=== PATIENT | male | born 1965 | race Caucasian/White ===

== ENCOUNTER → 2019-09-24 | Outpatient (CLI) | payer BC ==
--- NOTE | 2019-09-24 13:40 | EST ---
EXERCISE STRESS DATE OF SERVICE: 09/24/2019 AGE: 54 SEX: Male HT: 69" WT: 173 pounds PROTOCOL: Tejinder STAGE: III DURATION OF EXERCISE: 7 minutes 19 seconds HEART RATE REST: 70 BLOOD PRESSURE REST: 153/102 MAXIMUM HEART RATE ACHIEVED: 148 MAXIMUM BLOOD PRESSURE: 225/81 85% MPHR: 139 100% MPHR: 164 METS: 8.7 INDICATIONS: Physical CLINICAL INFORMATION: Baseline EKG revealed normal sinus rhythm without significant ST-T changes. Patient walked for 7 minutes 19 seconds achieved a maximal heart rate of 148 beats per minute developed fatigue and shortness of breath but did not have angina or arrhythmia. Peak blood pressure was 225/81. Patient had hypertensive response to exercise. No anginal symptoms. No EKG changes. No arrhythmia. This is a negative stress test with somewhat limited exercise capacity. There is no evidence to suggest ischemia on this stress test. MMODL / IJN: [id number] /
== END | disposition home or self-care (01) ==
LOC: RADNMMAIN 08:26
PROVIDERS: ATTEND Nurse Practitioner Family
DX: R94.31 Abnormal electrocardiogram [ECG] [EKG] (principal)
CPT/HCPCS: 93017

== ENCOUNTER 2022-02-15 12:38 | Day surgery (SDC) | payer BC ==
[2022-02-08 10:17] VITALS: BMI 23.2
[~2022-02-15 12:38] MED LIST: ALBUTEROL NEB (CONC) 2.5 MG/0.5 ML INHALATION ONE; LACTATED RINGERS 1,000 ML IV SCH; LIDOCAINE 2% (PF) 20 MG/ML 5 ML VIAL INHALATION ONE; LIDOCAINE VISCOUS 300 MG/15 ML CUP MUCOUS MEM ONE; SODIUM CHLORIDE 0.9% 1,000 ML IV SCH; fentaNYL (PF) 50 MCG/ML 2 ML AMP IV PRN
[2022-02-15 13:13] VITALS: RESP 16
[2022-02-15] MEDS ORDERED: LIDOCAINE 2% INJ 20 MG/ML (2 ML VIAL) ONE (14:45)
[2022-02-15] MEDS ORDERED: fentaNYL (PF) 50 MCG/ML 2 ML AMP ONE (14:45)
[2022-02-15] MEDS ORDERED: SUCCINYLCHOLINE CHLORIDE 100 MG/5 ML SYR IV ONE (14:45)
[2022-02-15] MEDS ORDERED: PROPOFOL 10 MG/ML 20 ML VIAL IV ONE (14:45)
[2022-02-15] MEDS ORDERED: MIDAZOLAM 2 MG/2 ML VIAL ONE (14:45)
[2022-02-15] MEDS ORDERED: ROCURONIUM 10 MG/ML (5 ML VIAL) IV ONE (14:45)
--- NOTE | 2022-02-15 15:23 | P.PCN ---
Date of Procedure: 02/15/22 Preoperative Diagnosis: Right lung mass Postoperative Diagnosis: Mass, endobronchial, causing complete obstruction of the bronchus intermedius Procedure(s) Performed: Flexible bronchoscopy Endobronchial biopsies of a mass in the bronchus intermedius Endobronchial brushings of the mass and the bronchus intermedius BAL of the mass in the bronchus intermedius. Anesthesia: GETA Surgeon: Jayde Huynh Estimated Blood Loss (ml): 20 Pathology: other Condition: stable Disposition: same day Operative Findings: The patient had a preoperative computed tomography scan of the chest using the Veran protocol. The CAT scan images were reviewed. The right lung opacity was identified it was mapped appropriately. The CAT scan images are uploaded into a USB and then into the [employer] tower. After obtaining the consent the patient was taken to the OR suite he was in tubated and put on mechanical ventilation by anesthesia then the scope was advanced to the ET tube until the Trachea was seen and it was normal and then the irais appears normal then the scope advanced to the left main and ANNEMARIE LB1- LB3 were seen and no endobronchial lesions were seen then the scope advanced to the lingula and the LB4 and LB5 were seen and no endobronchial lesions were seen the scope retracted and advanced to the left lower lobes LB6 to LB12 were seen one by one and no endobronchial lesions, then the scope was retracted back to the irais and advanced to the Right main and RUL RB1 and RB2 and RB3 were seen one by one and no endobronchial lesions were seen the scope. The posterior segment of the right upper lobe bronchus was slightly narrowed. Nevertheless, there was no endobronchial tumor. The proximal bronchus intermedius was within normal limits. However, in the mid bronchus intermedius, there was a large endobronchial tumor causing complete obstruction of the airway. The right middle lobe bronchus and the right lower lobe bronchus was not visualized as the mass was completely obstructing the airway. At that point, no navigation guidance was used. Under direct visualization, endobronchial biopsies of the mass and the bronchus intermedius was done. Following that, endobronchial brushings and bronchoalveolar lavage of the mass was done. Bleeding was e ncountered post biopsy. This was controlled by applying icewater saline into the airway and causing adequate hemostasis. At the completion of the procedure, there was no more bleeding. The bronchoscope was removed. The patient is to be extubated and transferred to recovery by BUSINESS CONTINUITY PLANNING DIRECTOR.
[2022-02-15 15:40] VITALS: TEMP 98.1
[2022-02-15 16:32] VITALS: BP 117/73; PULSE 104
--- NOTE | 2022-02-15 18:25 | CT ---
EXAMINATION TYPE: CT Chest wo con Veran Protocol DATE OF EXAM: 02/15/2022 COMPARISON: CT dated 02/01/2022 HISTORY: pre-op bronch CT DLP: 655 mGycm Automated exposure control for dose reduction was used. TECHNIQUE: Multiple CT scan of the chest without IV contrast administration as per VERAN protocol. FINDINGS: Again noted is the large mass extending from the inferior aspect of the right hilum down to the middl e and right lower lobes measuring 6.8 x 10.1 cm. The lesion circumferentially surrounds the right upp er lobe bronchus and completely obstructing the bronchus intermedius. Tiny micronodules are seen in the right lower lobe, possibly metastatic. Paraseptal emphysema seen in the upper lobes with multiple air bulla. Linear atelectasis in the left lower lobe. Fibrotic changes seen in the left lung apex. Patent trachea and left main bronchus. No pleural or pericardial effusion. No gross organomegaly. The pulmonary trunk measures 2.9 cm. Minim al arterial atherosclerotic calcifications. Subcarinal lymph node measuring 10 mm. Suspected right hi lar lymph nodes, suboptimally assessed by this CT scan. No other pathologically enlarged mediastinal or left hilar lymph nodes. No axillary lymphadenopathy. Previous cholecystectomy. Bilateral renal cysts, without gross suspicious feature. No gross aggressiv e bone lesion. IMPRESSION: Suspicious right lung mass as described above, for correlation with PET scan results and tissue diagn osis.
[2022-02-15 23:12] LABS: Appearance,BF Bloody
== END 2022-02-15 16:49 | disposition home or self-care (01) ==
LOC: ORWHC2ENDO 12:38
PROVIDERS: ATTEND Internal Medicine Critical Care Medicine
DX: C34.11 Malignant neoplasm of upper lobe, right bronchus or lung (principal); R04.2 Hemoptysis; I10 Essential (primary) hypertension; J44.9 Chronic obstructive pulmonary disease, unspecified; Z86.16 Personal history of COVID-19; Z83.3 Family history of diabetes mellitus; Z87.891 Personal history of nicotine dependence; Z90.49 Acquired absence of other specified parts of digestive tract; Z98.890 Other specified postprocedural states; Z79.02 Long term (current) use of antithrombotics/antiplatelets; Z79.899 Other long term (current) drug therapy
CPT/HCPCS: 87798 ×3; 87496; 87498; 87529; 88305; 89050; 87252; 87502; 87634; 87070; 87205; 87116; 87102; 87206; 71250; 31625; 31623; 31624; J2250; J3010; J0330; J2704; J2001; 88104; 88108

== ENCOUNTER → 2022-02-24 | Outpatient (CLI) | payer BC ==
--- NOTE | 2022-02-27 06:55 | PE ---
EXAMINATION TYPE: PET CT fusion skull to thigh DATE OF EXAM: 02/24/2022 COMPARISON: Most recent CTA chest February 01, 2022 HISTORY: Newly diagnosed lung cancer on bronchoscopy February 15, 2022 TECHNIQUE: Following the intravenous administration of 13.9 mCi of F-18 FDG, whole body images are p erformed from the skull base to the midthigh. Images are reviewed on the computer in the coronal, ax ial, and sagittal planes. Reconstructed rotating images are created on independent workstation and r eviewed on the computer. A localization and attenuation correction CT is performed in conjunction w ith the PET scan. Blood glucose level equals 98. SCAN: Initial Scan FINDINGS: SKULL BASE AND NECK: No areas of abnormal hypermetabolic uptake. CHEST, MEDIASTINUM, AND HILAR REGION: Background mild to moderate underlying emphysematous change gre atest in the upper lungs is redemonstrated. Persistent lobulated anterior right mid to lower lung mas s or neoplasm measuring approximately 9.0 x 6.4 cm axial image 106 with some peripheral atelectatic c hange and small adjacent fluid, max SUV is 19.56 on axial image 108. Suspicious 1.1 by 1.1 cm slightly hypermetabolic subcarinal lymph node axial image 95, max SUV is 2.8 1. Slight hypermetabolic focus posterior to the ascending aorta without CT correlate. Max SUV is 3.63 . ABDOMEN AND PELVIS: Near 1.0 cm hypermetabolic focus in the deep liver fusion image 114, max SUV is [address] correlate. Normal excretion. No adrenal masses. No additional areas of abnormal hypermetabolic uptake. OSSEOUS STRUCTURES: No areas of abnormal hypermetabolic uptake. OTHER CT: Elevated right hemidiaphragm with right-sided volume loss. Cholecystectomy clips are present. There are several thin-walled cysts scattered throughout both kidn eys. Retroaortic left renal vein which is normal variant is incidentally noted. Normal-appearing appe ndix. Some diverticula in the slightly redundant sigmoid colon. Enlarged prostate consistent with BPH . IMPRESSION: Large right lung mass or neoplasm. Suspect subcarinal adenopathy though nonspecific. Poss ible additional developing mediastinal adenopathy. See above. Possible nonspecific near 1.0 cm liver lesion on PET without CT correlate. Consider liver protocol contrast enhanced CT or MRI to further ev aluate.
== END | disposition home or self-care (01) ==
LOC: RADXRMAIN 10:14
PROVIDERS: ATTEND Internal Medicine Hematology & Oncology
DX: C34.11 Malignant neoplasm of upper lobe, right bronchus or lung (principal)
CPT/HCPCS: 78815; A9552

== ENCOUNTER 2022-04-09 15:57 | Inpatient (IN) | payer BC ==
[2022-04-09] MEDS ORDERED: ONDANSETRON 4 MG/2 ML VIAL IVP STA (16:11)
[2022-04-09] MEDS ORDERED: SODIUM CHLORIDE 0.9% 1,000 ML IV STA ×4 (16:11→19:49)
--- NOTE | 2022-04-09 16:30 | XR ---
EXAMINATION TYPE: XR chest 2V DATE OF EXAM: 04/09/2022 COMPARISON: 02/09/2021 HISTORY: Short of breath TECHNIQUE: FINDINGS: There is blunting right costophrenic angle. There is consolidation right lower lobe and 50% opacification right hemithorax. Left lung is clear. Heart size is normal. No heart failure. IMPRESSION: Right-sided pulmonary consolidation and pleural fluid which is mostly new compared to the old exam. No obvious heart failure.
[2022-04-09 16:36] LABS: HCT 34.1 % (39.0-53.0); HGB 10.5 gm/dL (13.0-17.5); MCH 26.4 pg (25.0-35.0); MCHC 30.9 g/dL (31.0-37.0); MCV 85.5 fL (80.0-100.0); Mean Platelet Volume 7.6; Platelet Count 228 k/uL (150-450); RBC 3.99 m/uL (4.30-5.90); RDW 15.2 % (11.5-15.5)
[2022-04-09 16:47] LABS: Albumin 2.4 g/dL (3.5-5.0); Calcium 7.1 mg/dL (8.4-10.2); Total Bilirubin 3.8 mg/dL (0.2-1.3); Total Protein 5.2 g/dL (6.3-8.2)
[2022-04-09 16:59] LABS: WBC 0.1 k/uL (3.8-10.6)
[2022-04-09] MEDS ORDERED: VANCOMYCIN IV PER PHARMACY 1 EACH MISC MISCELLANE PRN (16:59)
[2022-04-09] MEDS ORDERED: SODIUM CHLORIDE 0.9% 500 ML 500 ML IV STA (17:01)
[2022-04-09] MEDS ORDERED: CEFEPIME 2 GM in SODIUM CHLORIDE 0.9% 100 ML IVPB STA (17:04)
[2022-04-09 17:05] LABS: INR 1.4 (<1.2); Partial Thromboplastin Time 21.9 sec (22.0-30.0); Prothrombin Time 14.7 sec (9.0-12.0)
[2022-04-09] MEDS ORDERED: VANCOMYCIN 1,250 MG in SODIUM CHLORIDE 0.9% 250 ML IVPB STA (17:05)
[2022-04-09] MEDS ORDERED: NALOXONE 0.4 MG/ML 1 ML VIAL IV PRN (17:43)
[2022-04-09] MEDS ORDERED: MORPHINE SULFATE 4 MG/ML SYRINGE IV PRN (17:43)
[2022-04-09] MEDS ORDERED: ONDANSETRON 4 MG/2 ML VIAL IVP PRN (17:43)
--- NOTE | 2022-04-09 17:49 | ED ---
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 Patient's complaint of right lung pain, shortness of breath in addition to a productive cough of a greenish, brown sputum for a few days. Patient is also complaining of nausea, nonbilious nonbloody emesis, nonbloody diarrhea that has been occurring since his last chemo treatment 2-3 days ago. Presents over concern for dehydration as well as evaluation for his lung pain. Does not have a port. Denies fevers. Denies sick contacts. Denies urinary complaints. Denies headaches or blurry vision. Denies weakness or n umbness. No other acute complaints at this time. Presents for further evaluation. Denies any other chest pain. - Related Data Home Medications Medication Instructions Recorded Confirmed Benzonatate [Tessalon Perles] 100 mg PO TID PRN 04/09/22 04/09/22 ondansetron HCL [Zofran] 8 mg PO Q8HR PRN 04/09/22 04/09/22 Allergies Allergy/AdvReac Type Severity Reaction Status Date / Time No Known Allergies Allergy Verified 04/09/22 17:56 Review of Systems ROS Statement: Those systems with pertinent positive or pertinent negative responses have been documented in the HPI. Review of Systems: CONST: Denies fever EYES: Denies blurry vision ENT: Denies nasal congestion C/V: Denies Chest pain RESP: Endorses Shortness of breath GI: Denies abdominal pain : Denies dysuria SKIN: Denies rash. MSK: Denies joint pain. NEURO: Endorses fatigue ROS Other: All systems not noted in ROS Statement are negative. Past Medical History Past Medical History: Cancer, Hypertension Additional Past Medical History / Comment(s): Hx Covid 11/2020. Some emphysema. Cancer to lungs and mets to brain. History of Any Multi-Drug Resistant Organisms: None Reported Past Surgical History: Cholecystectomy Additional Past Surgical History / Comment(s): DENTAL IMPLANTS WITH ANESTHESIA,. Radiation and chemo Past Anesthesia/Blood Transfusion Reactions: No Reported Reaction Past Psychological History: No Psychological Hx Reported Smoking Status: Former smoker Past Alcohol Use History: Occasional Past Drug Use History: None Reported - Past Family History Father Family Medical History: Cancer Additional Family Medical History / Comment(s): pancreatic cancer General Exam - General Exam Comments Initial Comments: General: Appears cachectic. Appears dry. Afebrile HEAD: Normal with no signs of head trauma. EYES: PERRLA, EOMI, conjunctiva normal, no discharge. ENT: Hearing grossly intact, normal oropharynx. Dry mucous membranes. RESPIRATORY: Reduced lung sounds over the right lower lung field. Otherwise clear breath sounds the right upper lung field and left flank. No obvious rhonchi or wheezing. No respiratory distress. Saturating 96% on room air. C/V: Tachycardic with a Regular rhythm. S1 and S2 auscultated, no edema, peripheral pulses 2+ and intact throughout ABD: Abd is soft, nontender, nondistended EXT: Normal range of motion, no obvious deformity SKIN: No rashes or lesions observed on exposed skin. NEURO: Alert and oriented 4. No focal deficits. Limitations: no limitations Course Vital Signs 04/09/22 04/09/22 04/09/22 16:00 16:51 17:26 Temperature 98.6 F Pulse Rate 138 H 137 H 128 H Respiratory 18 18 18 Rate Blood Pressure 107/53 86/57 108/56 O2 Sat by Pulse 96 95 99 Oximetry 04/09/22 18:33 Temperature Pulse Rate 122 H Respiratory 18 Rate Blood Pressure 90/51 O2 Sat by Pulse 98 Oximetry Procedures - Sepsis Sepsis Focused Exam #1 Time Sepsis Criteria Met: 17:00 Sepsis Focused Exam Date: 04/09/22 Sepsis Focused Exam Time: 18:00 Sepsis Focused Exam Complete: Yes Vital Signs & RN Notes Reviewed: Yes Capillary Refill: > 2 Seconds: Fingers, Toes Peripheral Pulses: Normal: Radial (R), Radial (L) Skin Color: Normal for Patient Respiratory Exam: decreased breath sounds Cardiovascular Exam: tachycardia Medical Decision Making - Medical Decision Making Based on the patient's presentation and physical exam, I'm concerned for dehydration from the profuse diarrhea and emesis. Cannot rule out pulmonary etiology at this time with his history of cancer due to the reduced breath sounds as well as shortness of breath. We'll obtain cardiopulmonary workup as well as infectious workup. Patient was in agreement this plan. Patient has sinus tachycardia but otherwise vital signs are within normal limits. EKG shows sinus tachycardia. Laboratory studies showed a leukopenia of 0.1. Mild hyponatremia of 131. Patient is a slightly elevated bilirubin of 3.8. Calcium also slightly decreased. Covid and flu negative. Troponin is negative. Urinalysis pending at this time. Chest x-ray shows findings concerning for a right-sided pulmonary consolidation/pneumonia as well as pleural effusion both of which are new. Patient does have a history of right lung cancer which does make interpretation difficult, however with his symptoms there is concern for possible pneumonia. Patient is also leukopenia. I discussed the findings with the patient. Due to his tachycardia, leukopenia, as well as concern for pneumonia, patient also had a slight episode of hypotension with systolics in the 80s, patient did meet sepsis criteria at 1700. Patient started on empiric antibiotics of vancomycin and cefepime. Patient was given 2 L fluid boluses, and started on a normal maintenance drip. Blood pressures did improve. Lactic acid was within normal limits. Blood cultures were already sent. Patient did respond to therapy, as his heart rate was improving with fluid therapy. Blood pressure did improve following fluids as well with systolics in the 100s. Patient is resting comfortably at this time. I discussed the case with oncology isolation washer, Dr. Richardson was in agreement with this plan. Consult was placed the patient's oncologist Dr. Dent. Consult was also placed to pulmonology for the pleural effusion, lung cancer, and concern for pneumonia. I spoke with the admitting physician, Dr. Dubon who was in ag reement with this plan. Patient was admitted in serious condition to telemetry bed. - Lab Data Result diagrams: 04/09/22 16:21 04/09/22 16:21 Lab Results 04/09/22 04/09/22 04/09/22 Range/Units 16:21 16:21 16:21 WBC 0.1 L* (3.8-10.6) k/uL RBC 3.99 L (4.30-5.90) m/uL Hgb 10.5 L (13.0-17.5) gm/dL Hct 34.1 L (39.0-53.0) % MCV 85.5 (80.0-100.0) fL MCH 26.4 (25.0-35.0) pg MCHC 30.9 L (31.0-37.0) g/dL RDW 15.2 (11.5-15.5) % Plt Count 228 (150-450) k/uL MPV 7.6 Differential Comment PT 14.7 H (9.0-12.0) sec INR 1.4 H (<1.2) APTT 21.9 L (22.0-30.0) sec Sodium 131 L (137-145) mmol/L Potassium 4.0 (3.5-5.1) mmol/L Chloride 97 L (98-107) mmol/L Carbon Dioxide 24 (22-30) mmol/L Anion Gap 10 mmol/L BUN 28 H (9-20) mg/dL Creatinine 1.06 (0.66-1.25) mg/dL Est GFR (CKD-EPI)AfAm 89 (>60 ml/min/1.73 sqM) Est GFR (CKD-EPI)NonAf 77 (>60 ml/min/1.73 sqM) Glucose 97 (74-99) mg/dL Plasma Lactic Acid Adams (0.7-2.0) mmol/L Calcium 7.1 L (8.4-10.2) mg/dL Total Bilirubin 3.8 H (0.2-1.3) mg/dL AST 15 L (17-59) U/L ALT 17 (4-49) U/L Alkaline Phosphatase 179 H (38-126) U/L Troponin I (0.000-0.034) ng/mL Total Protein 5.2 L (6.3-8.2) g/dL Albumin 2.4 L (3.5-5.0) g/dL Amylase 33 (30-110) U/L Lipase 20 L (23-300) U/L Influenza Type A (PCR) (Not Detectd) Influenza Type B (PCR) (Not Detectd) RSV (PCR) (Not Detectd) SARS-CoV-2 (PCR) (Not Detectd) 04/09/22 04/09/22 04/09/22 Range/Units 16:21 16:21 16:27 WBC (3.8-10.6) k/uL RBC (4.30-5.90) m/uL Hgb (13.0-17.5) gm/dL Hct (39.0-53.0) % MCV (80.0-100.0) fL MCH (25.0-35.0) pg MCHC (31.0-37.0) g/dL RDW (11.5-15.5) % Plt Count (150-450) k/uL MPV Differential Comment PT (9.0-12.0) sec INR (<1.2) APTT (22.0-30.0) sec Sodium (137-145) mmol/L Potassium (3.5-5.1) mmol/L Chloride (98-107) mmol/L Carbon Dioxide (22-30) mmol/L Anion Gap mmol/L BUN (9-20) mg/dL Creatinine (0.66-1.25) mg/dL Est GFR (CKD-EPI)AfAm (>60 ml/min/1.73 sqM) Est GFR (CKD-EPI)NonAf (>60 ml/min/1.73 sqM) Glucose (74-99) mg/dL Plasma Lactic Acid Adams 1.3 (0.7-2.0) mmol/L Calcium (8.4-10.2) mg/dL Total Bilirubin (0.2-1.3) mg/dL AST (17-59) U/L ALT (4-49) U/L Alkaline Phosphatase (38-126) U/L Troponin I <0.012 (0.000-0.034) ng/mL Total Protein (6.3-8.2) g/dL Albumin (3.5-5.0) g/dL Amylase (30-110) U/L Lipase (23-300) U/L Influenza Type A (PCR) Not Detected (Not Detectd) Influenza Type B (PCR) Not Detected (Not Detectd) RSV (PCR) Not Detected (Not Detectd) SARS-CoV-2 (PCR) Not Detected (Not Detectd) - EKG Data -: EKG Interpreted by Me Critical Care Time Critical Care Time: Yes Total Critical Care Time: 35 Critical Care Time: Upon my evaluation, this patient had a high probability of imminent or life- threatening deterioration due to sepsis, metastatic cancer, dehydration, tachycardia which required my direct attention, intervention, and personal management. I have personally provided 35 minutes of critical care time exclusive of time spent on separately billable procedures. Time includes review of laboratory data, radiology results, discussion with consultants, and monitoring for potential decompensation. Interventions were performed as documented in my note. Disposition Clinical Impression: Pneumonia, Sepsis, Metastatic lung cancer (metastasis from lung to other site), Dehydration, Diarrhea, Nausea and vomiting, Sinus tachycardia, Post chemo evaluation, Leukopenia, Pleural effusion Disposition: ADMITTED IP TO THIS HOSP Condition: Serious Time of Disposition: 17:30
[2022-04-09] MEDS ORDERED: ONDANSETRON 4 MG TAB PO PRN (20:45)
[2022-04-09] MEDS ORDERED: BENZONATATE 100 MG CAP PO PRN (20:45)
[2022-04-09] MEDS: HEPARIN SODIUM,PORCINE/PF 5,000 UNIT/0.5 ML SYRINGE SQ SCH (23:25)
[2022-04-09] MEDS: CEFEPIME 2 GM in SODIUM CHLORIDE 0.9% 100 ML IVPB SCH (23:26)
[2022-04-10] MEDS: VANCOMYCIN 1,250 MG in SODIUM CHLORIDE 0.9% 250 ML IVPB SCH ×2 (06:26→18:47)
--- NOTE | 2022-04-10 07:23 | HP ---
HISTORY AND PHYSICAL CHIEF COMPLAINTS: Weakness and hypotension. HISTORY OF PRESENT ILLNESS: This 57-year-old gentleman with a past medical history of hypertension, COPD, also had CA lung with mets to the brain. The patient is on chemotherapy. The patient was progressively becoming weak this week and found the patient was significantly weak and hypotensive. The patient was taken to [facility]. The patient has significant neutropenia. The patient is given broad-spectrum IV antibiotics for neutropenic sepsis and possible pneumonia. The patient admitted for further evaluation and treatment. There is no history of any fever, rigors, or chills at this time. The chest x-ray which was reviewed personally by me showed evidence of possible right-sided pneumonia and effusion also. The patient also has some diarrhea. PAST MEDICAL HISTORY: History of lung cancer, hypertension, chemotherapy. HOME MEDICATIONS: Reviewed include Zofran, doses and the rest of the medications are ALLERGIES: None. FAMILY HISTORY: History of a pancreatic cancer in family. SOCIAL HISTORY: History of smoking. REVIEW OF SYSTEMS: Fourteen-point review is negative except as mentioned earlier. PHYSICAL EXAMINATION: VITAL SIGNS: Pulse is 122, blood pressure 90/51, and respirations 18. HEENT: Conjunctivae normal. Oral mucosa dry. NECK: No JVD. CARDIOVASCULAR: S1, S2. RESPIRATION: Breath sounds diminished at the bases, few scattered rhonchi and crackles on right side. ABDOMEN: Soft, nontender, no masses palpable. EXTREMITIES: No edema, no swelling. NERVOUS SYSTEM: As mentioned earlier, moves all limbs, mild diffuse weakness. SKIN: No rashes. JOINTS: No active deforming LABS: Reviewed include WBC 0.9, other labs are noted. ASSESSMENT: 1. Severe neutropenic sepsis. 2. Carcinoma lung, on chemotherapy. 3. Possible pneumonia. 4. Diarrhea, rule out C difficile colitis. 5. Hypertension. 6. Multiple medical issues. RECOMMENDATIONS: This 57-year-old gentleman presented with severe sepsis as well as hypotension. We will initiate broad-spectrum IV antibiotics, obtain the cultures. Infectious Disease and Hematology/ Oncology evaluation. Repeat labs. The patient has severe neutropenia also. Will repeat the labs and also recommend pulmonary consultation as well. Dr. Huynh has seen the patient previously. PROGNOSIS: Extremely guarded because of multiple complex medical conditions. MMODL / IJN: [id number] / [facility]
[2022-04-10 08:13] LABS: HCT 27.8 % (39.0-53.0); Hypochromasia Slight; MCH 26.8 pg (25.0-35.0); MCHC 30.8 g/dL (31.0-37.0); Platelet Count 168 k/uL (150-450); RDW 15.3 % (11.5-15.5)
[2022-04-10 08:34] LABS: African American GFR (CKD) >90 (>60 ml/min/1.73 sqM); Anion Gap 12 mmol/L; Blood Urea Nitrogen 19 mg/dL (9-20); Calcium 6.7 mg/dL (8.4-10.2); Carbon Dioxide 20 mmol/L (22-30); Chloride 103 mmol/L (98-107); Glucose 66 mg/dL (74-99); Non-African American GFR(CKD) >90 (>60 ml/min/1.73 sqM); Potassium 3.3 mmol/L (3.5-5.1); Sodium 135 mmol/L (137-145); WBC 0.1 k/uL (3.8-10.6)
[2022-04-10 08:35] LABS: HGB 8.6 gm/dL (13.0-17.5)
[2022-04-10 09:38] LABS: Rouleaux Present
[2022-04-10] MEDS: CEFEPIME 2 GM in SODIUM CHLORIDE 0.9% 100 ML IVPB SCH ×3 (10:22→23:25)
[2022-04-10] MEDS: HEPARIN SODIUM,PORCINE/PF 5,000 UNIT/0.5 ML SYRINGE SQ SCH ×3 (10:25→23:25)
--- NOTE | 2022-04-10 12:35 | P.CNPUL ---
History of Present Illness Consult date: 04/10/22 Requesting physician: Massimo Dubon Reason for consult: dyspnea, cough, COPD, hypoxemia, pleural effusion, lung mass, abnormal CXR/CT Chief complaint: Shortness of breath, abnormal chest x-ray, lung cancer. History of present illness: Pulmonary consult dated 04/10/2022. 57-year-old male with a recent diagnosis of squamous cell lung, with metastasis. The patient underwent bronchoscopy by one of my partners, in January. It showed complete obstruction of the bronchus intermedius, and he was found to have metastasis to the brain, and has had radiation to the lung and brain, and chemotherapy. The patient came in with a number of complaints including cough, shortness of breath, right-sided chest discomfort, nausea, vomiting, diarrhea, and constipation. We were consulted primarily because of the abnormal chest x- ray, showing consolidation and mass in the right lung, with a right-sided pl eural effusion. Previous notes, x-rays, CAT scans, procedure notes, were all reviewed. He is currently on 2 L nasal cannula, and saline at 20 mL an hour. In addition, he is on cefepime and vancomycin. His last chemotherapy was last Sunday. White count is 0.1, hemoglobin 8.6, hematocrit 27.8, and platelet count 260,000. PT is 14.7 with an INR 1. sodium 135, potassium 3.3, chlorides 103, CO2 20, anion gap 12, BUN 19, creatinine 0.79. Cortisol level is 40. Chest x-ray shows consolidation and infiltrate in the right lower lobe, with pleural effusion, which may be loculated. Review of Systems REVIEW OF SYSTEMS: CONSTITUTIONAL: Weakness NEUROLOGIC: [ Negative.] HEENT: [ Negative.] CARDIAC: [Negative.] PULMONARY: Shortness of breath, cough. GI: Nausea, vomiting, diarrhea, constipation. : [Negative.] RHEUMATOLOGIC: [ Negative.] IMMUNOLOGIC: [ Negative.] ENDOCRINE: [Negative. ] DERMATOLOGIC: [Negative.] Past Medical History Past Medical History: Cancer, Hypertension Additional Past Medical History / Comment(s): Hx Covid 11/2020. Some emphysema. Cancer to lungs and mets to brain. History of Any Multi-Drug Resistant Organisms: None Reported Past Surgical History: Cholecystectomy Additional Past Surgical History / Comment(s): DENTAL IMPLANTS WITH ANESTHESIA,. Radiation and chemo Past Anesthesia/Blood Transfusion Reactions: No Reported Reaction Past Psychological History: No Psychological Hx Reported Smoking Status: Former smoker Past Alcohol Use History: Occasional Past Drug Use History: None Reported - Past Family History Father Family Medical History: Cancer Additional Family Medical History / Comment(s): pancreatic cancer Medications and Allergies Home Medications Medication Instructions Recorded Confirmed Type Benzonatate [Tessalon Perles] 100 mg PO TID PRN 04/09/22 04/09/22 History ondansetron HCL [Zofran] 8 mg PO Q8HR PRN 04/09/22 04/09/22 History Allergies Allergy/AdvReac Type Severity Reaction Status Date / Time No Known Allergies Allergy Verified 04/09/22 17:56 Physical Exam Osteopathic Statement: *. No significant issues noted on an osteopathic structural exam other than those noted in the History and Physical/Consult. Vitals: Vital Signs Temp Pulse Pulse Pulse Resp BP BP 04/10/22 04:00 98.9 F 116 H 16 111/67 04/10/22 02:00 120 H 04/10/22 00:00 98.6 F 120 H 16 99/55 04/09/22 20:30 98.3 F 117 H 117 H 16 94/55 04/09/22 18:33 122 H 18 90/51 04/09/22 17:26 128 H 18 108/56 04/09/22 16:51 137 H 18 86/57 04/09/22 16:00 98.6 F 138 H 18 107/53 Pulse Ox 04/10/22 04:00 99 04/10/22 02:00 04/10/22 00:00 90 L 04/09/22 20:30 99 04/09/22 18:33 98 04/09/22 17:26 99 04/09/22 16:51 95 04/09/22 16:00 96 Intake and Output 04/09/22 04/10/22 04/10/22 22:59 06:59 14:59 Intake Total 1455 118 Output Total 450 Balance 1005 118 Intake: Intake, IV Titration 1130 Amount Cefepime 2 gm In Sodium 100 Chloride 0.9% 100 ml @ 200 mls/hr IVPB ONCE [facility] Rx#:[id number] Sodium Chloride 0.9% 1, 780 000 ml @ 130 mls/hr IV . Q7H42M [facility] Rx#:[id number] Vancomycin 1,250 mg In 250 Sodium Chloride 0.9% 250 ml @ 125 mls/hr IVPB Q[facility]H [facility] Rx#:[id number] Oral 325 118 Output: Urine 450 Other: # Voids 1 1 # Bowel Movements 1 1 Weight 65.771 kg No acute distress, oriented 3. No respiratory distress. Currently on 2 L of oxygen. HEENT examination is grossly unremarkable. Neck supple. Full range of motion. No adenopathy thyromegaly or neck vein distention. Cardiovascular examination reveals regular rhythm rate. S1-S2 normal. No S3 or S4. No discernible murmur noted. Heart rate 116 bpm. Lungs reveal clear breath sounds on the left. Severely diminished breath sounds on the right. No adventitious lung sounds. 2 L saturation is 99%. Abdomen soft bowel sounds are heard. No masses or tenderness. Extremities are intact. No cyanosis clubbing or edema. Skin is without rash or lesion. Neurologic examination is brief but nonfocal. Results - Laboratory Findings CBC and BMP: 04/10/22 07:02 04/10/22 07:02 PT/INR, D-dimer PT 14.7 sec (9.0-12.0) H 04/09/22 16:21 INR 1.4 (<1.2) H 04/09/22 16:21 Abnormal lab findings: Abnormal Labs 04/09/22 04/09/22 04/09/22 16:21 16:21 16:21 WBC 0.1 L* RBC 3.99 L Hgb 10.5 L Hct 34.1 L MCHC 30.9 L PT 14.7 H INR 1.4 H APTT 21.9 L Sodium 131 L Potassium Chloride 97 L Carbon Dioxide BUN 28 H Glucose Calcium 7.1 L Total Bilirubin 3.8 H AST 15 L Alkaline Phosphatase 179 H Total Protein 5.2 L Albumin 2.4 L Lipase 20 L 04/10/22 04/10/22 07:02 07:02 WBC 0.1 L* RBC 3.20 L Hgb 8.6 L D Hct 27.8 L MCHC 30.8 L PT INR APTT Sodium 135 L Potassium 3.3 L Chloride Carbon Dioxide 20 L BUN Glucose 66 L Calcium 6.7 L Total Bilirubin AST Alkaline Phosphatase Total Protein Albumin Lipase - Diagnostic Findings Chest x-ray: image reviewed Assessment and Plan Assessment: Severe neutropenia, secondary to recent chemotherapy. Metastatic squamous cell carcinoma of the lung, with brain metastasis, status post cranial radiation, and radiation to the lung, and recent initiation of chemotherapy. Consolidation and pleural effusion, right lung. History of coronavirus infection, November 2020. History of COPD. History of hypertension. Previous history of tobacco use. Plan: Plan dated 04/10/2022. Currently, the patient's on vancomycin and cefepime. The patient is also getting Zarxio, because of severe leukopenia/neutropenia. We will order an ultrasound of the right chest. If there is free-flowing fluid, we may recommend thoracentesis. Overall prognosis remains guarded. The patient recently was given chemotherapy, last Sunday. Many of his complaints related to the chemotherapy, including his GI issues, and his blood counts. Follow. Prognosis is guarded. No additional recommendations are made. Time with Patient: Greater than 30
[2022-04-10] MEDS ORDERED: IPRATROPIUM-ALBUTEROL 3 ML NEB INHALATION PRN (12:55)
--- NOTE | 2022-04-10 13:22 | US ---
EXAMINATION TYPE: US chest DATE OF EXAM: 04/10/2022 COMPARISON: NONE CLINICAL HISTORY: right pleural effusion. Lung CA pleural effusion. TECHNIQUE: Targeted ultrasound of the posterior lower right hemithorax EXAM MEASUREMENTS: Right Pleural Effusion pocket size: 1.8 cm Right skin surface to fluid distance: 1.9 cm Right side NOT marked for possible thoracentesis outside the dept. Pulmonologists are able to review the images in the patient?s EMR. IMPRESSIONS: Very small right-sided pleural effusion.
[2022-04-10 13:23] VITALS: BMI 20.7
--- NOTE | 2022-04-10 15:59 | P.CONS ---
History of Present Illness - Reason for Consult Consult date: 04/10/22 Metastatic Sq cell lung carcinoma Requesting physician: Kam Cotton - Chief Complaint N,V,D - History of Present Illness Mister Prasad is a very pleasant 57-year-old man with only comorbidity being hypertension 2 presented with progressive cough and dyspnea 2 months. Chest x- ray suspicious for right upper lobe lesion. CT chest 02/01/22 revealed large right hilar mass invading the wall of the distal right main pulmonary artery, 10.1 cm, involving right upper lobe, right middle lobe and extending to anterior right lower lobe, there was a 1.1 cm subcarinal lymph node. 02/15/22, bronchoscopy with transbronchial biopsy positive for invasive squamous cell carcinoma. Staging PET 02/24/22 suspicious uptake 9 x 6.4 cm right lung mass, 1.1 cm subcarinal lymph node, 1 cm hypermetabolic focus deep in the liver with no definite CT correlate. He also reported intermittent hemoptysis, 15 pound weight loss in the last 6 months. MRI of the brain and liver were completed. MRI of the liver did not show any definitive metastatic disease. Unfortunately, the MRI of the brain did show 2 metastatic lesions in the left cerebral hemisphere a 6 mm marrow focus was noted in the posterior right cerebellar hemisphere. He completed radiation to the brain. He also had radiation to the lung with the intent to possibly open up that airway. He has had 2 cycles of carboplatin and etoposide, cemiplimab (PD-1, PD-L1 inhibitor) added cycle 2. He did require G-CSF for 2 days after cycle 1 for low WBC. Patient has a 70 year pack history of smoking quitting 12 years ago. Since treatment last week, patient had progressive complaints of constipation, this was treated ultimately, leading to diarrhea. Patient was also having pain with his cough so, he refused cough. He began experiencing nausea and vomiting. He was no longer to tolerate oral intake. He became weaker. He had a fever and looked terrible, was recommended that he come to the hospital for evaluation. On admission he was noted to be febrile, increased heart rate, hypotensive. WBC 0.1, hemoglobin 8.6, platelets 168,000. X-ray showing some right lower lobe consolidation as well as pleural effusion. He is currently on cefepime and vancomycin. Pulmonary is been consulted. He feels better today, the family reports he looks better today. He is still having diarrhea. Review of Systems 10 point review of systems is negative except as stated in HPI Past Medical History Past Medical History: Cancer, Hypertension Additional Past Medical History / Comment(s): Hx Covid 11/2020. Some emphysema. Cancer to lungs and mets to brain. History of Any Multi-Drug Resistant Organisms: None Reported Past Surgical History: Cholecystectomy Additional Past Surgical History / Comment(s): DENTAL IMPLANTS WITH ANESTHESIA,. Radiation and chemo Past Anesthesia/Blood Transfusion Reactions: No Reported Reaction Past Psychological History: No Psychological Hx Reported Smoking Status: Former smoker Past Alcohol Use History: Occasional Past Drug Use History: None Reported - Past Family History Father Family Medical History: Cancer Additional Family Medical History / Comment(s): pancreatic cancer Medications and Allergies Home Medications Medication Instructions Recorded Confirmed Type Benzonatate [Tessalon Perles] 100 mg PO TID PRN 04/09/22 04/09/22 History ondansetron HCL [Zofran] 8 mg PO Q8HR PRN 04/09/22 04/09/22 History Allergies Allergy/AdvReac Type Severity Reaction Status Date / Time No Known Allergies Allergy Verified 04/09/22 17:56 Physical Exam Vitals: Vital Signs Temp Pulse Pulse Pulse Resp BP BP 04/10/22 04:00 98.9 F 116 H 16 111/67 04/10/22 02:00 120 H 04/10/22 00:00 98.6 F 120 H 16 99/55 04/09/22 20:30 98.3 F 117 H 117 H 16 94/55 04/09/22 18:33 122 H 18 90/51 04/09/22 17:26 128 H 18 108/56 04/09/22 16:51 137 H 18 86/57 04/09/22 16:00 98.6 F 138 H 18 107/53 Pulse Ox 04/10/22 04:00 99 04/10/22 02:00 04/10/22 00:00 90 L 04/09/22 20:30 99 04/09/22 18:33 98 04/09/22 17:26 99 04/09/22 16:51 95 04/09/22 16:00 96 Intake and Output 04/09/22 04/10/22 04/10/22 22:59 06:59 14:59 Intake Total 1455 Output Total 450 Balance 1005 Intake: Intake, IV Titration 1130 Amount Cefepime 2 gm In Sodium 100 Chloride 0.9% 100 ml @ 200 mls/hr IVPB ONCE [facility] Rx#:[id number] Sodium Chloride 0.9% 1, 780 000 ml @ 130 mls/hr IV . Q7H42M [facility] Rx#:[id number] Vancomycin 1,250 mg In 250 Sodium Chloride 0.9% 250 ml @ 125 mls/hr IVPB Q12H [facility] Rx#:[id number] Oral 325 Output: Urine 450 Other: # Voids 1 # Bowel Movements 1 Weight 65.771 kg - Constitutional General appearance: average body habitus, cooperative, no acute distress - EENT coated tongue Eyes: anicteric sclerae, EOMI ENT: hearing grossly normal - Neck Neck: no lymphadenopathy - Respiratory Respiratory: right: other (absent), left: CTA - Cardiovascular tachycardia Heart sounds: normal: S1, S2 Abnormal Heart Sounds: no systolic murmur, no diastolic murmur, no rub, no S3 Gallop, no S4 Gallop, no click, no other leg Peripheral Edema: bilateral: None - Gastrointestinal no rebound General gastrointestinal: no absent bowel sounds, no decreased bowel sounds, no distended, no hepatomegaly, no hyperactive bowel sounds, normal bowel sounds, no organomegaly, no rigid, no scaphoid, soft, no splenomegaly, no tenderness, no umbilical hernia, no ventral hernia - Neurologic Neurologic: CNII-XII intact (grossly) - Musculoskeletal Musculoskeletal: generalized weakness, strength equal bilaterally - Psychiatric Psychiatric: A&O x's 3, appropriate affect, intact judgment & insight Results CBC & Chem 7: 04/10/22 07:02 04/10/22 07:02 Labs: Abnormal Lab Results - Last 24 Hours (Table) 04/09/22 04/09/22 04/09/22 Range/Units 16:21 16:21 16:21 WBC 0.1 L* (3.8-10.6) k/uL RBC 3.99 L (4.30-5.90) m/uL Hgb 10.5 L (13.0-17.5) gm/dL Hct 34.1 L (39.0-53.0) % MCHC 30.9 L (31.0-37.0) g/dL PT 14.7 H (9.0-12.0) sec INR 1.4 H (<1.2) APTT 21.9 L (22.0-30.0) sec Sodium 131 L (137-145) mmol/L Potassium (3.5-5.1) mmol/L Chloride 97 L (98-107) mmol/L Carbon Dioxide (22-30) mmol/L BUN 28 H (9-20) mg/dL Glucose (74-99) mg/dL Calcium 7.1 L (8.4-10.2) mg/dL Total Bilirubin 3.8 H (0.2-1.3) mg/dL AST 15 L (17-59) U/L Alkaline Phosphatase 179 H (38-126) U/L Total Protein 5.2 L (6.3-8.2) g/dL Albumin 2.4 L (3.5-5.0) g/dL Lipase 20 L (23-300) U/L 04/10/22 04/10/22 Range/Units 07:02 07:02 WBC 0.1 L* (3.8-10.6) k/uL RBC 3.20 L (4.30-5.90) m/uL Hgb 8.6 L D (13.0-17.5) gm/dL Hct 27.8 L (39.0-53.0) % MCHC 30.8 L (31.0-37.0) g/dL PT (9.0-12.0) sec INR (<1.2) APTT (22.0-30.0) sec Sodium 135 L (137-145) mmol/L Potassium 3.3 L (3.5-5.1) mmol/L Chloride (98-107) mmol/L Carbon Dioxide 20 L (22-30) mmol/L BUN (9-20) mg/dL Glucose 66 L (74-99) mg/dL Calcium 6.7 L (8.4-10.2) mg/dL Total Bilirubin (0.2-1.3) mg/dL AST (17-59) U/L Alkaline Phosphatase (38-126) U/L Total Protein (6.3-8.2) g/dL Albumin (3.5-5.0) g/dL Lipase (23-300) U/L Chest x-ray: report reviewed, image reviewed Assessment and Plan (1) Nausea and vomiting Current Visit: Yes Status: Acute Priority: High Code(s): R11.2 - NAUSEA WITH VOMITING, UNSPECIFIED SNOMED Code(s): 11309575 (2) Dehydration Current Visit: Yes Status: Acute Priority: High Code(s): E86.0 - DEHYDRATION SNOMED Code(s): 58559951 (3) Diarrhea Current Visit: Yes Status: Acute Priority: High Code(s): R19.7 - DIARRHEA, UNSPECIFIED SNOMED Code(s): 87030005 (4) Leukopenia Current Visit: Yes Status: Acute Priority: High Code(s): D72.819 - DECREASED WHITE BLOOD CELL COUNT, UNSPECIFIED SNOMED Code(s): 28302695 (5) Metastatic lung cancer (metastasis from lung to other site) Current Visit: Yes Status: Acute Priority: High Code(s): C34.90 - MALIGNANT NEOPLASM OF UNSP PART OF UNSP BRONCHUS OR LUNG SNOMED Code(s): 35511097 Plan: Patient is receiving IV fluids for dehydration, 2/2 chemo SE. Creatinine improved today. Patient is on cefepime and vancomycin for febrile neutropenia. Pancultures have been ordered. Stool culture requested. Questran can be initiated. If stool studies are negative and diarrhea persists despite Questran administration, may have to consider immunotherapy-induced colitis. Physical exam though, at this time, was benign. Supportive medications for patient's symptoms. Pending Pulmonary assessment and recommendations. Mouth care for coated tongue G-CSF ordered for WBC of 0.1. Platelets are still normal. Patient will need DVT prophylaxis. Hemoglobin 8.6, no need for transfusion at this time. attests: I have performed H&P, seen and examined patient, developed impression and plan of care. Discussed with dictator. Agree with dictation, documented as a scribe
[2022-04-10] MEDS ORDERED: ONDANSETRON 4 MG/2 ML VIAL IVP PRN (16:01)
[2022-04-10] MEDS: IPRATROPIUM-ALBUTEROL 3 ML NEB INHALATION SCH ×2 (16:28→20:32)
[2022-04-10] MEDS: CHOLESTYRAMINE (WITH SUGAR) 4 GM PACKET PO SCH (17:14)
[2022-04-10] MEDS ORDERED: Potassium Replacement Protocol 1 EACH MISC MISCELLANE PRN (17:49)
[2022-04-10] MEDS: FILGRASTIM-SNDZ 480 MCG/0.8 ML SYRINGE SQ SCH (18:47)
[2022-04-10] MEDS: SALT AND SODA MOUTHWASH 1,000 ML PO SCH ×3 (18:47→23:25)
[2022-04-10] MEDS: POTASSIUM CHLORIDE ER 20 MEQ TAB.ER PO SCH (18:47)
--- NOTE | 2022-04-10 22:26 | P.CONS ---
History of Present Illness - Reason for Consult Consult date: 04/10/22 sepsis Requesting physician: Antwan Lara - Chief Complaint cough/shortness of breath x few days - History of Present Illness History of Present Illness : Patient is a 57-year male with a past medical history significant for hypertension and recent diagnosis of metastatic squamous cell carcinoma of the lung with mets to the brain currently on chemotherapy with last chemo about a week ago patient presenting to the hospital for right-sided chest pain shortness of breath and a cough that has been productive of some greenish-brown sputum symptom has been going on for few days before presentation to the hospital patient describing the pain to the chest more of a sharp 5-6 of 10 and radiation patient also complaining of nausea and did have some vomiting also complaining of constipation with no bowel movement for few days with the symptom the patient was evaluated by the ER physician on arrival to the ER patient was afebrile and no fever have subsequent recorded patient was tachycardic patient did have a white count of 0.1 creatinine has been normal liver exam symptoms mildly elevated influenza and mchugh PCR was negative patient did have a chest x-ray right-sided pulmonary consolidation and pleural fluid mostly new compared to old exam patient was started on cefepime and vancomycin infectious disease was consulted for further management of antibiotic therapy concerning for possible nosocomial pneumonia patient did have a CT of the chest completed this afternoon with a small right effusion Review of system: CONSTITUTIONAL: Positive for weakness low-grade fever. EYES: No complaint. ENT: No complaint. RESPIRATORY: As per history of present illness CARDIOVASCULAR: No complaint. GENITOURINARY: No complaint. GASTROINTESTINAL: As per history of present illness MUSCULOSKELETAL: No complaint. INTEGUMENTARY : No complaint. PSYCHOLOGIC: No complaint. ENDOCRINE: No complaint. NEUROLOGIC: No complaint. Past medical history : Reviewed, documented below Past surgical history : Reviewed, documented below Social history: Reviewed, documented below Medications: Reviewed, as documented below EXAMINATION: Vital sigans= Reviewed and documented below GENERAL DESCRIPTION: Middle-aged male lying in bed, no distress. No tachypnea or accessory muscle of respiration use. HEENT: Shows Pallor , no scleral icterus. Oral mucous membrane is dry. NECK: Trachea central, no thyromegaly. LUNGS: Unlabored breathing. Decrease intensity of breath sounds HEART: S1, S2, regular rate and rhythm. ABDOMEN: Soft, no tenderness , guarding or rigidity EXTREMITIES: No edema feet SKIN: No rash, no masses palpable. NEUROLOGICAL: The patient is awake, alert, oriented x3, mood and affect normal. LABS AND RADIOLOGY: Reviewed results see below Assessment : Patient presented to hospital with right-sided chest pain increasing shortness of breath cough with some ivory sputum production with evidence of right-sided consolidation on his chest x-ray concerning for pneumonia in this patient with metastatic lung cancer on chemotherapy and very low white count according to cover for resistant gram-positive as well as gram- negative pathogen Plan: 1-blood and sputum culture has been obtained and those will be followed 2-patient to continue the vancomycin and cefepime while watching his kidney function closely We will follow on clinical condition and cultures to further adjust medication if needed Thank you for this consultation we will follow the patient along with you Past Medical History Past Medical History: Cancer, Hypertension Additional Past Medical History / Comment(s): Hx Covid 11/2020. Some emphysema. Cancer to lungs and mets to brain. History of Any Multi-Drug Resistant Organisms: None Reported Past Surgical History: Cholecystectomy Additional Past Surgical History / Comment(s): DENTAL IMPLANTS WITH ANESTHESIA,. Radiation and chemo Past Anesthesia/Blood Transfusion Reactions: No Reported Reaction Past Psychological History: No Psychological Hx Reported Smoking Status: Former smoker Past Alcohol Use History: Occasional Past Drug Use History: None Reported - Past Family History Father Family Medical History: Cancer Additional Family Medical History / Comment(s): pancreatic cancer Medications and Allergies Home Medications Medication Instructions Recorded Confirmed Type Benzonatate [Tessalon Perles] 100 mg PO TID PRN 04/09/22 04/09/22 History ondansetron HCL [Zofran] 8 mg PO Q8HR PRN 04/09/22 04/09/22 History Allergies Allergy/AdvReac Type Severity Reaction Status Date / Time No Known Allergies Allergy Verified 04/09/22 17:56 Physical Exam Vitals: Vital Signs Temp Pulse Pulse Pulse Resp BP BP 04/10/22 04:00 98.9 F 116 H 16 111/67 04/10/22 02:00 120 H 04/10/22 00:00 98.6 F 120 H 16 99/55 04/09/22 20:30 98.3 F 117 H 117 H 16 94/55 04/09/22 18:33 122 H 18 90/51 04/09/22 17:26 128 H 18 108/56 04/09/22 16:51 137 H 18 86/57 04/09/22 16:00 98.6 F 138 H 18 107/53 Pulse Ox 04/10/22 04:00 99 04/10/22 02:00 04/10/22 00:00 90 L 04/09/22 20:30 99 04/09/22 18:33 98 04/09/22 17:26 99 04/09/22 16:51 95 04/09/22 16:00 96 Intake and Output 04/09/22 04/10/22 04/10/22 22:59 06:59 14:59 Intake Total 1455 Output Total 450 Balance 1005 Intake: Intake, IV Titration 1130 Amount Cefepime 2 gm In Sodium 100 Chloride 0.9% 100 ml @ 200 mls/hr IVPB ONCE [facility] Rx#:[id number] Sodium Chloride 0.9% 1, 780 000 ml @ 130 mls/hr IV . Q7H42M [facility] Rx#:[id number] Vancomycin 1,250 mg In 250 Sodium Chloride 0.9% 250 ml @ 125 mls/hr IVPB Q12H [facility] Rx#:[id number] Oral 325 Output: Urine 450 Other: # Voids 1 # Bowel Movements 1 Weight 65.771 kg Results CBC & Chem 7: 04/10/22 07:02 04/10/22 07:02 Labs: Abnormal Lab Results - Last 24 Hours (Table) 04/09/22 04/09/22 04/09/22 Range/Units 16:21 16:21 16:21 WBC 0.1 L* (3.8-10.6) k/uL RBC 3.99 L (4.30-5.90) m/uL Hgb 10.5 L (13.0-17.5) gm/dL Hct 34.1 L (39.0-53.0) % MCHC 30.9 L (31.0-37.0) g/dL PT 14.7 H (9.0-12.0) sec INR 1.4 H (<1.2) APTT 21.9 L (22.0-30.0) sec Sodium 131 L (137-145) mmol/L Potassium (3.5-5.1) mmol/L Chloride 97 L (98-107) mmol/L Carbon Dioxide (22-30) mmol/L BUN 28 H (9-20) mg/dL Glucose (74-99) mg/dL Calcium 7.1 L (8.4-10.2) mg/dL Total Bilirubin 3.8 H (0.2-1.3) mg/dL AST 15 L (17-59) U/L Alkaline Phosphatase 179 H (38-126) U/L Total Protein 5.2 L (6.3-8.2) g/dL Albumin 2.4 L (3.5-5.0) g/dL Lipase 20 L (23-300) U/L 04/10/22 04/10/22 Range/Units 07:02 07:02 WBC 0.1 L* (3.8-10.6) k/uL RBC 3.20 L (4.30-5.90) m/uL Hgb 8.6 L D (13.0-17.5) gm/dL Hct 27.8 L (39.0-53.0) % MCHC 30.8 L (31.0-37.0) g/dL PT (9.0-12.0) sec INR (<1.2) APTT (22.0-30.0) sec Sodium 135 L (137-145) mmol/L Potassium 3.3 L (3.5-5.1) mmol/L Chloride (98-107) mmol/L Carbon Dioxide 20 L (22-30) mmol/L BUN (9-20) mg/dL Glucose 66 L (74-99) mg/dL Calcium 6.7 L (8.4-10.2) mg/dL Total Bilirubin (0.2-1.3) mg/dL AST (17-59) U/L Alkaline Phosphatase (38-126) U/L Total Protein (6.3-8.2) g/dL Albumin (3.5-5.0) g/dL Lipase (23-300) U/L
[2022-04-10] MEDS: ACETAMINOPHEN TAB 325 MG TAB PO PRN (23:24)
[2022-04-11] MEDS ORDERED: VANCOMYCIN TROUGH DUE 1 EACH MISC MISCELLANE ONE (05:00)
[2022-04-11] MEDS: VANCOMYCIN 1,250 MG in SODIUM CHLORIDE 0.9% 250 ML IVPB SCH ×3 (05:44→22:16)
[2022-04-11] MEDS: SALT AND SODA MOUTHWASH 1,000 ML PO SCH ×5 (05:45→23:19)
[2022-04-11 05:47] LABS: HCT 25.1 % (39.0-53.0); Hypochromasia Slight; MCH 27.7 pg (25.0-35.0); MCHC 31.8 g/dL (31.0-37.0); MCV 87.2 fL (80.0-100.0); Mean Platelet Volume 7.9; Platelet Count 120 k/uL (150-450); RBC 2.87 m/uL (4.30-5.90); RDW 15.5 % (11.5-15.5)
[2022-04-11 05:54] LABS: African American GFR (CKD) >90 (>60 ml/min/1.73 sqM); Non-African American GFR(CKD) >90 (>60 ml/min/1.73 sqM)
[2022-04-11 06:01] LABS: WBC 0.1 k/uL (3.8-10.6)
[2022-04-11] MEDS: IPRATROPIUM-ALBUTEROL 3 ML NEB INHALATION SCH ×3 (08:36→20:24)
[2022-04-11] MEDS: HEPARIN SODIUM,PORCINE/PF 5,000 UNIT/0.5 ML SYRINGE SQ SCH ×3 (09:34→23:19)
[2022-04-11] MEDS: CHOLESTYRAMINE (WITH SUGAR) 4 GM PACKET PO SCH (09:34)
[2022-04-11] MEDS: CEFEPIME 2 GM in SODIUM CHLORIDE 0.9% 100 ML IVPB SCH ×2 (09:34→18:08)
--- NOTE | 2022-04-11 09:38 | P.PN ---
Subjective Progress Note Date: 04/11/22 Principal diagnosis: Lung cancer. Pulmonary consult dated 04/10/2022. 57-year-old male with a recent diagnosis of squamous cell lung, with metastasis. The patient underwent bronchoscopy by one of my partners, in January. It showed complete obstruction of the bronchus intermedius, and he was found to have metastasis to the brain, and has had radiation to the lung and brain, and chemotherapy. The patient came in with a number of complaints including cough, shortness of breath, right-sided chest discomfort, nausea, vomiting, diarrhea, and constipation. We were consulted primarily because of the abnormal chest x- ray, showing consolidation and mass in the right lung, with a right-sided pleural effusion. Previous notes, x-rays, CAT scans, procedure notes, were all reviewed. He is currently on 2 L nasal cannula, and saline at 20 mL an hour. In addition, he is on cefepime and vancomycin. His last chemotherapy was last Sunday. White count is 0.1, hemoglobin 8.6, hematocrit 27.8, and platelet count 260,000. PT is 14.7 with an INR 1. sodium 135, potassium 3.3, chlorides 103, CO2 20, anion gap 12, BUN 19, creatinine 0.79. Cortisol level is 40. Chest x-ray shows consolidation and infiltrate in the right lower lobe, with pleural effusion, which may be loculated. Progress note dated 04/11/2022. 57-year-old male seen in consultation yesterday. He has a history of metastatic squamous cell lung cancer. The patient had a right-sided pleural effusion. Ultrasound showed a very tiny right-sided effusion, not worked doing a thoracentesis on. The patient had recent chemotherapy, and it developed severe leukopenia/neutropenia. He is currently on vancomycin and cefepime. He is on 2 L of oxygen. He is getting saline at 20 mL an hour. He is stable from the pulmonary standpoint. Labs today include a white count of 0.1, hemoglobin 8, hematocrit 25.1, and a platelet count of 220,000. In essence, he has pancytopenia. Creatinine is 0.68. Objective - Vital Signs Vital signs: Vital Signs Temp 97.9 F 04/11/22 04:00 Pulse 121 H 04/11/22 08:46 Resp 16 04/11/22 08:46 BP 95/60 04/11/22 04:00 Pulse Ox 95 04/11/22 08:36 FiO2 Intake & Output 04/10/22 04/11/22 04/11/22 18:59 06:59 18:59 Intake Total 1008 Balance 1008 Weight 65.771 kg Intake: Intake, IV Titration 350 Amount Cefepime 2 gm In Sodium 100 Chloride 0.9% 100 ml @ 25 mls/hr IVPB Q8HR EZ Rx# :[id number] Vancomycin 1,250 mg In 250 Sodium Chloride 0.9% 250 ml @ 125 mls/hr IVPB Q12H EZ Rx#:[id number] Oral 658 Other: # Voids 2 2 # Bowel Movements 1 - Exam No acute distress, oriented 3. No respiratory distress. Currently on 2 L of oxygen. HEENT examination is grossly unremarkable. Neck supple. Full range of motion. No adenopathy thyromegaly or neck vein distention. Cardiovascular examination reveals regular rhythm rate. S1-S2 normal. No S3 or S4. No discernible murmur noted. Heart rate 114 bpm. Lungs reveal clear breath sounds on the left. Severely diminished breath sounds on the right. No adventitious lung sounds. 2 L saturation is 97 %. Abdomen soft bowel sounds are heard. No masses or tenderness. Extremities are intact. No cyanosis clubbing or edema. Skin is without rash or lesion. Neurologic examination is brief but nonfocal. - Labs CBC & Chem 7: 04/11/22 05:11 04/11/22 05:11 Labs: Abnormal Lab Results - Last 24 Hours (Table) 04/11/22 Range/Units 05:11 WBC 0.1 L* (3.8-10.6) k/uL RBC 2.87 L (4.30-5.90) m/uL Hgb 8.0 L (13.0-17.5) gm/dL Hct 25.1 L (39.0-53.0) % Plt Count 120 L (150-450) k/uL Microbiology - Last 24 Hours (Table) 04/10/22 09:48 Gram Stain - Preliminary Sputum Sputum Culture - Preliminary 04/09/22 17:30 Blood Culture - Preliminary Blood No Growth after 24 hours 04/09/22 17:15 Blood Culture - Preliminary Blood No Growth after 24 hours Assessment and Plan Assessment: Severe neutropenia, secondary to recent chemotherapy. Chemotherapy-induced pancytopenia. Metastatic squamous cell carcinoma of the lung, with brain metastasis, status post cranial radiation, and radiation to the lung, and recent initiation of chemotherapy. Consolidation and pleural effusion, right lung. History of coronavirus infection, November 2020. History of COPD. History of hypertension. Previous history of tobacco use. Plan: Plan dated 04/10/2022. Currently, the patient's on vancomycin and cefepime. The patient is also getting Zarxio, because of severe leukopenia/neutropenia. We will order an ultrasound of the right chest. If there is free-flowing fluid, we may recommend thoracentesis. Overall prognosis remains guarded. The patient recently was given chemotherapy, last Sunday. Many of his complaints related to the chemotherapy, including his GI issues, and his blood counts. Follow. Prognosis is guarded. No additional recommendations are made. Plan dated 04/11/2022. The results of the ultrasound which shared with the patient. He is not a candidate for thoracentesis. The patient's currently on 2 L of oxygen. His wh ite count was only 0.1. He is on vancomycin and cefepime for profound neutropenia/leukopenia. No additional recommendations are made at this time. We will continue to follow make recommendations along the way. Labs, x-rays, and medications are all reviewed. Time with Patient: Less than 30
[2022-04-11 10:00] LABS: Bilirubin, Delta 0.8 mg/dL (0.0-0.2); Bilirubin,Unconjugated 0.2 mg/dL (0.0-1.1)
[2022-04-11 12:57] LABS: Anion Gap 7 mmol/L; Blood Urea Nitrogen 17 mg/dL (9-20); Carbon Dioxide 23 mmol/L (22-30); Chloride 103 mmol/L (98-107); Glucose 88 mg/dL (74-99); Potassium 3.4 mmol/L (3.5-5.1); Sodium 133 mmol/L (137-145)
[2022-04-11] MEDS: POTASSIUM CHLORIDE ER 20 MEQ TAB.ER PO SCH (15:42)
[2022-04-11] MEDS ORDERED: LOPERAMIDE 2 MG CAP PO PRN (16:22)
--- NOTE | 2022-04-11 16:30 | P.PN ---
Subjective Progress Note Date: 04/11/22 Principal diagnosis: N, V, D. Metastatic squamous cell cancer In follow-up today patient looks better, he reports feeling better. He is having similar consistency stools (he is calling them "loose") but fewer episodes. He is denying any significant shortness of breath. He states that he has been out of bed and walking the hallways with his daughter. Objective - Vital Signs Vital signs: Vital Signs Temp 97.9 F 04/11/22 04:00 Pulse 130 H 04/11/22 12:05 Resp 16 04/11/22 08:46 BP 95/60 04/11/22 04:00 Pulse Ox 95 04/11/22 08:36 FiO2 Intake & Output 04/10/22 04/11/22 04/11/22 18:59 06:59 18:59 Intake Total 1008 720 Balance 1008 720 Weight 65.771 kg Intake: Intake, IV Titration 350 Amount Cefepime 2 gm In Sodium 100 Chloride 0.9% 100 ml @ 25 mls/hr IVPB Q8HR EZ Rx# :[id number] Vancomycin 1,250 mg In 250 Sodium Chloride 0.9% 250 ml @ 125 mls/hr IVPB Q12H EZ Rx#:[id number] Oral 658 720 Other: # Voids 2 2 # Bowel Movements 1 - Constitutional General appearance: Present: cooperative, no acute distress, thin - EENT Eyes: Present: EOMI ENT: Present: hearing grossly normal, normal oropharynx - Respiratory Respiratory: right: rales, left: CTA - Cardiovascular Details: tachy Heart sounds: normal: S1, S2 Abnormal Heart Sounds: Absent: systolic murmur, diastolic murmur, rub, S3 Gallop, S4 Gallop, click, other - Peripheral edema leg Peripheral Edema: bilateral: None - Gastrointestinal General gastrointestinal: Present: normal bowel sounds, soft - Neurologic Neurologic: Present: CNII-XII intact (grossly) - Musculoskeletal Musculoskeletal: Present: generalized weakness, strength equal bilaterally - Psychiatric Psychiatric: Present: A&O x's 3, appropriate affect, intact judgment & insight - Labs CBC & Chem 7: 04/11/22 05:11 04/11/22 05:11 Labs: Abnormal Lab Results - Last 24 Hours (Table) 04/11/22 04/11/22 Range/Units 05:11 05:11 WBC 0.1 L* (3.8-10.6) k/uL RBC 2.87 L (4.30-5.90) m/uL Hgb 8.0 L (13.0-17.5) gm/dL Hct 25.1 L (39.0-53.0) % Plt Count 120 L (150-450) k/uL Delta Bilirubin 0.8 H (0.0-0.2) mg/dL Microbiology - Last 24 Hours (Table) 04/10/22 09:48 Gram Stain - Preliminary Sputum Sputum Culture - Preliminary Presumptive Staph aureus 04/09/22 17:30 Blood Culture - Preliminary Blood No Growth after 24 hours 04/09/22 17:15 Blood Culture - Preliminary Blood No Growth after 24 hours - Imaging and Cardiology Chest ultrasound report reviewed. Pulmonary consult report reviewed Assessment and Plan (1) Nausea and vomiting Current Visit: Yes Status: Acute Priority: High Code(s): R11.2 - NAUSEA WITH VOMITING, UNSPECIFIED SNOMED Code(s): 09791976 (2) Dehydration Current Visit: Yes Status: Acute Priority: High Code(s): E86.0 - DEHYDRATION SNOMED Code(s): 81887279 (3) Diarrhea Current Visit: Yes Status: Acute Priority: High Code(s): R19.7 - DIARRHEA, UNSPECIFIED SNOMED Code(s): 97985202 (4) Leukopenia Current Visit: Yes Status: Acute Priority: High Code(s): D72.819 - DECREASED WHITE BLOOD CELL COUNT, UNSPECIFIED SNOMED Code(s): 39945232 (5) Metastatic lung cancer (metastasis from lung to other site) Current Visit: Yes Status: Acute Priority: High Code(s): C34.90 - MALIGNANT NEOPLASM OF UNSP PART OF UNSP BRONCHUS OR LUNG SNOMED Code(s): 33205493 Plan: Patient cont on IV fluids for dehydration, 2/2 chemo SE. Pt looks better. All labs look better. Patient is on cefepime and vancomycin for febrile neutropenia. Pancultures pending, so far neg. Fever pattern is improved. Stool culture neg for c-diff. Pt does not like Questran, this has been stopped and imodium ordered. Number of diarrhea episodes has decreased. Less suspicious for IO induced colitis as symptoms are resolving. Supportive medications for patient's symptoms. Pulmonary assessment and recommendations reviewed. Mouth care for coated tongue G-CSF ordered for WBC of 0.1, cont today. Platelets down to 120K today. Cont DVT prophylaxis. Hemoglobin 8, no need for transfusion at this time. RN reporting low BP. Orthostatic BP is pt has c/o dizziness. Cont fluids. attests: I have performed H&P, seen and examined patient, developed impression and plan of care. Discussed with dictator. Agree with dictation, documented as a scribe
[2022-04-11] MEDS: FILGRASTIM-SNDZ 480 MCG/0.8 ML SYRINGE SQ SCH (18:08)
[2022-04-12] MEDS: CEFEPIME 2 GM in SODIUM CHLORIDE 0.9% 100 ML IVPB SCH ×3 (00:31→17:38)
[2022-04-12] MEDS: VANCOMYCIN 1,250 MG in SODIUM CHLORIDE 0.9% 250 ML IVPB SCH ×3 (05:51→22:00)
[2022-04-12] MEDS: SALT AND SODA MOUTHWASH 1,000 ML PO SCH ×5 (05:52→23:34)
--- NOTE | 2022-04-12 07:47 | PN ---
PROGRESS NOTE SUBJECTIVE: This 57-year-old gentleman who was admitted with neutropenic sepsis and severe lung is being closely monitored. No chest pain. No palpitations. No fever. PHYSICAL EXAMINATION: VITAL SIGNS: Pulse is 124, blood pressure 100/53, respirations 18. HEENT: Conjunctivae normal. NECK: No JVD. CARDIOVASCULAR: S1, S2. RESPIRATION: Breath sounds diminished at the bases, a few scattered rhonchi. ABDOMEN: Soft. NERVOUS SYSTEM: No focal deficit. LABORATORY DATA: WBC 0.1. ASSESSMENT: 1. Severe neutropenic sepsis. 2. Carcinoma lung, on chemotherapy. 3. Possible pneumonia. 4. Diarrhea, Clostridium difficile unlikely. 5. Hypertension. 6. Multiple medical issues. RECOMMENDATIONS: I recommend to continue current medication management and continue with broad-spectrum IV antibiotics. Repeat labs. Guarded prognosis. Further recommendations to follow. Lactic acid was normal. MMODL / IJN: [id number] /
[2022-04-12] MEDS: HEPARIN SODIUM,PORCINE/PF 5,000 UNIT/0.5 ML SYRINGE SQ SCH ×3 (07:54→23:34)
[2022-04-12] MEDS: IPRATROPIUM-ALBUTEROL 3 ML NEB INHALATION SCH ×3 (08:20→21:06)
[2022-04-12 09:15] LABS: HCT 26.6 % (39.0-53.0); HGB 8.6 gm/dL (13.0-17.5); Hypochromasia Slight; MCH 27.7 pg (25.0-35.0); MCHC 32.1 g/dL (31.0-37.0); MCV 86.4 fL (80.0-100.0); Mean Platelet Volume 8.1; Platelet Count 119 k/uL (150-450); RBC 3.08 m/uL (4.30-5.90); RDW 15.7 % (11.5-15.5)
[2022-04-12 09:27] LABS: WBC 0.2 k/uL (3.8-10.6)
[2022-04-12 09:40] LABS: ALT 16 U/L (4-49); AST 12 U/L (17-59); African American GFR (CKD) >90 (>60 ml/min/1.73 sqM); Albumin 1.9 g/dL (3.5-5.0); Alkaline Phosphatase 111 U/L (38-126); Anion Gap 10 mmol/L; Blood Urea Nitrogen 11 mg/dL (9-20); Calcium 7.1 mg/dL (8.4-10.2); Carbon Dioxide 25 mmol/L (22-30); Chloride 101 mmol/L (98-107); Glucose 102 mg/dL (74-99); Non-African American GFR(CKD) >90 (>60 ml/min/1.73 sqM); Sodium 136 mmol/L (137-145); Total Bilirubin 0.9 mg/dL (0.2-1.3); Total Protein 4.3 g/dL (6.3-8.2)
[2022-04-12 09:42] LABS: Potassium 2.4 mmol/L (3.5-5.1)
[2022-04-12] MEDS ORDERED: Potassium Replacement Protocol 1 EACH MISC MISCELLANE PRN ×2 (09:42→18:03)
[2022-04-12] MEDS: POTASSIUM CHLORIDE ER 20 MEQ TAB.ER PO SCH ×6 (10:27→21:12)
--- NOTE | 2022-04-12 10:27 | CDI ---
Documentation Clarification Form Date: 04/12/2022 10:13:07 AM From: Susu Patel CCS, CCDS Admit Date: 04/09/2022 05:46:00 PM Patient Name: Taz Thomas Visit Number: [id number] Discharge Date: ATTENTION: The Clinical Documentation Specialists (CDI) and [facility] Coding Staff appreciate your assistance in clarifying documentation. Please respond to the clarification below the line at the bottom and electronically sign. The CDI & [facility] Coding staff will review the response and follow-up if needed. Please note: Queries are made part of the Legal Health Record. If you have any questions, please contact the author of this message via ITS. Dr. Antwan Lara: Pneumonia and possible Right Sided Pneumonia and Effusion is documented in the 04/09 History & Physical. Per the 04/09 ED Note, the patient presented with Nausea, Vomiting and Diarrhea. Additional clarification regarding the type of pneumonia is requested. History/Risk Factors per the 04/09 H/P: Hypertension, COPD, Cancer of the right lung with mets to the brain in chemotherapy. Former smoker. Clinical Indicators: Presented to the ED on 04/09 via EMS with Nausea, Vomiting, Diarrhea and Weakness, SOB, productive cough with greenish, brown sputum. Admit with Pneumonia, Sepsis, Metastatic Lung Cancer w/mets to the Brain, Dehydration, Diarrhea, Nausea & Vomiting, Sinus Tachycardia, Leukopenia and Pleural Effusion. 04/09 VS: T 98.6, P 138, R 18, BP 107/53, PO 96 RA, BMI 20.8 04/09 LAB: WBC 0.1, RBC 3.99, Hgb 10.5, Hct 34.1; PT 14.7, INR 1.4, APTT 21.9; Na 131, Chl 97, BUN 28, Calcium 7.1, Total Bilirubin 3.8, AST 15, Alk Phos 179, Total Protein 5.2, Albumin 2.4, Lipase 20. Influenza A/B, RSV and COVID: negative. 04/09 Blood cultures x2 (Preliminary): No growth @ 48 hrs. 04/10 Sputum culture: (Preliminary): Presumptive Staph aureus. 04/09 CXR: Right sided pulmonary consolidation and pleural fluid mostly new. Treatment 04/09: Telemetry, Oncology, Pulmonary & Infectious Disease Consults; Blood cultures, (04/10: Sputum culture), O2 2Lnc, IV Na Chl 1,000 mls @ 999 mls/hr q1H x2, IV Na Chl 1,000 mls @ 130 mls/hr q7H, IV Cefepime 100 mls @ 200 mls/hr x1, IV Vancomycin 250 ls @ 125 mls/hr x1. Please clarify the type of pneumonia, if known: [ ] Aspiration Pneumonia, Due to food or vomitus [ ] Bacterial Pneumonia, specify causal organism (if known) [ ] Viral Pneumonia, specify casual organism (if known): [ ] Other, please specify: [ ] Unable to determine Bacterial Pneumonia, organism (unknown (Template Last Revised: October 2020) MTDD
--- NOTE | 2022-04-12 10:31 | P.PN ---
Subjective Progress Note Date: 04/11/22 Principal diagnosis: Pneumonia Patient is a 57-year old male with a past medical history significant for hypertension metastatic squamous cell carcinoma, presented to hospital with right-sided chest pain did have a productive cough has been diagnosed with a pneumonia. On today's evaluation that is 04/11/2022, the patient did have a low-grade fever 100.2 around midnight and no fever since then, the patient is feeling slightly better the patient right-sided chest pain has decreased intensity still have a cough and bringing up some sputum denies any abdominal pain and no diarrhea Objective - Vital Signs Vital signs: Vital Signs Temp 97.9 F 04/11/22 04:00 Pulse 121 H 04/11/22 08:46 Resp 16 04/11/22 08:46 BP 95/60 04/11/22 04:00 Pulse Ox 95 04/11/22 08:36 FiO2 Intake & Output 04/10/22 04/11/22 04/11/22 18:59 06:59 18:59 Intake Total 1008 720 Balance 1008 720 Weight 65.771 kg Intake: Intake, IV Titration 350 Amount Cefepime 2 gm In Sodium 100 Chloride 0.9% 100 ml @ 25 mls/hr IVPB Q8HR EZ Rx# :[id number] Vancomycin 1,250 mg In 250 Sodium Chloride 0.9% 250 ml @ 125 mls/hr IVPB Q12H EZ Rx#:[id number] Oral 658 720 Other: # Voids 2 2 # Bowel Movements 1 - Exam GENERAL DESCRIPTION: Middle-age male lying in bed in no distress LUNGS: Unlabored breathing. Decreased breath sound at the base HEART: S1, S2, regular rate and rhythm. No loud murmur ABDOMEN: Soft, no tenderness , guarding or rigidity, no organomegaly EXTREMITIES: No edema of feet. - Labs CBC & Chem 7: 04/12/22 08:55 04/12/22 08:55 Labs: Abnormal Lab Results - Last 24 Hours (Table) 04/11/22 04/11/22 Range/Units 05:11 05:11 WBC 0.1 L* (3.8-10.6) k/uL RBC 2.87 L (4.30-5.90) m/uL Hgb 8.0 L (13.0-17.5) gm/dL Hct 25.1 L (39.0-53.0) % Plt Count 120 L (150-450) k/uL Delta Bilirubin 0.8 H (0.0-0.2) mg/dL Microbiology - Last 24 Hours (Table) 04/10/22 09:48 Gram Stain - Preliminary Sputum Sputum Culture - Preliminary 04/09/22 17:30 Blood Culture - Preliminary Blood No Growth after 24 hours 04/09/22 17:15 Blood Culture - Preliminary Blood No Growth after 24 hours Assessment and Plan (1) Pneumonia Current Visit: Yes Status: Acute Code(s): J18.9 - PNEUMONIA, UNSPECIFIED ORGANISM SNOMED Code(s): 750017698 Plan: 1patient presented to hospital with fever right-sided chest pain cough with evidence of pneumonia in this patient with underlying metastatic lung cancer on chemotherapy. 2blood culture has been negative sputum cultures currently pending. 3patient to continue with the cefepime and vancomycin while waiting for the culture to finalize Time with Patient: Less than 30
--- NOTE | 2022-04-12 10:33 | P.PN ---
Subjective Progress Note Date: 04/12/22 Principal diagnosis: Pneumonia Patient is a 57-year old male with a past medical history significant for hypertension metastatic squamous cell carcinoma, presented to hospital with right-sided chest pain did have a productive cough has been diagnosed with a pneumonia. On today's evaluation that is 04/12/2022, the patient is afebrile today, the patient breathing comfortably on room air, the patient right-sided chest pain has improved cough is decreasing intensity less productive output denies any nausea vomiting abdominal pain or diarrhea Objective - Vital Signs Vital signs: Vital Signs Temp 98.1 F 04/12/22 07:53 Pulse 124 H 04/12/22 08:34 Resp 16 04/12/22 07:53 BP 114/64 04/12/22 07:53 Pulse Ox 99 04/12/22 08:23 FiO2 Intake & Output 04/11/22 04/12/22 04/12/22 18:59 06:59 18:59 Intake Total 1560 240 118 Balance 1560 240 118 Intake: Oral 1560 240 118 Other: Voiding Method Toilet # Voids 1 - Exam GENERAL DESCRIPTION: Middle-age male lying in bed in no distress LUNGS: Unlabored breathing. Decreased breath sound at the base HEART: S1, S2, regular rate and rhythm. No loud murmur ABDOMEN: Soft, no tenderness , guarding or rigidity, no organomegaly EXTREMITIES: No edema of feet. - Labs CBC & Chem 7: 04/12/22 08:55 04/12/22 08:55 Labs: Abnormal Lab Results - Last 24 Hours (Table) 04/11/22 04/12/22 04/12/22 Range/Units 05:11 08:55 08:55 RBC 3.08 L (4.30-5.90) m/uL Hgb 8.6 L (13.0-17.5) gm/dL Hct 26.6 L (39.0-53.0) % RDW 15.7 H (11.5-15.5) % Plt Count 119 L (150-450) k/uL Sodium 133 L 136 L (137-145) mmol/L Potassium 3.4 L 2.4 L* (3.5-5.1) mmol/L Creatinine 0.62 L (0.66-1.25) mg/dL Glucose 102 H (74-99) mg/dL Calcium 7.0 L 7.1 L (8.4-10.2) mg/dL AST 12 L (17-59) U/L Total Protein 4.3 L (6.3-8.2) g/dL Albumin 1.9 L (3.5-5.0) g/dL Microbiology - Last 24 Hours (Table) 04/09/22 17:30 Blood Culture - Preliminary Blood No Growth after 48 hours 04/09/22 17:15 Blood Culture - Preliminary Blood No Growth after 48 hours 04/10/22 09:48 Gram Stain - Preliminary Sputum Sputum Culture - Preliminary Presumptive Staph aureus Assessment and Plan (1) Pneumonia Current Visit: Yes Status: Acute Code(s): J18.9 - PNEUMONIA, UNSPECIFIED ORGANISM SNOMED Code(s): 734613162 Plan: 1patient presented to hospital with fever right-sided chest pain cough with evidence of pneumonia in this patient with underlying metastatic lung cancer on chemotherapy. 2blood culture has been negative sputum cultures currently growing Staphylococcus with sensitivities pending 3patient to continue with the cefepime and vancomycin while waiting for the culture to finalize, adjusting antibiotic further on the basis of culture report Time with Patient: Less than 30
--- NOTE | 2022-04-12 11:36 | P.PN ---
Subjective Progress Note Date: 04/12/22 Principal diagnosis: Lung cancer. Pulmonary consult dated 04/10/2022. 57-year-old male with a recent diagnosis of squamous cell lung, with metastasis. The patient underwent bronchoscopy by one of my partners, in January. It showed complete obstruction of the bronchus intermedius, and he was found to have metastasis to the brain, and has had radiation to the lung and brain, and chemotherapy. The patient came in with a number of complaints including cough, shortness of breath, right-sided chest discomfort, nausea, vomiting, diarrhea, and constipation. We were consulted primarily because of the abnormal chest x- ray, showing consolidation and mass in the right lung, with a right-sided pleural effusion. Previous notes, x-rays, CAT scans, procedure notes, were all reviewed. He is currently on 2 L nasal cannula, and saline at 20 mL an hour. In addition, he is on cefepime and vancomycin. His last chemotherapy was last Sunday. White count is 0.1, hemoglobin 8.6, hematocrit 27.8, and platelet count 260,000. PT is 14.7 with an INR 1. sodium 135, potassium 3.3, chlorides 103, CO2 20, anion gap 12, BUN 19, creatinine 0.79. Cortisol level is 40. Chest x-ray shows consolidation and infiltrate in the right lower lobe, with pleural effusion, which may be loculated. Progress note dated 04/11/2022. 57-year-old male seen in consultation yesterday. He has a history of metastatic squamous cell lung cancer. The patient had a right-sided pleural effusion. Ultrasound showed a very tiny right-sided effusion, not worked doing a thoracentesis on. The patient had recent chemotherapy, and it developed severe leukopenia/neutropenia. He is currently on vancomycin and cefepime. He is on 2 L of oxygen. He is getting saline at 20 mL an hour. He is stable from the pulmonary standpoint. Labs today include a white count of 0.1, hemoglobin 8, hematocrit 25.1, and a platelet count of 220,000. In essence, he has pancytopenia. Creatinine is 0.68. Progress note dated 04/12/2022. 57-year-old male seen in consultation 2 days ago. The patient was admitted with a diagnosis of metastatic squamous cell lung cancer, and chemotherapy-induced pancytopenia. He had a small right-sided pleural effusion, which is not worth doing a thoracentesis on. Currently on vancomycin and cefepime. His sputum was positive for Staphylococcus aureus. He's currently on 1 L of nasal oxygen, with saturations of 99%. The patient is also getting IV fluids at [facility]. White count is 0.1, hemoglobin 8.6, hematocrit 26.6, and platelet count 219,000. Sodium 136, potassium 2.4, chlorides 101, CO2 25, anion gap 10, BUN 11, creatinine 0.62. Cortisol level was 31. The Staphylococcus in the sputum, is oxacillin sensitive, and antibiotics could likely be de-escalated. Objective - Vital Signs Vital signs: Vital Signs Temp 98.1 F 04/12/22 07:53 Pulse 124 H 04/12/22 08:34 Resp 16 04/12/22 07:53 BP 114/64 04/12/22 07:53 Pulse Ox 99 04/12/22 08:23 FiO2 Intake & Output 04/11/22 04/12/22 04/12/22 18:59 06:59 18:59 Intake Total 1560 240 118 Balance 1560 240 118 Intake: Oral 1560 240 118 Other: Voiding Method Toilet # Voids 1 - Exam No acute distress, oriented 3. No respiratory distress. Currently on 1 L of oxygen. HEENT examination is grossly unremarkable. Neck supple. Full range of motion. No adenopathy thyromegaly or neck vein distention. Cardiovascular examination reveals regular rhythm rate. S1-S2 normal. No S3 or S4. No discernible murmur noted. Heart rate 117 bpm. Lungs reveal clear breath sounds on the left. Severely diminished breath sounds on the right. No adventitious lung sounds. 1 L saturation is 99 %. Abdomen soft bowel sounds are heard. No masses or tenderness. Extremities are intact. No cyanosis clubbing or edema. Skin is without rash or lesion. Neurologic examination is brief but nonfocal. - Labs CBC & Chem 7: 04/12/22 08:55 04/12/22 08:55 Labs: Abnormal Lab Results - Last 24 Hours (Table) 04/11/22 04/12/22 04/12/22 Range/Units 05:11 08:55 08:55 RBC 3.08 L (4.30-5.90) m/uL Hgb 8.6 L (13.0-17.5) gm/dL Hct 26.6 L (39.0-53.0) % RDW 15.7 H (11.5-15.5) % Plt Count 119 L (150-450) k/uL Sodium 133 L 136 L (137-145) mmol/L Potassium 3.4 L 2.4 L* (3.5-5.1) mmol/L Creatinine 0.62 L (0.66-1.25) mg/dL Glucose 102 H (74-99) mg/dL Calcium 7.0 L 7.1 L (8.4-10.2) mg/dL AST 12 L (17-59) U/L Total Protein 4.3 L (6.3-8.2) g/dL Albumin 1.9 L (3.5-5.0) g/dL Microbiology - Last 24 Hours (Table) 04/10/22 09:48 Gram Stain - Final Sputum Sputum Culture - Final Staphylococcus aureus 04/09/22 17:30 Blood Culture - Preliminary Blood No Growth after 48 hours 04/09/22 17:15 Blood Culture - Preliminary Blood No Growth after 48 hours Assessment and Plan Assessment: Severe neutropenia, secondary to recent chemotherapy. Neutropenic sepsis, with evidence of oxacillin sensitive Staphylococcus aureus, in his sputum. Chemotherapy-induced pancytopenia. Metastatic squamous cell carcinoma of the lung, with brain metastasis, status post cranial radiation, and radiation to the lung, and recent initiation of chemotherapy. Consolidation and small pleural effusion, right lung. History of coronavirus infection, November 2020. History of COPD. History of hypertension. Previous history of tobacco use. Plan: Plan dated 04/10/2022. Currently, the patient's on vancomycin and cefepime. The patient is also getting Zarxio, because of severe leukopenia/neutropenia. We will order an ultrasound of the right chest. If there is free-flowing fluid, we may recommend thoracentesis. Overall prognosis remains guarded. The patient recently was given chemotherapy, last Sunday. Many of his complaints related to the chemotherapy, including his GI issues, and his blood counts. Follow. Prognosis is guarded. No additional recommendations are made. Plan dated 04/11/2022. The results of the ultrasound which shared with the patient. He is not a candidate for thoracentesis. The patient's currently on 2 L of oxygen. His white count was only 0.1. He is on vancomycin and cefepime for profound neutropenia/leukopenia. No additional recommendations are made at this time. We will continue to follow make recommendations along the way. Labs, x-rays, and medications are all reviewed. Plan dated 04/12/2022. The patient is doing a bit better today. The patient's sputum was positive for oxacillin sensitive Staphylococcus aureus. Antibiotics can be altered by infectious diseases. Clinically, the patient appears to be stable both from the respiratory standpoint, and hemodynamically. Labs, x-rays, and medications are reviewed. He remains on vancomycin and cefepime for the time being. We will continue to follow and make recommendations along the way. Prognosis is guarded. Time with Patient: Less than 30
[2022-04-12] MEDS: LOPERAMIDE 2 MG CAP PO SCH ×4 (11:41→22:00)
[2022-04-12] MEDS ORDERED: VANCOMYCIN TROUGH DUE 1 EACH MISC MISCELLANE ONE (13:00)
--- NOTE | 2022-04-12 13:41 | P.PN ---
Subjective Progress Note Date: 04/12/22 Principal diagnosis: N, V, D. Metastatic squamous cell cancer In follow-up today patient reports feeling better, more energy. Persistent diarrhea, he has not asked for the antidiarrheal meds. No other c/o. Objective - Vital Signs Vital signs: Vital Signs Temp 98.1 F 04/12/22 07:53 Pulse 120 H 04/12/22 12:08 Resp 16 04/12/22 11:44 BP 98/60 04/12/22 11:44 Pulse Ox 99 04/12/22 11:44 FiO2 Intake & Output 04/11/22 04/12/22 04/12/22 18:59 06:59 18:59 Intake Total 1560 240 118 Balance 1560 240 118 Intake: Oral 1560 240 118 Other: Voiding Method Toilet # Voids 1 3 - Constitutional General appearance: Present: average body habitus, cooperative, no acute distress - EENT Eyes: Present: anicteric sclerae, EOMI ENT: Present: hearing grossly normal - Respiratory Respiratory: right: diminished (rt lung base improved aeration), left: CTA - Cardiovascular Rhythm: regular Heart sounds: normal: S1, S2 Abnormal Heart Sounds: Absent: systolic murmur, diastolic murmur, rub, S3 Gallop, S4 Gallop, click, other - Peripheral edema leg Peripheral Edema: bilateral: None - Gastrointestinal General gastrointestinal: Present: normal bowel sounds, soft. Absent: absent bowel sounds, decreased bowel sounds, distended, hepatomegaly, hyperactive bowel sounds, organomegaly, rigid, scaphoid, splenomegaly, tenderness, umbilical hernia, ventral hernia - Integumentary Integumentary: Present: jaundiced - Neurologic Neurologic: Present: CNII-XII intact (grossly) - Musculoskeletal Musculoskeletal: Present: generalized weakness, strength equal bilaterally - Psychiatric Psychiatric: Present: A&O x's 3, appropriate affect, intact judgment & insight - Labs CBC & Chem 7: 04/12/22 08:55 04/12/22 08:55 Labs: Abnormal Lab Results - Last 24 Hours (Table) 04/12/22 04/12/22 Range/Units 08:55 08:55 RBC 3.08 L (4.30-5.90) m/uL Hgb 8.6 L (13.0-17.5) gm/dL Hct 26.6 L (39.0-53.0) % RDW 15.7 H (11.5-15.5) % Plt Count 119 L (150-450) k/uL Sodium 136 L (137-145) mmol/L Potassium 2.4 L* (3.5-5.1) mmol/L Creatinine 0.62 L (0.66-1.25) mg/dL Glucose 102 H (74-99) mg/dL Calcium 7.1 L (8.4-10.2) mg/dL AST 12 L (17-59) U/L Total Protein 4.3 L (6.3-8.2) g/dL Albumin 1.9 L (3.5-5.0) g/dL Microbiology - Last 24 Hours (Table) 04/10/22 09:48 Gram Stain - Final Sputum Sputum Culture - Final Staphylococcus aureus 04/09/22 17:30 Blood Culture - Preliminary Blood No Growth after 48 hours 04/09/22 17:15 Blood Culture - Preliminary Blood No Growth after 48 hours Assessment and Plan (1) Nausea and vomiting Current Visit: Yes Status: Acute Priority: High Code(s): R11.2 - NAUSEA WITH VOMITING, UNSPECIFIED SNOMED Code(s): 07093855 (2) Dehydration Current Visit: Yes Status: Acute Priority: High Code(s): E86.0 - DEHYDRATION SNOMED Code(s): 14121664 (3) Diarrhea Current Visit: Yes Status: Acute Priority: High Code(s): R19.7 - DIARRHEA, UNSPECIFIED SNOMED Code(s): 50984991 (4) Leukopenia Current Visit: Yes Status: Acute Priority: High Code(s): D72.819 - DECREASED WHITE BLOOD CELL COUNT, UNSPECIFIED SNOMED Code(s): 91846265 (5) Metastatic lung cancer (metastasis from lung to other site) Current Visit: Yes Status: Acute Priority: High Code(s): C34.90 - MALIGNANT NEOPLASM OF UNSP PART OF UNSP BRONCHUS OR LUNG SNOMED Code(s): 34304942 Plan: Patient cont on IV fluids for dehydration, 2/2 chemo SE. Cont slow improvement. Patient is on cefepime and vancomycin for febrile neutropenia. Sputum + staph au. Fever pattern is improved. Stool culture neg for c-diff. Pt forgetting to ask for PRN imodium, changed order to sched. Supportive medications for patient's symptoms. No further N, V Pulmonary assessment and recommendations reviewed. Mouth care G-CSF ordered for WBC of 0.1. Still Pending a WBC/ANC count 04/12 at 1340. Platelets stable at 119K today. Cont DVT prophylaxis. Hemoglobin up to 8.6, no need for transfusion at this time. ADRIEN still noted to be running low, but stable. Cont fluids. attests: I have performed H&P, seen and examined patient, developed impression and plan of care. Discussed with dictator. Agree with dictation, documented as a scribe
[2022-04-12] MEDS: FILGRASTIM-SNDZ 480 MCG/0.8 ML SYRINGE SQ SCH (18:48)
--- NOTE | 2022-04-12 18:53 | CA ---
Transthoracic Echo Report Name: Taz Thomas Age: 57 Gender: M : 1965 Exam Date: 04/12/2022 11:26 Exam Location: [facility] Ht (in): 70 Wt (lb): 145 Ordering Physician: Antwan Lara MD Attending/Referring Phys: Educational Technology Coordinator Katharina Kitchen RDCS Procedure CPT: Indications: tachycardia Cardiac Hx: Technical Quality: Fair Contrast 1: Total Dose (mL): Contrast 2: Total Dose (mL): MEASUREMENTS (Male / Female) Normal Values 2D ECHO LV Diastolic Diameter PLAX 4.4 cm 4.2 - 5.9 / 3.9 - 5.3 cm LV Systolic Diameter PLAX 2.8 cm IVS Diastolic Thickness 0.9 cm 0.6 - 1.0 / 0.6 - 0.9 cm LVPW Diastolic Thickness 1.1 cm 0.6 - 1.0 / 0.6 - 0.9 cm LV Relative Wall Thickness 0.5 RV Internal Dim ED PLAX 2.7 cm LA Volume 30.4 cm??? 18 - 58 / 22 - 52 cm??? M-MODE Aortic Root Diameter MM 3.0 cm LA Systolic Diameter MM 3.2 cm LA Ao Ratio MM 1.1 AV Cusp Separation MM 1.8 cm DOPPLER AV Peak Velocity 164.9 cm/s AV Peak Gradient 10.9 mmHg LVOT Peak Velocity 137.9 cm/s LVOT Peak Gradient 7.6 mmHg MV Area PHT 5.8 cm??? Mitral E Point Velocity 91.2 cm/s Mitral A Point Velocity 113.0 cm/s Mitral E to A Ratio 0.8 MV Deceleration Time 131.1 ms TR Peak Velocity 272.5 cm/s TR Peak Gradient 29.7 mmHg Right Ventricular Systolic Press 34.7 mmHg FINDINGS Left Ventricle Normal Left ventricular size, wall thickness, systolic function with no obvious regional wall motion abnormalities. Normal Left ventricular diastolic filling pattern. Left ventricular ejection fraction is estimated at 55-60 %. Right Ventricle Normal right ventricular size and function. Right Atrium Normal right atrial size. Left Atrium Normal left atrial size. No evidence for an atrial septal defect. Mitral Valve Structurally normal mitral valve. No mitral stenosis, regurgitation or prolapse. Aortic Valve No aortic valve stenosis or regurgitation.trileaflet aortic valve. Tricuspid Valve Mild tricuspid regurgitation.structurally normal tricuspid valve. Pulmonic Valve Structurally normal pulmonic valve. Pericardium No pericardial effusion. Aorta Normal size aortic root and proximal ascending aorta. CONCLUSIONS 1. Normal left ventricle size and systolic function 2. Mild mitral and tricuspid regurgitation 3. No pericardial effusion Previewed by: Dr. Ronna Luis MD (Electronically Signed) Final Date: 12 April 2022 18:52
[2022-04-13] MEDS: CEFEPIME 2 GM in SODIUM CHLORIDE 0.9% 100 ML IVPB SCH ×2 (01:21→08:26)
--- NOTE | 2022-04-13 04:58 | PN ---
PROGRESS NOTE SUBJECTIVE: This is a 57-year-old gentleman admitted with neutropenic sepsis and pneumonia is being closely monitored. No chest pain. No palpitations. The patient is on chemotherapy. PHYSICAL EXAMINATION: VITAL SIGNS: Pulse is 126, blood pressure 98/50, respirations 16. HEENT: Conjunctivae normal. NECK: No JVD. CARDIOVASCULAR: S1, S2. RESPIRATION: Breath sounds diminished at the bases, a few scattered rhonchi. ABDOMEN: Soft. NERVOUS SYSTEM: No focal deficit. LABS: Potassium 2.4. ASSESSMENT: 1. Severe neutropenic sepsis. 2. Carcinoma lung, on chemotherapy. 3. Pneumonia. 4. Diarrhea. Clostridium difficile unlikely. 5. Hypertension. 6. Multiple medical issues. RECOMMENDATIONS: I recommend to continue current medications. Continue with broad-spectrum IV antibiotics. Otherwise, replace potassium. See orders for details. Continue with IV antibiotics. Follow closely with multiple consultants. Prognosis guarded. Further recommendations to follow. MMODL / IJN: [id number] /
[2022-04-13] MEDS: SALT AND SODA MOUTHWASH 1,000 ML PO SCH ×5 (05:46→23:38)
[2022-04-13] MEDS: VANCOMYCIN 1,250 MG in SODIUM CHLORIDE 0.9% 250 ML IVPB SCH (06:33)
[2022-04-13 08:16] LABS: HCT 26.8 % (39.0-53.0); HGB 8.5 gm/dL (13.0-17.5); Hypochromasia Slight; MCH 27.3 pg (25.0-35.0); MCHC 31.6 g/dL (31.0-37.0); MCV 86.3 fL (80.0-100.0); Mean Platelet Volume 8.6; Platelet Count 133 k/uL (150-450); RBC 3.11 m/uL (4.30-5.90); RDW 15.5 % (11.5-15.5)
[2022-04-13 08:23] LABS: WBC 0.3 k/uL (3.8-10.6)
[2022-04-13] MEDS: LOPERAMIDE 2 MG CAP PO SCH ×2 (08:25→21:00)
[2022-04-13] MEDS: HEPARIN SODIUM,PORCINE/PF 5,000 UNIT/0.5 ML SYRINGE SQ SCH ×3 (08:25→23:38)
[2022-04-13 08:29] LABS: African American GFR (CKD) >90 (>60 ml/min/1.73 sqM); Anion Gap 8 mmol/L; Blood Urea Nitrogen 8 mg/dL (9-20); Carbon Dioxide 25 mmol/L (22-30); Chloride 103 mmol/L (98-107); Glucose 103 mg/dL (74-99); Non-African American GFR(CKD) >90 (>60 ml/min/1.73 sqM); Sodium 136 mmol/L (137-145)
[2022-04-13 08:37] LABS: Potassium 2.5 mmol/L (3.5-5.1)
[2022-04-13] MEDS ORDERED: Potassium Replacement Protocol 1 EACH MISC MISCELLANE PRN ×2 (08:38→13:17)
[2022-04-13] MEDS ORDERED: POTASSIUM CHLORIDE ER 20 MEQ TAB.ER PO STA ×2 (08:40→15:13)
[2022-04-13] MEDS: POTASSIUM CHLORIDE ER 20 MEQ TAB.ER PO SCH ×3 (08:43→09:41)
[2022-04-13] MEDS: IPRATROPIUM-ALBUTEROL 3 ML NEB INHALATION SCH ×3 (08:52→21:26)
--- NOTE | 2022-04-13 12:30 | P.PN ---
Subjective Progress Note Date: 04/13/22 Principal diagnosis: N, V, D. Metastatic squamous cell cancer In follow-up today patient reports that he cont to improve. He had 2 stools since yesterday, stool is less watery. Less SOB, he is ambulating. No other c/o. Objective - Vital Signs Vital signs: Vital Signs Temp 98.7 F 04/13/22 08:21 Pulse 128 H 04/13/22 12:05 Resp 18 04/13/22 12:00 BP 106/66 04/13/22 12:00 Pulse Ox 98 04/13/22 12:00 FiO2 Intake & Output 04/12/22 04/13/22 04/13/22 18:59 06:59 18:59 Intake Total 598 490 210 Balance 598 490 210 Intake: IV 10 10 Invasive Line 1 10 10 Oral 598 480 200 Other: Voiding Method Toilet # Voids 3 2 - Constitutional General appearance: Present: cooperative, no acute distress, thin - EENT Eyes: Present: anicteric sclerae, EOMI ENT: Present: hearing grossly normal - Respiratory Respiratory: bilateral: rales (bases) - Cardiovascular Heart sounds: normal: S1, S2 Abnormal Heart Sounds: Absent: systolic murmur, diastolic murmur, rub, S3 Gallop, S4 Gallop, click, other - Peripheral edema leg Peripheral Edema: bilateral: None - Integumentary Integumentary: Present: normal - Neurologic Neurologic: Present: CNII-XII intact - Musculoskeletal Musculoskeletal: Present: generalized weakness, strength equal bilaterally - Psychiatric Psychiatric: Present: A&O x's 3, appropriate affect, intact judgment & insight - Labs CBC & Chem 7: 04/13/22 08:01 04/13/22 08:01 Labs: Abnormal Lab Results - Last 24 Hours (Table) 04/12/22 04/12/22 04/13/22 Range/Units 08:55 16:31 08:01 WBC 0.2 L* 0.3 L* (3.8-10.6) k/uL RBC 3.11 L (4.30-5.90) m/uL Hgb 8.5 L (13.0-17.5) gm/dL Hct 26.8 L (39.0-53.0) % Plt Count 133 L (150-450) k/uL Sodium (137-145) mmol/L Potassium 2.6 L* (3.5-5.1) mmol/L BUN (9-20) mg/dL Creatinine (0.66-1.25) mg/dL Glucose (74-99) mg/dL Calcium (8.4-10.2) mg/dL 04/13/22 Range/Units 08:01 WBC (3.8-10.6) k/uL RBC (4.30-5.90) m/uL Hgb (13.0-17.5) gm/dL Hct (39.0-53.0) % Plt Count (150-450) k/uL Sodium 136 L (137-145) mmol/L Potassium 2.5 L* (3.5-5.1) mmol/L BUN 8 L (9-20) mg/dL Creatinine 0.58 L (0.66-1.25) mg/dL Glucose 103 H (74-99) mg/dL Calcium 7.0 L (8.4-10.2) mg/dL Microbiology - Last 24 Hours (Table) 04/09/22 17:15 Blood Culture - Preliminary Blood No Growth after 72 hours 04/09/22 17:30 Blood Culture - Preliminary Blood No Growth after 72 hours 04/10/22 09:48 Gram Stain - Final Sputum Sputum Culture - Final Staphylococcus aureus Assessment and Plan (1) Nausea and vomiting Current Visit: Yes Status: Acute Priority: High Code(s): R11.2 - NAUSEA WITH VOMITING, UNSPECIFIED SNOMED Code(s): 79770623 (2) Dehydration Current Visit: Yes Status: Acute Priority: High Code(s): E86.0 - DEHYDRATION SNOMED Code(s): 91800283 (3) Diarrhea Current Visit: Yes Status: Acute Priority: High Code(s): R19.7 - DIARRHEA, UNSPECIFIED SNOMED Code(s): 65118390 (4) Leukopenia Current Visit: Yes Status: Acute Priority: High Code(s): D72.819 - DECREASED WHITE BLOOD CELL COUNT, UNSPECIFIED SNOMED Code(s): 03302211 (5) Metastatic lung cancer (metastasis from lung to other site) Current Visit: Yes Status: Acute Priority: High Code(s): C34.90 - MALIGNANT NEOPLASM OF UNSP PART OF UNSP BRONCHUS OR LUNG SNOMED Code(s): 67770662 Plan: Patient cont on IV fluids for dehydration, 2/2 chemo SE. He is needing K+ after diarrhea. On K+ replacement protocol. Cont improvement. Patient is on cefepime and vancomycin for febrile neutropenia. Sputum + staph au. Fever pattern is improved. Stool culture neg for c-diff. Sched imodium, decrease to BID and PRN. Supportive medications for patient's symptoms. No further N, V Mouth care cont, oral cavity looks good G-CSF ordered, WBC 0.3 today, cont. Platelets stable at 133K today. Cont DVT prophylaxis. Hemoglobin stable 8.5, no need for transfusion at this time. BP improved. Pt had ECHO for sustained tachycardia, no abnormalities noted. attests: I have performed H&P, seen and examined patient, developed impression and plan of care. Discussed with dictator. Agree with dictation, documented as a scribe
[2022-04-13] MEDS ORDERED: LOPERAMIDE 2 MG CAP PO PRN (12:31)
--- NOTE | 2022-04-13 12:38 | P.PN ---
Subjective Progress Note Date: 04/13/22 Principal diagnosis: Lung cancer. Pulmonary consult dated 04/10/2022. 57-year-old male with a recent diagnosis of squamous cell lung, with metastasis. The patient underwent bronchoscopy by one of my partners, in January. It showed complete obstruction of the bronchus intermedius, and he was found to have metastasis to the brain, and has had radiation to the lung and brain, and chemotherapy. The patient came in with a number of complaints including cough, shortness of breath, right-sided chest discomfort, nausea, vomiting, diarrhea, and constipation. We were consulted primarily because of the abnormal chest x- ray, showing consolidation and mass in the right lung, with a right-sided pleural effusion. Previous notes, x-rays, CAT scans, procedure notes, were all reviewed. He is currently on 2 L nasal cannula, and saline at 20 mL an hour. In addition, he is on cefepime and vancomycin. His last chemotherapy was last Sunday. White count is 0.1, hemoglobin 8.6, hematocrit 27.8, and platelet count 260,000. PT is 14.7 with an INR 1. sodium 135, potassium 3.3, chlorides 103, CO2 20, anion gap 12, BUN 19, creatinine 0.79. Cortisol level is 40. Chest x-ray shows consolidation and infiltrate in the right lower lobe, with pleural effusion, which may be loculated. Progress note dated 04/11/2022. 57-year-old male seen in consultation yesterday. He has a history of metastatic squamous cell lung cancer. The patient had a right-sided pleural effusion. Ultrasound showed a very tiny right-sided effusion, not worked doing a thoracentesis on. The patient had recent chemotherapy, and it developed severe leukopenia/neutropenia. He is currently on vancomycin and cefepime. He is on 2 L of oxygen. He is getting saline at 20 mL an hour. He is stable from the pulmonary standpoint. Labs today include a white count of 0.1, hemoglobin 8, hematocrit 25.1, and a platelet count of 220,000. In essence, he has pancytopenia. Creatinine is 0.68. Progress note dated 04/12/2022. 57-year-old male seen in consultation 2 days ago. The patient was admitted with a diagnosis of metastatic squamous cell lung cancer, and chemotherapy-induced pancytopenia. He had a small right-sided pleural effusion, which is not worth doing a thoracentesis on. Currently on vancomycin and cefepime. His sputum was positive for Staphylococcus aureus. He's currently on 1 L of nasal oxygen, with saturations of 99%. The patient is also getting IV fluids at [facility]. White count is 0.1, hemoglobin 8.6, hematocrit 26.6, and platelet count 219,000. Sodium 136, potassium 2.4, chlorides 101, CO2 25, anion gap 10, BUN 11, creatinine 0.62. Cortisol level was 31. The Staphylococcus in the sputum, is oxacillin sensitive, and antibiotics could likely be de-escalated. Progress note dated 04/13/2022. 57-year-old male seen again in room 359. The patient's feeling much better. H e's currently on room air. He is getting saline at 20 mL an hour. The patient's white blood count is up 0.3 from 0.1. Hemoglobin 8.5, hematocrit 26.8, and platelet count 233,000. Sodium 136, potassium 2.5, chlorides 103, CO2 25, BUN 8, and creatinine 0.58. Sputum from April 10 shows oxacillin sensitive staph aureus. The patient remains on cefepime and vancomycin. He appears much more stable clinically today. Objective - Vital Signs Vital signs: Vital Signs Temp 98.7 F 04/13/22 08:21 Pulse 128 H 04/13/22 12:17 Resp 18 04/13/22 12:00 BP 106/66 04/13/22 12:00 Pulse Ox 98 04/13/22 12:00 FiO2 Intake & Output 04/12/22 04/13/22 04/13/22 18:59 06:59 18:59 Intake Total 598 490 210 Balance 598 490 210 Intake: IV 10 10 Invasive Line 1 10 10 Oral 598 480 200 Other: Voiding Method Toilet # Voids 3 2 - Exam No acute distress, oriented 3. No respiratory distress. Room air saturation 98%. HEENT examination is grossly unremarkable. Neck supple. Full range of motion. No adenopathy thyromegaly or neck vein distention. Cardiovascular examination reveals regular rhythm rate. S1-S2 normal. No S3 or S4. No discernible murmur noted. Heart rate 107 bpm. Lungs reveal clear breath sounds on the left. Severely diminished breath sounds on the right. No adventitious lung sounds. Abdomen soft bowel sounds are heard. No masses or tenderness. Extremities are intact. No cyanosis clubbing or edema. Skin is without rash or lesion. Neurologic examination is brief but nonfocal. - Labs CBC & Chem 7: 04/13/22 08:01 04/13/22 08:01 Labs: Abnormal Lab Results - Last 24 Hours (Table) 04/12/22 04/12/22 04/13/22 Range/Units 08:55 16:31 08:01 WBC 0.2 L* 0.3 L* (3.8-10.6) k/uL RBC 3.11 L (4.30-5.90) m/uL Hgb 8.5 L (13.0-17.5) gm/dL Hct 26.8 L (39.0-53.0) % Plt Count 133 L (150-450) k/uL Sodium (137-145) mmol/L Potassium 2.6 L* (3.5-5.1) mmol/L BUN (9-20) mg/dL Creatinine (0.66-1.25) mg/dL Glucose (74-99) mg/dL Calcium (8.4-10.2) mg/dL 04/13/22 Range/Units 08:01 WBC (3.8-10.6) k/uL RBC (4.30-5.90) m/uL Hgb (13.0-17.5) gm/dL Hct (39.0-53.0) % Plt Count (150-450) k/uL Sodium 136 L (137-145) mmol/L Potassium 2.5 L* (3.5-5.1) mmol/L BUN 8 L (9-20) mg/dL Creatinine 0.58 L (0.66-1.25) mg/dL Glucose 103 H (74-99) mg/dL Calcium 7.0 L (8.4-10.2) mg/dL Microbiology - Last 24 Hours (Table) 04/09/22 17:15 Blood Culture - Preliminary Blood No Growth after 72 hours 04/09/22 17:30 Blood Culture - Preliminary Blood No Growth after 72 hours 04/10/22 09:48 Gram Stain - Final Sputum Sputum Culture - Final Staphylococcus aureus Assessment and Plan Assessment: Severe neutropenia, secondary to recent chemotherapy. Neutropenic sepsis, with evidence of oxacillin sensitive Staphylococcus aureus, in his sputum. Chemotherapy-induced pancytopenia. Metastatic squamous cell carcinoma of the lung, with brain metastasis, status post cranial radiation, and radiation to the lung, and recent initiation of chemotherapy. Consolidation and small pleural effusion, right lung. History of coronavirus infection, November 2020. History of COPD. History of hypertension. Previous history of tobacco use. Plan: Plan dated 04/10/2022. Currently, the patient's on vancomycin and cefepime. The patient is also getting Zarxio, because of severe leukopenia/neutropenia. We will order an ultrasound of the right chest. If there is free-flowing fluid, we may recommend thoracentesis. Overall prognosis remains guarded. The patient recently was given chemotherapy, last Sunday. Many of his complaints related to the chemotherapy, including his GI issues, and his blood counts. Follow. Prognosis is guarded. No additional recommendations are made. Plan dated 04/11/2022. The results of the ultrasound which shared with the patient. He is not a candidate for thoracentesis. The patient's currently on 2 L of oxygen. His white count was only 0.1. He is on vancomycin and cefepime for profound neutropenia/leukopenia. No additional recommendations are made at this time. We will continue to follow make recommendations along the way. Labs, x-rays, and medications are all reviewed. Plan dated 04/12/2022. The patient is doing a bit better today. The patient's sputum was positive for oxacillin sensitive Staphylococcus aureus. Antibiotics can be altered by infectious diseases. Clinically, the patient appears to be stable both from the respiratory standpoint, and hemodynamically. Labs, x-rays, and medications are reviewed. He remains on vancomycin and cefepime for the time being. We will continue to follow and make recommendations along the way. Prognosis is guarded. Plan dated 04/13/2022. The patient's doing well. He is on room air. He continues on antibiotics. The sputum was positive for oxacillin sensitive staph aureus. He does remain on vancomycin and cefepime. Infectious disease doctor will likely alter his antibiotics. Additional recommendations and suggestions are forthcoming. Prognosis is certainly guarded. We will continue to follow make recommendations along the way. Labs, x-rays, and medications are all reviewed. Time with Patient: Less than 30
[2022-04-13] MEDS ORDERED: LACTOBACILLUS ACIDOPH & BULGAR 1 EACH PACKET PO SCH (13:30)
[2022-04-13 15:07] LABS: Magnesium 1.5 mg/dL (1.6-2.3); Potassium 3.2 mmol/L (3.5-5.1)
[2022-04-13] MEDS ORDERED: Magnesium Replacement Protocol 1 EACH MISC MISCELLANE PRN (15:12)
[2022-04-13] MEDS: METOPROLOL TARTRATE 12.5 MG TAB PO SCH ×2 (15:14→20:56)
[2022-04-13] MEDS: POTASSIUM CHLORIDE 10 MEQ in WATER FOR INJECTION 1 100ML.BAG IVPB SCH ×2 (15:22→19:03)
[2022-04-13] MEDS: MAGNESIUM SULFATE-D5W PMX 1 GM in DEXTROSE/WATER 1 100ML.BAG IVPB SCH ×2 (15:52→17:33)
[2022-04-13] MEDS: ACETAMINOPHEN TAB 325 MG TAB PO PRN (15:53)
[2022-04-13] MEDS: FILGRASTIM-SNDZ 480 MCG/0.8 ML SYRINGE SQ SCH (21:00)
[2022-04-14] MEDS ORDERED: VANCOMYCIN TROUGH DUE 1 EACH MISC MISCELLANE ONE (05:00)
[2022-04-14 06:28] LABS: HGB 7.6 gm/dL (13.0-17.5); Hypochromasia Slight; MCH 27.6 pg (25.0-35.0); MCHC 31.8 g/dL (31.0-37.0); MCV 86.6 fL (80.0-100.0); Mean Platelet Volume 9.2; Platelet Count 194 k/uL (150-450); RBC 2.78 m/uL (4.30-5.90); RDW 15.9 % (11.5-15.5)
[2022-04-14] MEDS: SALT AND SODA MOUTHWASH 1,000 ML PO SCH ×4 (06:58→21:30)
[2022-04-14] MEDS: LACTOBACILLUS ACIDOPH & BULGAR 1 EACH PACKET PO SCH ×2 (06:59→15:37)
[2022-04-14 07:09] LABS: ALT 14 U/L (4-49); AST 14 U/L (17-59); African American GFR (CKD) >90 (>60 ml/min/1.73 sqM); Albumin 1.9 g/dL (3.5-5.0); Alkaline Phosphatase 163 U/L (38-126); Anion Gap 6 mmol/L; Blood Urea Nitrogen 11 mg/dL (9-20); Calcium 7.1 mg/dL (8.4-10.2); Carbon Dioxide 27 mmol/L (22-30); Chloride 104 mmol/L (98-107); Glucose 113 mg/dL (74-99); Magnesium 1.8 mg/dL (1.6-2.3); Non-African American GFR(CKD) >90 (>60 ml/min/1.73 sqM); Potassium 3.3 mmol/L (3.5-5.1); Sodium 137 mmol/L (137-145); Total Bilirubin 0.6 mg/dL (0.2-1.3)
[2022-04-14] MEDS: IPRATROPIUM-ALBUTEROL 3 ML NEB INHALATION SCH ×3 (07:27→20:33)
--- NOTE | 2022-04-14 07:45 | PN ---
PROGRESS NOTE SUBJECTIVE: This is a 57-year-old gentleman admitted with possible pneumonia and sepsis, also history of carcinoma of lung, also the patient has some diarrhea. No chest pain. No palpitations. No fever. Cultures showed Staph aureus, which is MSSA. PHYSICAL EXAMINATION: VITAL SIGNS: Pulse is 129, blood pressure 90/50, respiration 16. HEENT: Conjunctivae normal. NECK: No JVD. CARDIOVASCULAR: No murmurs. RESPIRATIONS: Breath sounds diminished at the bases. Scattered rhonchi. ABDOMEN: Soft, nontender . LEGS: No edema. NERVOUS SYSTEM: No focal deficits. LABS: Potassium 3.2. WBC 0.3. ASSESSMENT: 1. Severe neutropenic sepsis with continued fever. 2. Carcinoma lung, on chemotherapy. 3. Pneumonia. 4. Diarrhea, Clostridium difficile unlikely. 5. Hypertension. 6. Multiple medical issues. RECOMMENDATIONS AND DISCUSSION: I recommend to continue current medication management and repeat cultures. Prognosis guarded because of multiple complex medical issues. Further recommendations to follow. See orders for further details. MMODL / IJN: [id number] /
[2022-04-14] MEDS: METOPROLOL TARTRATE 12.5 MG TAB PO SCH (09:20)
[2022-04-14] MEDS: HEPARIN SODIUM,PORCINE/PF 5,000 UNIT/0.5 ML SYRINGE SQ SCH ×2 (09:35→15:38)
[2022-04-14] MEDS: LOPERAMIDE 2 MG CAP PO SCH ×2 (09:35→21:33)
[2022-04-14] MEDS: POTASSIUM CHLORIDE ER 20 MEQ TAB.ER PO SCH ×3 (09:36→21:33)
[2022-04-14 09:50] LABS: Eosinophils # (M) 0.01 k/uL (0-0.7); Lymphocytes # (M) 0.21 k/uL (1.0-4.8); Metamyelocytes # (M) 0.01 k/uL (0); Metamyelocytes % 1 %; Myelocytes # (M) 0.01 k/uL (0); Myelocytes % 1 %; Neutrophils # (M) 0.65 k/uL (1.3-7.7); Neutrophils % (M) 65 %
[2022-04-14 09:52] LABS: Blast Cells # (M) 0.01 k/uL (0); Nucleated Red Blood Cells 3 /100 WBC (0-0); Total Cells Counted 100
--- NOTE | 2022-04-14 12:37 | P.PN ---
Subjective Progress Note Date: 04/14/22 Principal diagnosis: Lung cancer. Pulmonary consult dated 04/10/2022. 57-year-old male with a recent diagnosis of squamous cell lung, with metastasis. The patient underwent bronchoscopy by one of my partners, in January. It showed complete obstruction of the bronchus intermedius, and he was found to have metastasis to the brain, and has had radiation to the lung and brain, and chemotherapy. The patient came in with a number of complaints including cough, shortness of breath, right-sided chest discomfort, nausea, vomiting, diarrhea, and constipation. We were consulted primarily because of the abnormal chest x- ray, showing consolidation and mass in the right lung, with a right-sided pleural effusion. Previous notes, x-rays, CAT scans, procedure notes, were all reviewed. He is currently on 2 L nasal cannula, and saline at 20 mL an hour. In addition, he is on cefepime and vancomycin. His last chemotherapy was last Sunday. White count is 0.1, hemoglobin 8.6, hematocrit 27.8, and platelet count 260,000. PT is 14.7 with an INR 1. sodium 135, potassium 3.3, chlorides 103, CO2 20, anion gap 12, BUN 19, creatinine 0.79. Cortisol level is 40. Chest x-ray shows consolidation and infiltrate in the right lower lobe, with pleural effusion, which may be loculated. Progress note dated 04/11/2022. 57-year-old male seen in consultation yesterday. He has a history of metastatic squamous cell lung cancer. The patient had a right-sided pleural effusion. Ultrasound showed a very tiny right-sided effusion, not worked doing a thoracentesis on. The patient had recent chemotherapy, and it developed severe leukopenia/neutropenia. He is currently on vancomycin and cefepime. He is on 2 L of oxygen. He is getting saline at 20 mL an hour. He is stable from the pulmonary standpoint. Labs today include a white count of 0.1, hemoglobin 8, hematocrit 25.1, and a platelet count of 220,000. In essence, he has pancytopenia. Creatinine is 0.68. Progress note dated 04/12/2022. 57-year-old male seen in consultation 2 days ago. The patient was admitted with a diagnosis of metastatic squamous cell lung cancer, and chemotherapy-induced pancytopenia. He had a small right-sided pleural effusion, which is not worth doing a thoracentesis on. Currently on vancomycin and cefepime. His sputum was positive for Staphylococcus aureus. He's currently on 1 L of nasal oxygen, with saturations of 99%. The patient is also getting IV fluids at [facility]. White count is 0.1, hemoglobin 8.6, hematocrit 26.6, and platelet count 219,000. Sodium 136, potassium 2.4, chlorides 101, CO2 25, anion gap 10, BUN 11, creatinine 0.62. Cortisol level was 31. The Staphylococcus in the sputum, is oxacillin sensitive, and antibiotics could likely be de-escalated. Progress note dated 04/13/2022. 57-year-old male seen again in room 359. The patient's feeling much better. H e's currently on room air. He is getting saline at 20 mL an hour. The patient's white blood count is up 0.3 from 0.1. Hemoglobin 8.5, hematocrit 26.8, and platelet count 233,000. Sodium 136, potassium 2.5, chlorides 103, CO2 25, BUN 8, and creatinine 0.58. Sputum from April 10 shows oxacillin sensitive staph aureus. The patient remains on cefepime and vancomycin. He appears much more stable clinically today. Progress note dated 04/14/2022. 57-year-old male seen in room 359. The patient is hoping to be discharged home today. His white count is up to 1. He's feeling better. He's on room air. He is currently receiving Ancef, for his methicillin sensitive staph aureus infection. White count 1, hemoglobin 7.6, hematocrit 24, and platelet count 294,000. Sodium 137, potassium 3.3, chlorides 104, CO2 27, with a normal anion gap, BUN, and creatinine. Albumin is 1.9. Objective - Vital Signs Vital signs: Vital Signs Temp 98.5 F 04/14/22 08:00 Pulse 116 H 04/14/22 11:26 Resp 18 04/14/22 08:00 BP 96/56 04/14/22 08:00 Pulse Ox 94 L 04/14/22 08:00 FiO2 Intake & Output 04/13/22 04/14/22 04/14/22 18:59 06:59 18:59 Intake Total 886 10 Balance 886 10 Weight 65.771 kg Intake: IV 50 10 Invasive Line 1 10 ceFAZolin 2 gm In Sodium 50 Chloride 0.9% 50 ml @ 100 mls/hr IVPB Q8HR [facility] Rx# :[id number] Oral 836 Other: Voiding Method Toilet # Voids 2 1 - Exam No acute distress, oriented 3. No respiratory distress. Room air saturation 96%. HEENT examination is grossly unremarkable. Neck supple. Full range of motion. No adenopathy thyromegaly or neck vein distention. Cardiovascular examination reveals regular rhythm rate. S1-S2 normal. No S3 or S4. No discernible murmur noted. Heart rate 109 bpm. Lungs reveal clear breath sounds on the left. Severely diminished breath sounds on the right. No adventitious lung sounds. Abdomen soft bowel sounds are heard. No masses or tenderness. Extremities are intact. No cyanosis clubbing or edema. Skin is without rash or lesion. Neurologic examination is brief but nonfocal. - Labs CBC & Chem 7: 04/14/22 05:23 04/14/22 05:23 Labs: Abnormal Lab Results - Last 24 Hours (Table) 04/13/22 04/14/22 04/14/22 Range/Units 14:35 05:23 05:23 WBC 1.0 L* (3.8-10.6) k/uL RBC 2.78 L (4.30-5.90) m/uL Hgb 7.6 L (13.0-17.5) gm/dL Hct 24.0 L (39.0-53.0) % RDW 15.9 H (11.5-15.5) % Blast Cells % 1 H* % Neutrophils # (Manual) 0.65 L (1.3-7.7) k/uL Lymphocytes # (Manual) 0.21 L (1.0-4.8) k/uL Metamyelocytes # (Man) 0.01 H (0) k/uL Myelocytes # (Manual) 0.01 H (0) k/uL Blast Cells # (Man) 0.01 H (0) k/uL Nucleated RBCs 3 H (0-0) /100 WBC Potassium 3.2 L 3.3 L (3.5-5.1) mmol/L Glucose 113 H (74-99) mg/dL Calcium 7.1 L (8.4-10.2) mg/dL Magnesium 1.5 L (1.6-2.3) mg/dL AST 14 L (17-59) U/L Alkaline Phosphatase 163 H (38-126) U/L Total Protein 4.0 L (6.3-8.2) g/dL Albumin 1.9 L (3.5-5.0) g/dL Microbiology - Last 24 Hours (Table) 04/09/22 17:30 Blood Culture - Preliminary Blood No Growth after 96 hours 04/09/22 17:15 Blood Culture - Preliminary Blood No Growth after 96 hours Assessment and Plan Assessment: Severe neutropenia, secondary to recent chemotherapy. Neutropenic sepsis, with evidence of oxacillin sensitive Staphylococcus aureus, in his sputum, on Ancef. Chemotherapy-induced pancytopenia. Metastatic squamous cell carcinoma of the lung, with brain metastasis, status post cranial radiation, and radiation to the lung, and recent initiation of c hemotherapy. Consolidation and small pleural effusion, right lung. History of coronavirus infection, November 2020. History of COPD. History of hypertension. Previous history of tobacco use. Plan: Plan dated 04/10/2022. Currently, the patient's on vancomycin and cefepime. The patient is also getting Zarxio, because of severe leukopenia/neutropenia. We will order an ultrasound of the right chest. If there is free-flowing fluid, we may recommend thoracentesis. Overall prognosis remains guarded. The patient recently was given chemotherapy, last Sunday. Many of his complaints related to the chemotherapy, including his GI issues, and his blood counts. Follow. Prognosis is guarded. No additional recommendations are made. Plan dated 04/11/2022. The results of the ultrasound which shared with the patient. He is not a candidate for thoracentesis. The patient's currently on 2 L of oxygen. His white count was only 0.1. He is on vancomycin and cefepime for profound neutropenia/leukopenia. No additional recommendations are made at this time. We will continue to follow make recommendations along the way. Labs, x-rays, and medications are all reviewed. Plan dated 04/12/2022. The patient is doing a bit better today. The patient's sputum was positive for oxacillin sensitive Staphylococcus aureus. Antibiotics can be altered by infectious diseases. Clinically, the patient appears to be stable both from the respiratory standpoint, and hemodynamically. Labs, x-rays, and medications are reviewed. He remains on vancomycin and cefepime for the time being. We will continue to follow and make recommendations along the way. Prognosis is guarded. Plan dated 04/13/2022. The patient's doing well. He is on room air. He continues on antibiotics. The sputum was positive for oxacillin sensitive staph aureus. He does remain on vancomycin and cefepime. Infectious disease doctor will likely alter his antibiotics. Additional recommendations and suggestions are forthcoming. Prognosis is certainly guarded. We will continue to follow make recommendations along the way. Labs, x-rays, and medications are all reviewed. Plan dated 04/14/2022. The patient is now on Ancef. His staff is oxacillin sensitive. He is on room air. Clinically, the patient's feeling much better. Possible discharge today. Labs, x-rays, and medications are reviewed. Prognosis is guarded. Additional recommendations and suggestions are forthcoming. Time with Patient: Less than 30
--- NOTE | 2022-04-14 15:37 | P.PN ---
Subjective Progress Note Date: 04/13/22 Principal diagnosis: Pneumonia Patient is a 57-year old male with a past medical history significant for hypertension metastatic squamous cell carcinoma, presented to hospital with right-sided chest pain did have a productive cough has been diagnosed with a pneumonia. On today's evaluation that is 04/13/2022, the patient remains to be afebrile, the patient is breathing comfortably on room air, the patient right-sided chest pain has decreased in intensity, the patient cough has decreased in intensity less productive , the patient denies any nausea vomiting abdominal pain or diarrhea Objective - Vital Signs Vital signs: Vital Signs Temp 98.7 F 04/13/22 08:21 Pulse 128 H 04/13/22 12:17 Resp 18 04/13/22 12:00 BP 106/66 04/13/22 12:00 Pulse Ox 98 04/13/22 12:00 FiO2 Intake & Output 04/12/22 04/13/22 04/13/22 18:59 06:59 18:59 Intake Total 598 490 210 Balance 598 490 210 Intake: IV 10 10 Invasive Line 1 10 10 Oral 598 480 200 Other: Voiding Method Toilet # Voids 3 2 - Exam GENERAL DESCRIPTION: Middle-age male lying in bed in no distress LUNGS: Unlabored breathing. Decreased breath sound at the base HEART: S1, S2, regular rate and rhythm. No loud murmur ABDOMEN: Soft, no tenderness , guarding or rigidity, no organomegaly EXTREMITIES: No edema of feet. - Labs CBC & Chem 7: 04/14/22 05:23 04/14/22 05:23 Labs: Abnormal Lab Results - Last 24 Hours (Table) 04/12/22 04/12/22 04/13/22 Range/Units 08:55 16:31 08:01 WBC 0.2 L* 0.3 L* (3.8-10.6) k/uL RBC 3.11 L (4.30-5.90) m/uL Hgb 8.5 L (13.0-17.5) gm/dL Hct 26.8 L (39.0-53.0) % Plt Count 133 L (150-450) k/uL Sodium (137-145) mmol/L Potassium 2.6 L* (3.5-5.1) mmol/L BUN (9-20) mg/dL Creatinine (0.66-1.25) mg/dL Glucose (74-99) mg/dL Calcium (8.4-10.2) mg/dL 04/13/22 Range/Units 08:01 WBC (3.8-10.6) k/uL RBC (4.30-5.90) m/uL Hgb (13.0-17.5) gm/dL Hct (39.0-53.0) % Plt Count (150-450) k/uL Sodium 136 L (137-145) mmol/L Potassium 2.5 L* (3.5-5.1) mmol/L BUN 8 L (9-20) mg/dL Creatinine 0.58 L (0.66-1.25) mg/dL Glucose 103 H (74-99) mg/dL Calcium 7.0 L (8.4-10.2) mg/dL Microbiology - Last 24 Hours (Table) 04/09/22 17:15 Blood Culture - Preliminary Blood No Growth after 72 hours 04/09/22 17:30 Blood Culture - Preliminary Blood No Growth after 72 hours 04/10/22 09:48 Gram Stain - Final Sputum Sputum Culture - Final Staphylococcus aureus Assessment and Plan (1) Pneumonia Current Visit: Yes Status: Acute Code(s): J18.9 - PNEUMONIA, UNSPECIFIED ORGANISM SNOMED Code(s): 576462704 Plan: 1patient presented to hospital with fever right-sided chest pain cough with evidence of pneumonia in this patient with underlying metastatic lung cancer on chemotherapy. 2blood culture has been negative sputum cultures has been finalized MSSA 3we will discontinue cefepime and vancomycin start the patient on cefazolin 2 g every 8 hours Time with Patient: Less than 30
--- NOTE | 2022-04-14 15:38 | P.PN ---
Subjective Progress Note Date: 04/14/22 Principal diagnosis: Pneumonia Patient is a 57-year old male with a past medical history significant for hypertension metastatic squamous cell carcinoma, presented to hospital with right-sided chest pain did have a productive cough has been diagnosed with a pneumonia. On today's evaluation that is 04/14/2022, the patient did spike a low-grade fever last evening however the patient is afebrile this morning, the patient is breathing comfortably on room air, the patient denies right-sided chest pain , the patient cough has decreased in intensity less productive , the patient denies any nausea vomiting abdominal pain or diarrhea Objective - Vital Signs Vital signs: Vital Signs Temp 98.5 F 04/14/22 08:00 Pulse 116 H 04/14/22 08:00 Resp 18 04/14/22 08:00 BP 96/56 04/14/22 08:00 Pulse Ox 94 L 04/14/22 08:00 FiO2 Intake & Output 04/13/22 04/14/22 04/14/22 18:59 06:59 18:59 Intake Total 886 10 Balance 886 10 Weight 65.771 kg Intake: IV 50 10 Invasive Line 1 10 ceFAZolin 2 gm In Sodium 50 Chloride 0.9% 50 ml @ 100 mls/hr IVPB Q8HR [facility] Rx# :[id number] Oral 836 Other: Voiding Method Toilet # Voids 2 - Exam GENERAL DESCRIPTION: Middle-age male lying in bed in no distress LUNGS: Unlabored breathing. Decreased breath sound at the base HEART: S1, S2, regular rate and rhythm. No loud murmur ABDOMEN: Soft, no tenderness , guarding or rigidity, no organomegaly EXTREMITIES: No edema of feet. - Labs CBC & Chem 7: 04/14/22 05:23 04/14/22 05:23 Labs: Abnormal Lab Results - Last 24 Hours (Table) 04/13/22 04/14/22 04/14/22 Range/Units 14:35 05:23 05:23 WBC 1.0 L* (3.8-10.6) k/uL RBC 2.78 L (4.30-5.90) m/uL Hgb 7.6 L (13.0-17.5) gm/dL Hct 24.0 L (39.0-53.0) % RDW 15.9 H (11.5-15.5) % Blast Cells % 1 H* % Neutrophils # (Manual) 0.65 L (1.3-7.7) k/uL Lymphocytes # (Manual) 0.21 L (1.0-4.8) k/uL Metamyelocytes # (Man) 0.01 H (0) k/uL Myelocytes # (Manual) 0.01 H (0) k/uL Blast Cells # (Man) 0.01 H (0) k/uL Nucleated RBCs 3 H (0-0) /100 WBC Potassium 3.2 L 3.3 L (3.5-5.1) mmol/L Glucose 113 H (74-99) mg/dL Calcium 7.1 L (8.4-10.2) mg/dL Magnesium 1.5 L (1.6-2.3) mg/dL AST 14 L (17-59) U/L Alkaline Phosphatase 163 H (38-126) U/L Total Protein 4.0 L (6.3-8.2) g/dL Albumin 1.9 L (3.5-5.0) g/dL Microbiology - Last 24 Hours (Table) 04/09/22 17:30 Blood Culture - Preliminary Blood No Growth after 96 hours 04/09/22 17:15 Blood Culture - Preliminary Blood No Growth after 96 hours Assessment and Plan (1) Pneumonia Current Visit: Yes Status: Acute Code(s): J18.9 - PNEUMONIA, UNSPECIFIED ORGANISM SNOMED Code(s): 775148156 Plan: 1patient presented to hospital with fever right-sided chest pain cough with evidence of pneumonia in this patient with underlying metastatic lung cancer on chemotherapy. 2blood culture has been negative sputum cultures has been finalized MSSA 3patient to continue with cefazolin 2 g every 8 hours if any further fever to reculture and repeat his chest x-ray otherwise plan to finish therapy with oral Keflex Time with Patient: Less than 30
[2022-04-14] MEDS: FILGRASTIM-SNDZ 480 MCG/0.8 ML SYRINGE SQ SCH (15:44)
--- NOTE | 2022-04-14 20:43 | P.PN ---
Subjective Progress Note Date: 04/14/22 Diarrhea improving, still weak and fatigued, Pancytopenia and neutropenia persists, granix continues. Objective - Vital Signs Vital signs: Vital Signs Temp 98.5 F 04/14/22 08:00 Pulse 116 H 04/14/22 11:26 Resp 18 04/14/22 08:00 BP 96/56 04/14/22 08:00 Pulse Ox 94 L 04/14/22 08:00 FiO2 Intake & Output 04/13/22 04/14/22 04/14/22 18:59 06:59 18:59 Intake Total 886 10 Balance 886 10 Weight 65.771 kg Intake: IV 50 10 Invasive Line 1 10 ceFAZolin 2 gm In Sodium 50 Chloride 0.9% 50 ml @ 100 mls/hr IVPB Q8HR [facility] Rx# :[id number] Oral 836 Other: Voiding Method Toilet # Voids 2 1 - Exam - Constitutional General appearance: Present: cooperative, no acute distress, thin - EENT Eyes: Present: anicteric sclerae, EOMI ENT: Present: hearing grossly normal - Respiratory Respiratory: bilateral: rales (bases) - Cardiovascular Heart sounds: normal: S1, S2 Abnormal Heart Sounds: Absent: systolic murmur, diastolic murmur, rub, S3 Gallop, S4 Gallop, click, other - Peripheral edema leg Peripheral Edema: bilateral: None - Integumentary Integumentary: Present: normal - Neurologic Neurologic: Present: CNII-XII intact - Musculoskeletal Musculoskeletal: Present: generalized weakness, strength equal bilaterally - Psychiatric Psychiatric: Present: A&O x's 3, appropriate affect, intact judgment & insight - Labs CBC & Chem 7: 04/14/22 05:23 04/14/22 05:23 Labs: Abnormal Lab Results - Last 24 Hours (Table) 04/13/22 04/14/22 04/14/22 Range/Units 14:35 05:23 05:23 WBC 1.0 L* (3.8-10.6) k/uL RBC 2.78 L (4.30-5.90) m/uL Hgb 7.6 L (13.0-17.5) gm/dL Hct 24.0 L (39.0-53.0) % RDW 15.9 H (11.5-15.5) % Blast Cells % 1 H* % Neutrophils # (Manual) 0.65 L (1.3-7.7) k/uL Lymphocytes # (Manual) 0.21 L (1.0-4.8) k/uL Metamyelocytes # (Man) 0.01 H (0) k/uL Myelocytes # (Manual) 0.01 H (0) k/uL Blast Cells # (Man) 0.01 H (0) k/uL Nucleated RBCs 3 H (0-0) /100 WBC Potassium 3.2 L 3.3 L (3.5-5.1) mmol/L Glucose 113 H (74-99) mg/dL Calcium 7.1 L (8.4-10.2) mg/dL Magnesium 1.5 L (1.6-2.3) mg/dL AST 14 L (17-59) U/L Alkaline Phosphatase 163 H (38-126) U/L Total Protein 4.0 L (6.3-8.2) g/dL Albumin 1.9 L (3.5-5.0) g/dL Microbiology - Last 24 Hours (Table) 04/09/22 17:30 Blood Culture - Preliminary Blood No Growth after 96 hours 04/09/22 17:15 Blood Culture - Preliminary Blood No Growth after 96 hours Assessment and Plan Plan: Assessment and Plan (1) Nausea and vomiting Current Visit: Yes Status: Acute Priority: High Code(s): R11.2 - NAUSEA W ITH VOMITING, UNSPECIFIED SNOMED Code(s): 77439486 (2) Dehydration Current Visit: Yes Status: Acute Priority: High Code(s): E86.0 - DEHYDRATION SNOMED Code(s): 01669221 (3) Diarrhea Current Visit: Yes Status: Acute Priority: High Code(s): R19.7 - DIARRHEA, UNSPECIFIED SNOMED Code(s): 74824905 (4) Leukopenia Current Visit: Yes Status: Acute Priority: High Code(s): D72.819 - DECREASED WHITE BLOOD CELL COUNT, UNSPECIFIED SNOMED Code(s): 37126601 (5) Metastatic lung cancer (metastasis from lung to other site) Current Visit: Yes Status: Acute Priority: High Code(s): C34.90 - MALIGNANT NEOPLASM OF UNSP PART OF UNSP BRONCHUS OR LUNG SNOMED Code(s): 78174639 Plan: Patient cont on IV fluids for dehydration, 2/2 chemo SE. He is needing K+ after diarrhea. On K+ replacement protocol. Cont improvement. Patient is on cefepime and vancomycin for febrile neutropenia. Sputum + staph au. Fever pattern is improved. Stool culture neg for c-diff. Sched imodium, decrease to BID and PRN. Questran if diarrhea returns G-CSF to continue WBC up to 1
[2022-04-15] MEDS: HEPARIN SODIUM,PORCINE/PF 5,000 UNIT/0.5 ML SYRINGE SQ SCH ×2 (00:15→09:12)
--- NOTE | 2022-04-15 04:12 | PN ---
PROGRESS NOTE SUBJECTIVE: This is a 57-year-old gentleman admitted with pneumonia and fever, is being closely monitored. The patient is on IV antibiotics. The patient also has history of malignancy as well. The patient on broad spectrum IV antibiotics. The patient had a fever last night. The sputum culture showing MSSA. No chest pain. No palpitation. PHYSICAL EXAMINATION: VITAL SIGNS: Pulse is 128, blood pressure 94/58, respirations 18. HEENT: Conjunctivae normal. NECK: No JVD. CARDIOVASCULAR: S1, S2 normal. RESPIRATION: Breath sounds diminished at the bases. A few scattered rhonchi and crackles. ABDOMEN: Soft, nontender. LEGS: No edema. NERVOUS SYSTEM: No focal deficits. LABS: Neutrophils are 1. ASSESSMENT: 1. Severe neutropenic sepsis with continued fever. 2. Methicillin-sensitive Staphylococcus aureus from the sputum. 3. Chronic lymphocytic leukemia, on chemotherapy. 4. Pneumonia. 5. Diarrhea, possible antibiotic associated. 6. Hypertension. 7. Multiple medical issues. RECOMMENDATIONS: Recommend to continue current management and symptomatic treatment. Continue with antibiotics. Closely follow with multiple consultants. Guarded prognosis. Further recommendations to follow. Replace potassium. MMODL / IJN: [id number] /
--- NOTE | 2022-04-15 07:13 | XR ---
EXAMINATION TYPE: XR chest 2V DATE OF EXAM: 04/15/2022 6:41 AM COMPARISON: Chest radiographs from 04/09/2022 TECHNIQUE: XR chest 2V Frontal and lateral views of the chest. CLINICAL INDICATION:Male, 57 years old with history of Pneumonia; FINDINGS: Lungs/Pleura: Large right pleural effusion with associated atelectasis and right upper lobe airspace opacities. Post chronic interstitial lung changes present. Pulmonary vascularity: Unremarkable. Heart/mediastinum: Cardiomediastinal silhouette is partially obscured due to overlying and adjacent o pacities. Musculoskeletal: No acute osseous pathology. IMPRESSION: Similar appearance of moderate right pleural effusion with right upper lobe airspace opacities.
[2022-04-15] MEDS: IPRATROPIUM-ALBUTEROL 3 ML NEB INHALATION SCH ×2 (07:21→12:14)
[2022-04-15] MEDS: LACTOBACILLUS ACIDOPH & BULGAR 1 EACH PACKET PO SCH (07:22)
[2022-04-15] MEDS: METOPROLOL TARTRATE 12.5 MG TAB PO SCH ×2 (07:23→09:11)
[2022-04-15] MEDS: SALT AND SODA MOUTHWASH 1,000 ML PO SCH ×3 (07:26→12:19)
[2022-04-15 09:09] LABS: Anisocytosis Slight; HGB 8.6 gm/dL (13.0-17.5); Hypochromasia Slight; MCH 27.5 pg (25.0-35.0); MCHC 31.8 g/dL (31.0-37.0); MCV 86.5 fL (80.0-100.0); Mean Platelet Volume 8.9; Platelet Count 262 k/uL (150-450); RBC 3.12 m/uL (4.30-5.90); RDW 16.5 % (11.5-15.5)
[2022-04-15] MEDS: POTASSIUM CHLORIDE ER 20 MEQ TAB.ER PO SCH (09:11)
[2022-04-15] MEDS: LOPERAMIDE 2 MG CAP PO SCH (09:11)
[2022-04-15 10:21] LABS: ALT 12 U/L (4-49); AST 20 U/L (17-59); African American GFR (CKD) >90 (>60 ml/min/1.73 sqM); Alkaline Phosphatase 157 U/L (38-126); Anion Gap 9 mmol/L; Blood Urea Nitrogen 13 mg/dL (9-20); Calcium 7.2 mg/dL (8.4-10.2); Carbon Dioxide 28 mmol/L (22-30); Chloride 99 mmol/L (98-107); Glucose 120 mg/dL (74-99); Magnesium 1.6 mg/dL (1.6-2.3); Non-African American GFR(CKD) >90 (>60 ml/min/1.73 sqM); Potassium 3.6 mmol/L (3.5-5.1); Sodium 136 mmol/L (137-145); Total Bilirubin 0.6 mg/dL (0.2-1.3); Total Protein 4.3 g/dL (6.3-8.2)
[2022-04-15 10:33] LABS: C Reactive Protein 26.9 mg/dL (<1.0)
--- NOTE | 2022-04-15 11:22 | P.PN ---
Subjective Progress Note Date: 04/15/22 Principal diagnosis: Lung cancer. Pulmonary consult dated 04/10/2022. 57-year-old male with a recent diagnosis of squamous cell lung, with metastasis. The patient underwent bronchoscopy by one of my partners, in January. It showed complete obstruction of the bronchus intermedius, and he was found to have metastasis to the brain, and has had radiation to the lung and brain, and chemotherapy. The patient came in with a number of complaints including cough, shortness of breath, right-sided chest discomfort, nausea, vomiting, diarrhea, and constipation. We were consulted primarily because of the abnormal chest x- ray, showing consolidation and mass in the right lung, with a right-sided pleural effusion. Previous notes, x-rays, CAT scans, procedure notes, were all reviewed. He is currently on 2 L nasal cannula, and saline at 20 mL an hour. In addition, he is on cefepime and vancomycin. His last chemotherapy was last Sunday. White count is 0.1, hemoglobin 8.6, hematocrit 27.8, and platelet count 260,000. PT is 14.7 with an INR 1. sodium 135, potassium 3.3, chlorides 103, CO2 20, anion gap 12, BUN 19, creatinine 0.79. Cortisol level is 40. Chest x-ray shows consolidation and infiltrate in the right lower lobe, with pleural effusion, which may be loculated. Progress note dated 04/11/2022. 57-year-old male seen in consultation yesterday. He has a history of metastatic squamous cell lung cancer. The patient had a right-sided pleural effusion. Ultrasound showed a very tiny right-sided effusion, not worked doing a thoracentesis on. The patient had recent chemotherapy, and it developed severe leukopenia/neutropenia. He is currently on vancomycin and cefepime. He is on 2 L of oxygen. He is getting saline at 20 mL an hour. He is stable from the pulmonary standpoint. Labs today include a white count of 0.1, hemoglobin 8, hematocrit 25.1, and a platelet count of 220,000. In essence, he has pancytopenia. Creatinine is 0.68. Progress note dated 04/12/2022. 57-year-old male seen in consultation 2 days ago. The patient was admitted with a diagnosis of metastatic squamous cell lung cancer, and chemotherapy-induced pancytopenia. He had a small right-sided pleural effusion, which is not worth doing a thoracentesis on. Currently on vancomycin and cefepime. His sputum was positive for Staphylococcus aureus. He's currently on 1 L of nasal oxygen, with saturations of 99%. The patient is also getting IV fluids at O. White count is 0.1, hemoglobin 8.6, hematocrit 26.6, and platelet count 219,000. Sodium 136, potassium 2.4, chlorides 101, CO2 25, anion gap 10, BUN 11, creatinine 0.62. Cortisol level was 31. The Staphylococcus in the sputum, is oxacillin sensitive, and antibiotics could likely be de-escalated. Progress note dated 04/13/2022. 57-year-old male seen again in room 359. The patient's feeling much better. H e's currently on room air. He is getting saline at 20 mL an hour. The patient's white blood count is up 0.3 from 0.1. Hemoglobin 8.5, hematocrit 26.8, and platelet count 233,000. Sodium 136, potassium 2.5, chlorides 103, CO2 25, BUN 8, and creatinine 0.58. Sputum from April 10 shows oxacillin sensitive staph aureus. The patient remains on cefepime and vancomycin. He appears much more stable clinically today. Progress note dated 04/14/2022. 57-year-old male seen in room 359. The patient is hoping to be discharged home today. His white count is up to 1. He's feeling better. He's on room air. He is currently receiving Ancef, for his methicillin sensitive staph aureus infection. White count 1, hemoglobin 7.6, hematocrit 24, and platelet count 294,000. Sodium 137, potassium 3.3, chlorides 104, CO2 27, with a normal anion gap, BUN, and creatinine. Albumin is 1.9. Progress note dated 04/15/2022. 57-year-old male seen in room 359. The patient's currently on room air. Curr ent white count is increased to 4.6, from 1. Hemoglobin 8.6, hematocrit 27, and platelet count is 262,000. Clinically, he is doing well. Sodium 136, potassium 3.6, chlorides 99, CO2 28, BUN 13, and creatinine 0.7. Sputum was positive for staph aureus, which is oxacillin sensitive. The patient's hoping to be discharged soon. Today's chest x-ray is essentially unchanged. Objective - Vital Signs Vital signs: Vital Signs Temp 98.7 F 04/15/22 04:00 Pulse 122 H 04/15/22 07:33 Resp 18 04/15/22 04:00 BP 111/67 04/15/22 04:00 Pulse Ox 90 L 04/15/22 04:00 FiO2 Intake & Output 04/14/22 04/15/22 04/15/22 18:59 06:59 18:59 Output Total 0 Balance 0 Output: Urine 0 Other: Voiding Method Toilet # Voids 1 1 - Exam No acute distress, oriented 3. No respiratory distress. Room air saturation 90 %. HEENT examination is grossly unremarkable. Neck supple. Full range of motion. No adenopathy thyromegaly or neck vein distention. Cardiovascular examination reveals regular rhythm rate. S1-S2 normal. No S3 or S4. No discernible murmur noted. Heart rate 111 bpm. Lungs reveal clear breath sounds on the left. Severely diminished breath sounds on the right. No adventitious lung sounds. Abdomen soft bowel sounds are heard. No masses or tenderness. Extremities are intact. No cyanosis clubbing or edema. Skin is without rash or lesion. Neurologic examination is brief but nonfocal. - Labs CBC & Chem 7: 04/15/22 08:41 04/15/22 08:41 Labs: Abnormal Lab Results - Last 24 Hours (Table) 04/15/22 04/15/22 Range/Units 08:41 08:41 RBC 3.12 L (4.30-5.90) m/uL Hgb 8.6 L (13.0-17.5) gm/dL Hct 27.0 L (39.0-53.0) % RDW 16.5 H (11.5-15.5) % Sodium 136 L (137-145) mmol/L Glucose 120 H (74-99) mg/dL Calcium 7.2 L (8.4-10.2) mg/dL Alkaline Phosphatase 157 H (38-126) U/L C-Reactive Protein 26.9 H (<1.0) mg/dL Total Protein 4.3 L (6.3-8.2) g/dL Albumin 2.0 L (3.5-5.0) g/dL Microbiology - Last 24 Hours (Table) 04/13/22 18:08 Blood Culture - Preliminary Blood No Growth after 24 hours 04/09/22 17:30 Blood Culture - Preliminary Blood No Growth after 120 hours 04/09/22 17:15 Blood Culture - Preliminary Blood No Growth after 120 hours Assessment and Plan Assessment: Severe neutropenia, secondary to recent chemotherapy, recovered. Neutropenic sepsis, with evidence of oxacillin sensitive Staphylococcus aureus, in his sputum, on Ancef. Chemotherapy-induced pancytopenia. Metastatic squamous cell carcinoma of the lung, with brain metastasis, status post cranial radiation, and radiation to the lung, and recent initiation of idalia motherapy. Consolidation and small pleural effusion, right lung. History of coronavirus infection, November 2020. History of COPD. History of hypertension. Previous history of tobacco use. Plan: Plan dated 04/10/2022. Currently, the patient's on vancomycin and cefepime. The patient is also getting Zarxio, because of severe leukopenia/neutropenia. We will order an ultrasound of the right chest. If there is free-flowing fluid, we may recommend thoracentesis. Overall prognosis remains guarded. The patient recently was given chemotherapy, last Sunday. Many of his complaints related to the chemotherapy, including his GI issues, and his blood counts. Follow. Prognosis is guarded. No additional recommendations are made. Plan dated 04/11/2022. The results of the ultrasound which shared with the patient. He is not a candidate for thoracentesis. The patient's currently on 2 L of oxygen. His white count was only 0.1. He is on vancomycin and cefepime for profound neutropenia/leukopenia. No additional recommendations are made at this time. We will continue to follow make recommendations along the way. Labs, x-rays, and medications are all reviewed. Plan dated 04/12/2022. The patient is doing a bit better today. The patient's sputum was positive for oxacillin sensitive Staphylococcus aureus. Antibiotics can be altered by infectious diseases. Clinically, the patient appears to be stable both from the respiratory standpoint, and hemodynamically. Labs, x-rays, and medications are reviewed. He remains on vancomycin and cefepime for the time being. We will continue to follow and make recommendations along the way. Prognosis is guarded. Plan dated 04/13/2022. The patient's doing well. He is on room air. He continues on antibiotics. The sputum was positive for oxacillin sensitive staph aureus. He does remain on vancomycin and cefepime. Infectious disease doctor will likely alter his antibiotics. Additional recommendations and suggestions are forthcoming. Prognosis is certainly guarded. We will continue to follow make recommendations along the way. Labs, x-rays, and medications are all reviewed. Plan dated 04/14/2022. The patient is now on Ancef. His staff is oxacillin sensitive. He is on room air. Clinically, the patient's feeling much better. Possible discharge today. Labs, x-rays, and medications are reviewed. Prognosis is guarded. Additional recommendations and suggestions are forthcoming. Plan dated 04/15/2022. The patient is doing much better. His white count has nicely recovered. The patient is being considered for possible discharge. We will have to decide an oral antibiotic on discharge. We will leave that to infectious diseases. Labs, x-rays, and medications are reviewed. Prognosis is guarded. He will follow-up with my partner post discharge. Time with Patient: Less than 30
[2022-04-15 12:37] VITALS: BP 98/58; RESP 16; TEMP 98.5
[2022-04-15 14:45] LABS: Band Neutrophils % 3 %; Metamyelocytes # (M) 0.09 k/uL (0); Metamyelocytes % 2 %; Myelocytes # (M) 0.18 k/uL (0); Myelocytes % 4 %; Neutrophils % (M) 69 %
[2022-04-15 14:46] LABS: Blast Cells # (M) 0.09 k/uL (0); Lymphocytes # (M) 0.57 k/uL (1.0-4.8); Monocytes # (M) 0.44 k/uL (0-1.0); Nucleated Red Blood Cells 5 /100 WBC (0-0); Total Cells Counted 200; WBC 4.4 k/uL (3.8-10.6)
[2022-04-15 14:50] LABS: Dohle Bodies Present; Polychromasia Present
[2022-04-15] MEDS: FILGRASTIM-SNDZ 480 MCG/0.8 ML SYRINGE SQ SCH (15:02)
[2022-04-15 15:28] VITALS: PULSE 119
--- NOTE | 2022-04-17 10:33 | DS ---
DISCHARGE SUMMARY FINAL DIAGNOSES: 1. Severe neutropenic sepsis with continued fever. 2. MSSA from the sputum. 3. Lung cancer, on chemotherapy. 4. History of pneumonia. 5. Diarrhea. 6. Multiple medical issues. DISCHARGE DISPOSITION: Discharged the patient HISTORY OF PRESENT ILLNESS: This 57-year-old gentleman was admitted with multiple medical issues and possible pneumonia, is treated with IV antibiotics. Patient's recent cultures were showing MSSA in the sputum. PHYSICAL EXAMINATION: VITAL SIGNS: Stable. CARDIOVASCULAR: S1 and S2 muffled. ABDOMEN: Soft. NERVOUS SYSTEM: No focal deficits. The patient will be discharged in stable condition. Guarded prognosis. The patient has recommended a course of antibiotic prophylaxis for 7 days and bronchodilators. Continue the rest of medications and follow up with Dr. Mcclure and Hematology/Oncology infectious disease, Dr. Hager as recommended. MMRICHL / REECEN: [id number] / MTDD
--- NOTE | 2022-04-17 14:54 | CDI ---
Documentation Clarification Form Date: 04/17/2022 02:29:53 PM From: Selina De Luna Phone: Admit Date: 04/09/2022 05:46:00 PM Patient Name: Taz Thomas Visit Number: [id number] Discharge Date: 04/15/2022 03:21:00 PM ATTENTION: The Clinical Documentation Specialists (CDI) and [facility] Coding Staff appreciate your assistance in clarifying documentation. Please respond to the clarification below the line at the bottom and electronically sign. The CDI & [facility] Coding staff will review the response and follow-up if needed. Please note: Queries are made part of the Legal Health Record. If you have any questions, please contact the author of this message via ITS. Dr. Massimo Dubon Per the ED Note, patient appears cachectic. Additionally, per Consult Note 04/10, patient has had a 15 pound weight loss in the last 6 months and complaints of Nausea and vomiting. Based on this information and the findings below, is there an additional diagnosis that is clinically appropriate for this patient? History/Risk Factors: 57yo M, MSSA Sepsis w shock, Emphysema w PNA, hypoxemia, pl effusion, Rt lung Cx w brain mets, neutropenia d/t sp radiation, Hx COVID Clinical Indicators: Since treatment last week, patient had progressive complaints of constipation, this was treated ultimately, leading to diarrhea. Patient was also having pain with his cough so, he refused cough. He began experiencing nausea and vomiting. He was no longer to tolerate oral intake. He became weak. Current BMI: 20.8 Weight Loss: 15 pound weight loss in the last 6 months; average body habitus, cooperative, no acute distress Treatment: Patient is receiving IV fluids for dehydration, 2/2 chemo SE. Creatinine improved today. Patient is on cefepime and vancomycin for febrile neutropenia. Pancultures have been ordered. Stool culture requested. Questran can be initiated. If stool studies are negative and diarrhea persists despite Questran administration, may have to consider immunotherapy-induced colitis. Supportive medications for patient's symptoms. Is there an additional diagnosis that is clinically appropriate for this patient? [ ] Mild Protein-Calorie Malnutrition [ ] Moderate Protein-Calorie Malnutrition [x ] Severe Protein-Calorie Malnutrition [ ] Other condition, please specify [ ] Unable to Determine (Template Last Revised: October 2020) MTDD
--- NOTE | 2022-04-18 10:48 | CDI ---
Documentation Clarification Form Date: 04/18/2022 10:40:05 AM From: Selina De Luna Phone: Admit Date: 04/09/2022 05:46:00 PM Patient Name: Taz Thomas Visit Number: [id number] Discharge Date: 04/15/2022 03:21:00 PM ATTENTION: The Clinical Documentation Specialists (CDI) and [facility] Coding Staff appreciate your assistance in clarifying documentation. Please respond to the clarification below the line at the bottom and electronically sign. The CDI & [facility] Coding staff will review the response and follow-up if needed. Please note: Queries are made part of the Legal Health Record. If you have any questions, please contact the author of this message via ITS. Dr. Massimo Dubon Chronic lymphocytic leukemia, on chemotherapy is documented per Dr Antwan Brady 04/14/22 Progress Note and may lack sufficient clinical evidence/support in the medical record. Additional clarification is requested. History/Risk Factors: 57yo M, MSSA Sepsis w shock, Emphysema w PNA, hypoxemia, pl effusion, Rt lung Cx w brain mets, neutropenia d/t sp radiation, Hx COVID Clinical Indicators: severe neutropenia, secondary to recent chemotherapy. Chemotherapy-induced pancytopenia. Metastatic squamous cell carcinoma of the lung, with brain metastasis, status post cranial radiation, and radiation to the lung, and recent initiation of chemotherapy. Treatment: Recommend to continue current management and symptomatic treatment. Continue with antibiotics. Closely follow with multiple consultants. Guarded prognosis. Further recommendations to follow. Replace potassium. Please clarify if chronic lymphocytic leukemia is a valid diagnosis? [x ] Yes, Chronic lymphocytic leukemia is present as evidence by (additional clinical support): [ ] No, Chronic lymphocytic leukemia is ruled out [ ] Other (please specify diagnosis) [ ] Unable to determine (Template Last Revised: October 2020) MTDD
--- NOTE | 2022-04-21 16:48 | P.PN ---
Subjective Progress Note Date: 04/15/22 Principal diagnosis: Pneumonia Patient is a 57-year old male with a past medical history significant for hypertension metastatic squamous cell carcinoma, presented to hospital with right-sided chest pain did have a productive cough has been diagnosed with a pneumonia. On today's evaluation that is 04/15/2022, the patient is afebrile today, the patient is breathing comfortably on room air, the patient denies right-sided chest pain , the patient cough has decreased in intensity and not bringing up any sputum , the patient denies any nausea vomiting abdominal pain or diarrhea Objective - Vital Signs Vital signs: Vital Signs Temp 98.5 F 04/15/22 12:00 Pulse 119 H 04/15/22 14:00 Resp 16 04/15/22 14:00 BP 98/58 04/15/22 12:00 Pulse Ox 93 L 04/15/22 12:00 FiO2 Intake & Output 04/14/22 04/15/22 04/15/22 18:59 06:59 18:59 Output Total 0 Balance 0 Output: Urine 0 Other: Voiding Method Toilet Toilet # Voids 1 1 1 - Exam GENERAL DESCRIPTION: Middle-age male lying in bed in no distress LUNGS: Unlabored breathing. Decreased breath sound at the base HEART: S1, S2, regular rate and rhythm. No loud murmur ABDOMEN: Soft, no tenderness , guarding or rigidity, no organomegaly EXTREMITIES: No edema of feet. - Labs CBC & Chem 7: 04/15/22 08:41 04/15/22 08:41 Labs: Abnormal Lab Results - Last 24 Hours (Table) 04/15/22 04/15/22 04/15/22 Range/Units 08:41 08:41 08:41 RBC 3.12 L (4.30-5.90) m/uL Hgb 8.6 L (13.0-17.5) gm/dL Hct 27.0 L (39.0-53.0) % RDW 16.5 H (11.5-15.5) % Blast Cells % 2 H* % Lymphocytes # (Manual) 0.57 L (1.0-4.8) k/uL Metamyelocytes # (Man) 0.09 H (0) k/uL Myelocytes # (Manual) 0.18 H (0) k/uL Blast Cells # (Man) 0.09 H (0) k/uL Nucleated RBCs 5 H (0-0) /100 WBC Sodium 136 L (137-145) mmol/L Glucose 120 H (74-99) mg/dL Calcium 7.2 L (8.4-10.2) mg/dL Alkaline Phosphatase 157 H (38-126) U/L C-Reactive Protein 26.9 H (<1.0) mg/dL Total Protein 4.3 L (6.3-8.2) g/dL Albumin 2.0 L (3.5-5.0) g/dL Procalcitonin 5.48 H (0.02-0.09) ng/mL Microbiology - Last 24 Hours (Table) 04/13/22 18:08 Blood Culture - Preliminary Blood No Growth after 24 hours 04/09/22 17:30 Blood Culture - Preliminary Blood No Growth after 120 hours 04/09/22 17:15 Blood Culture - Preliminary Blood No Growth after 120 hours Assessment and Plan (1) Pneumonia Status: Acute Code(s): J18.9 - PNEUMONIA, UNSPECIFIED ORGANISM SNOMED Code(s): 405692348 Plan: 1patient presented to hospital with fever right-sided chest pain cough with evidence of pneumonia in this patient with underlying metastatic lung cancer on chemotherapy. 2blood culture has been negative sputum cultures has been finalized MSSA 3patient seemed to showing overall clinical improvement with cefazolin 2 g every 8 hours and will finish therapy with oral Keflex and close out patient follow-up Time with Patient: Less than 30
== END 2022-04-15 15:21 | disposition home or self-care (01) | DRG 871 ==
LOC: EC 15:57 → 3SCARD 17:46
PROVIDERS: ADMIT Internal Medicine; ATTEND Internal Medicine
DX: A41.01 Sepsis due to Methicillin susceptible Staphylococcus aureus (principal); D61.810 Antineoplastic chemotherapy induced pancytopenia; J18.9 Pneumonia, unspecified organism; J15.9 Unspecified bacterial pneumonia; E43 Unspecified severe protein-calorie malnutrition; J90 Pleural effusion, not elsewhere classified; E87.1 Hypo-osmolality and hyponatremia; R04.2 Hemoptysis; C34.81 Malignant neoplasm of overlapping sites of right bronchus and lung; C79.31 Secondary malignant neoplasm of brain; C91.10 Chronic lymphocytic leukemia of B-cell type not having achieved remission; D70.1 Agranulocytosis secondary to cancer chemotherapy; R50.81 Fever presenting with conditions classified elsewhere; T45.1X5A Adverse effect of antineoplastic and immunosuppressive drugs, initial encounter; R19.7 Diarrhea, unspecified; I10 Essential (primary) hypertension; J43.9 Emphysema, unspecified; E86.0 Dehydration; I07.1 Rheumatic tricuspid insufficiency; K59.00 Constipation, unspecified; K14.3 Hypertrophy of tongue papillae; R53.1 Weakness; R09.02 Hypoxemia; J98.09 Other diseases of bronchus, not elsewhere classified; R65.20 Severe sepsis without septic shock; Z20.822 Contact with and (suspected) exposure to COVID-19; Z87.01 Personal history of pneumonia (recurrent); Z86.16 Personal history of COVID-19; Z90.49 Acquired absence of other specified parts of digestive tract; Z92.3 Personal history of irradiation; Z87.891 Personal history of nicotine dependence; Z80.0 Family history of malignant neoplasm of digestive organs; Z68.20 Body mass index [BMI] 20.0-20.9, adult
CPT/HCPCS: 36415; 71046; 76604; 80048; 80053; 80202; 82150; 82248; 82533; 83605; 83690; 83735; 84132; 84145; 84484; 85025; 85610; 85730; 86140; 87040; 87070; 87077; 87186; 87205; 87324; 87636; 93005; 93306; 94640; 94760; 96361; 96365; 96366; 96367; 99291

== ENCOUNTER 2022-04-28 15:38 | Inpatient (IN) | payer BC ==
[2022-04-28] MEDS ORDERED: SODIUM CHLORIDE 0.9% 500 ML 500 ML IV STA (16:17)
--- NOTE | 2022-04-28 16:27 | ED ---
General Adult HPI - General Chief complaint: Weakness Stated complaint: HR [address] [place] office Time Seen by Provider: 04/28/22 16:02 Source: patient, family, RN notes reviewed Mode of arrival: wheelchair Limitations: no limitations - History of Present Illness Initial comments: This is a pleasant 57-year-old male who presents to the emergency department accompanied by his spouse for evaluation of shortness of breath and elevated heart rate; states he was sent over from radiation because of these symptoms. Patient reports receiving chemoradiation treatment for lung cancer that has metastasized to the brain. States he was hospitalized and discharged last week due to dehydration. Has also received outpatient IV fluids due to lack of appetite and poor oral intake. States he did recently start on Marinol and is eating better today. States shortness of breath is constant and occurs with talking, walking, and activity. Denies fever, chills, dizziness, headache, chest pain, pain with breathing, sensation of palpitations, abdominal pain, nausea, vomiting, diarrhea, or dysuria at this time. - Related Data Home Medications Medication Instructions Recorded Confirmed Benzonatate [Tessalon Perles] 100 mg PO TID PRN 04/09/22 04/28/22 ondansetron HCL [Zofran] 8 mg PO Q8H PRN 04/09/22 04/28/22 Cephalexin [Keflex] 500 mg PO Q6H 04/28/22 04/28/22 Lactobacillus Acidoph & Bulgar 1 packet PO 0600,1700 04/28/22 04/28/22 [Lactinex] dronabinoL [Marinol] 2.5 mg PO BID 04/28/22 04/28/22 Previous Rx's Medication Instructions Recorded Acetaminophen Tab [Tylenol] 650 mg PO Q6HR PRN tab 04/15/22 Ipratropium-Albuterol Nebulize 3 ml INHALATION RT-TID 30 Days 04/15/22 [Duoneb 0.5 mg-3 mg/3 ml Soln] #120 each Ipratropium-Albuterol Nebulize 3 ml INHALATION RT-TID PRN each 04/15/22 [Duoneb 0.5 mg-3 mg/3 ml Soln] Loperamide [Imodium] 2 mg PO BID PRN #60 cap 04/15/22 Potassium Chloride ER [K-Dur 20] 20 meq PO BID 30 Days #60 tab 04/15/22 Allergies Allergy/AdvReac Type Severity Reaction Status Date / Time No Known Allergies Allergy Verified 04/28/22 19:26 Review of Systems ROS Statement: Those systems with pertinent positive or pertinent negative responses have been documented in the HPI. ROS Other: All systems not noted in ROS Statement are negative. Past Medical History Past Medical History: Cancer, Hypertension Additional Past Medical History / Comment(s): Hx Covid 11/2020. Some emphysema. Cancer to lungs and mets to brain. History of Any Multi-Drug Resistant Organisms: None Reported Past Surgical History: Cholecystectomy Additional Past Surgical History / Comment(s): DENTAL IMPLANTS WITH ANESTHESIA,. Radiation and chemo Past Anesthesia/Blood Transfusion Reactions: No Reported Reaction Past Psychological History: No Psychological Hx Reported Smoking Status: Former smoker Past Alcohol Use History: Occasional Past Drug Use History: None Reported - Past Family History Father Family Medical History: Cancer Additional Family Medical History / Comment(s): pancreatic cancer General Exam Limitations: no limitations General appearance: alert, in no apparent distress (Well-developed, poorly nourished male in no acute distress. Initial temperature 98.5, pulse 140, recheck 131, respirations 24, blood pressure 83/57, recheck 105/71, pulse ox 96% on room air.) Eye exam: Present: normal appearance. Absent: scleral icterus, conjunctival injection ENT exam: Present: mucous membranes dry Respiratory exam: Present: decreased breath sounds (Decreased breath sounds on the right). Absent: respiratory distress, chest wall tenderness Cardiovascular Exam: Present: tachycardia, normal heart sounds GI/Abdominal exam: Present: soft, normal bowel sounds. Absent: distended, tenderness, guarding, rebound, rigid Extremities exam: Present: normal inspection, full ROM, normal capillary refill. Absent: tenderness, pedal edema, joint swelling, calf tenderness Neurological exam: Present: alert, oriented X3 Psychiatric exam: Present: normal affect, normal mood Skin exam: Present: warm, dry, intact, pallor Course Vital Signs 04/28/22 04/28/22 04/28/22 15:45 15:52 17:17 Temperature 98.5 F 98.6 F Pulse Rate 140 H 130 H Pulse Rate [ 128 H Pulse Oximetery ] Respiratory 24 16 Rate Blood Pressure 83/57 104/58 O2 Sat by Pulse 96 95 Oximetry 04/28/22 21:02 Temperature 97.8 F Pulse Rate 112 H Pulse Rate [ Pulse Oximetery ] Respiratory 16 Rate Blood Pressure 113/69 O2 Sat by Pulse 94 L Oximetry - Reevaluation(s) Reevaluation #1: 04/28/22 17:12 Patient is a difficult IV start therefore delay in receiving fluids and obtaining laboratory specimen. Small 22 was placed in the right before meals and fluids are infusing at this time. Lab will be contacted for venipuncture. Patient is resting comfortably. Current Vital Signs: HR 124, RR 20, BP 112/51, SpO2 93% RA Medical Decision Making - Medical Decision Making This is a pleasant 57-year-old male who presents to the emergency department accompanied by his for evaluation of elevated heart rate and generalized weakness. Upon exam, patient is ill-appearing though in no acute distress. Room air sat is 90% on room air with decreased lung sounds on the right side. He is mildly tachypneic, tachycardic, and was hypotensive upon arrival. Patient has known lung cancer and was recently hospitalized. Patient was given IV fluids while in the ED with improvement in heart rate and blood pressure. His explains that he has been receiving Neupogen injections in preparation for the next round of chemotherapy. Laboratory studies were obtained showing WBC 21.5, hemoglobin 8.2 (stable), and platelets 1004. Patient will be admitted to the hospital for IV fluids. Consult placed to oncology. I spoke with IGGY Tello who agrees to accept this patient on behalf of [facility]. Attending: Taz. - Lab Data Result diagrams: 04/28/22 17:40 04/28/22 16:36 Lab Results 04/28/22 04/28/22 04/28/22 Range/Units 16:36 17:40 17:40 WBC (3.8-10.6) k/uL RBC (4.30-5.90) m/uL Hgb (13.0-17.5) gm/dL Hct (39.0-53.0) % MCV (80.0-100.0) fL MCH (25.0-35.0) pg MCHC (31.0-37.0) g/dL RDW (11.5-15.5) % Plt Count (150-450) k/uL MPV Neutrophils % % Lymphocytes % % Monocytes % % Eosinophils % % Basophils % % Neutrophils # (1.3-7.7) k/uL Lymphocytes # (1.0-4.8) k/uL Monocytes # (0-1.0) k/uL Eosinophils # (0-0.7) k/uL Basophils # (0-0.2) k/uL Manual Slide Review Polychromasia Hypochromasia Poikilocytosis (manual Anisocytosis PT 11.6 (9.0-12.0) sec INR 1.1 (<1.2) APTT 24.3 (22.0-30.0) sec Sodium 139 (137-145) mmol/L Potassium 4.5 (3.5-5.1) mmol/L Chloride 97 L (98-107) mmol/L Carbon Dioxide 27 (22-30) mmol/L Anion Gap 15 mmol/L BUN 15 (9-20) mg/dL Creatinine 0.82 (0.66-1.25) mg/dL Est GFR (CKD-EPI)AfAm >90 (>60 ml/min/1.73 sqM) Est GFR (CKD-EPI)NonAf >90 (>60 ml/min/1.73 sqM) Glucose 117 H (74-99) mg/dL Plasma Lactic Acid Adams 1.7 (0.7-2.0) mmol/L Calcium 8.6 (8.4-10.2) mg/dL Magnesium 1.8 (1.6-2.3) mg/dL Total Bilirubin 0.6 (0.2-1.3) mg/dL AST 61 H (17-59) U/L ALT 25 (4-49) U/L Alkaline Phosphatase 226 H (38-126) U/L Troponin I (0.000-0.034) ng/mL NT-Pro-B Natriuret Pep pg/mL Total Protein 6.7 (6.3-8.2) g/dL Albumin 2.8 L (3.5-5.0) g/dL 04/28/22 04/28/22 04/28/22 Range/Units 17:40 17:40 17:40 WBC 21.5 H (3.8-10.6) k/uL RBC 3.12 L (4.30-5.90) m/uL Hgb 8.2 L (13.0-17.5) gm/dL Hct 27.1 L (39.0-53.0) % MCV 86.9 (80.0-100.0) fL MCH 26.2 (25.0-35.0) pg MCHC 30.1 L (31.0-37.0) g/dL RDW 16.8 H (11.5-15.5) % Plt Count 1004 H* D (150-450) k/uL MPV 7.0 Neutrophils % 89 % Lymphocytes % 3 % Monocytes % 5 % Eosinophils % 0 % Basophils % 2 % Neutrophils # 19.2 H (1.3-7.7) k/uL Lymphocytes # 0.6 L (1.0-4.8) k/uL Monocytes # 1.0 (0-1.0) k/uL Eosinophils # 0.1 (0-0.7) k/uL Basophils # 0.4 H (0-0.2) k/uL Manual Slide Review Performed Polychromasia Present Hypochromasia Marked Poikilocytosis (manual Present Anisocytosis Slight PT (9.0-12.0) sec INR (<1.2) APTT (22.0-30.0) sec Sodium (137-145) mmol/L Potassium (3.5-5.1) mmol/L Chloride (98-107) mmol/L Carbon Dioxide (22-30) mmol/L Anion Gap mmol/L BUN (9-20) mg/dL Creatinine (0.66-1.25) mg/dL Est GFR (CKD-EPI)AfAm (>60 ml/min/1.73 sqM) Est GFR (CKD-EPI)NonAf (>60 ml/min/1.73 sqM) Glucose (74-99) mg/dL Plasma Lactic Acid Adams (0.7-2.0) mmol/L Calcium (8.4-10.2) mg/dL Magnesium (1.6-2.3) mg/dL Total Bilirubin (0.2-1.3) mg/dL AST (17-59) U/L ALT (4-49) U/L Alkaline Phosphatase (38-126) U/L Troponin I <0.012 (0.000-0.034) ng/mL NT-Pro-B Natriuret Pep 396 pg/mL Total Protein (6.3-8.2) g/dL Albumin (3.5-5.0) g/dL - EKG Data EKG shows normal: sinus rhythm Rate: tachycardia EKG Comments: EKG obtained at 1653 shows sinus tachycardia with possible right ventricular conduction delay. Ventricular rate 127, ME interval 152, QRS duration 82, QT/QTC 297/372. Interpretation: abnormal rhythm ECG. - Radiology Data Radiology results: report reviewed, image reviewed Two-view chest x-ray was obtained. Report was reviewed in its entirety. Impression per Dr. Arthur a similar appearance of moderate right pleural effusion with right upper lobe airspace opacities. Overall exams [place] [address] Disposition Clinical Impression: Dehydration, Generalized weakness, Shortness of breath Disposition: ADMITTED IP TO THIS [facility] Condition: Serious Is patient prescribed a controlled substance at d/c from ED?: No Decision Date: 04/28/22 Decision Time: 19:20
[2022-04-28 17:23] LABS: ALT 25 U/L (4-49); AST 61 U/L (17-59); African American GFR (CKD) >90 (>60 ml/min/1.73 sqM); Albumin 2.8 g/dL (3.5-5.0); Alkaline Phosphatase 226 U/L (38-126); Anion Gap 15 mmol/L; Blood Urea Nitrogen 15 mg/dL (9-20); Calcium 8.6 mg/dL (8.4-10.2); Carbon Dioxide 27 mmol/L (22-30); Chloride 97 mmol/L (98-107); Glucose 117 mg/dL (74-99); Magnesium 1.8 mg/dL (1.6-2.3); Non-African American GFR(CKD) >90 (>60 ml/min/1.73 sqM); Potassium 4.5 mmol/L (3.5-5.1); Sodium 139 mmol/L (137-145); Total Bilirubin 0.6 mg/dL (0.2-1.3); Total Protein 6.7 g/dL (6.3-8.2)
[2022-04-28 17:56] LABS: Anisocytosis Slight; Basophils # (A) 0.4 k/uL (0-0.2); Basophils % (A) 2 %; Eosinophils # (A) 0.1 k/uL (0-0.7); Eosinophils % (A) 0 %; HCT 27.1 % (39.0-53.0); HGB 8.2 gm/dL (13.0-17.5); Hypochromasia Marked; Lymphocytes # (A) 0.6 k/uL (1.0-4.8); Lymphocytes % (A) 3 %; MCH 26.2 pg (25.0-35.0); MCHC 30.1 g/dL (31.0-37.0); MCV 86.9 fL (80.0-100.0); Monocytes % (A) 5 %; Neutrophils # (A) 19.2 k/uL (1.3-7.7); Neutrophils % (A) 89 %; RBC 3.12 m/uL (4.30-5.90); RDW 16.8 % (11.5-15.5); WBC 21.5 k/uL (3.8-10.6)
[2022-04-28 18:03] LABS: INR 1.1 (<1.2); Partial Thromboplastin Time 24.3 sec (22.0-30.0); Prothrombin Time 11.6 sec (9.0-12.0)
[2022-04-28 18:05] LABS: Platelet Count 1004 k/uL (150-450)
--- NOTE | 2022-04-28 18:05 | XR ---
EXAMINATION TYPE: XR chest 2V DATE OF EXAM: 04/28/2022 5:22 PM COMPARISON: Chest radiographs from 04/15/2022, CT 02/15/2022. TECHNIQUE: XR chest 2V Frontal and lateral views of the chest. CLINICAL INDICATION:Male, 57 years old with history of Weakness; FINDINGS: Lungs/Pleura: Moderate right pleural effusion with associated atelectasis. No evidence of pneumothora x or large apical bulla noted. Pulmonary vascularity: Unremarkable. Heart/mediastinum: Cardiomediastinal silhouette is unremarkable. Musculoskeletal: No acute osseous pathology. IMPRESSION: Similar appearance of moderate right pleural effusion with right upper lobe airspace opacities. Overa ll exams not significantly changed from prior on 04/15/2022.
[2022-04-28] MEDS ORDERED: SODIUM CHLORIDE 0.9% 1,000 ML IV STA (18:16)
[2022-04-28 18:26] LABS: Poikilocytosis (M) Present; Polychromasia Present
[2022-04-28] MEDS ORDERED: ACETAMINOPHEN TAB 325 MG TAB PO PRN (19:46)
[2022-04-28] MEDS ORDERED: HYDROmorphone 0.5 MG/0.5 ML SYRINGE IVP PRN (19:46)
[2022-04-28] MEDS ORDERED: ONDANSETRON 4 MG/2 ML VIAL IVP PRN (19:46)
[2022-04-28] MEDS ORDERED: NALOXONE 0.4 MG/ML 1 ML VIAL IV PRN (19:46)
[2022-04-28] MEDS: SODIUM CHLORIDE 0.9% 1,000 ML IV SCH (19:58)
[2022-04-28] MEDS ORDERED: IPRATROPIUM-ALBUTEROL 3 ML NEB INHALATION PRN (20:16)
[2022-04-28] MEDS: CEPHALEXIN 500 MG CAP PO SCH (21:08)
[2022-04-29] MEDS: SODIUM CHLORIDE 0.9% 1,000 ML IV SCH ×3 (02:55→20:12)
[2022-04-29 04:45] LABS: Appearance,Urine Clear (Clear); Bilirubin,Urine Negative (Negative); Blood,Urine Trace (Negative); Color,Urine Yellow; Glucose,Urine (UA) Negative (Negative); Ketones,Urine Negative (Negative); Leukocyte Esterase,Urine Negative (Negative); Mucus,Urine Occasional /hpf; Nitrite,Urine Negative (Negative); PH, Urine 6.5 (5.0-8.0); Protein,Urine 1+ (Negative); RBC,Urine 4 /hpf (0-5); Specific Gravity,Urine 1.014 (1.001-1.035); Squamous Epithelial Cell,Urine <1 /hpf (0-4); WBC,Urine 3 /hpf (0-5)
[2022-04-29] MEDS: CEPHALEXIN 500 MG CAP PO SCH ×2 (08:57→15:54)
[2022-04-29 09:22] LABS: African American GFR (CKD) >90 (>60 ml/min/1.73 sqM); Anion Gap 9 mmol/L; Blood Urea Nitrogen 10 mg/dL (9-20); Calcium 7.5 mg/dL (8.4-10.2); Carbon Dioxide 26 mmol/L (22-30); Chloride 102 mmol/L (98-107); Glucose 73 mg/dL (74-99); Non-African American GFR(CKD) >90 (>60 ml/min/1.73 sqM); Sodium 137 mmol/L (137-145)
[2022-04-29 10:06] LABS: Anisocytosis Slight; Basophils # (A) 0.2 k/uL (0-0.2); Basophils % (A) 1 %; Eosinophils % (A) 0 %; HCT 27.8 % (39.0-53.0); Hypochromasia Marked; Lymphocytes # (A) 0.7 k/uL (1.0-4.8); Lymphocytes % (A) 4 %; MCH 25.2 pg (25.0-35.0); MCHC 28.9 g/dL (31.0-37.0); MCV 87.2 fL (80.0-100.0); Mean Platelet Volume 7.9; Monocytes # (A) 1.1 k/uL (0-1.0); Monocytes % (A) 6 %; Neutrophils # (A) 17.2 k/uL (1.3-7.7); Neutrophils % (A) 89 %; Platelet Count 946 k/uL (150-450); RBC 3.19 m/uL (4.30-5.90); RDW 16.6 % (11.5-15.5); WBC 19.4 k/uL (3.8-10.6)
--- NOTE | 2022-04-29 15:30 | P.CONS ---
History of Present Illness - Reason for Consult Consult date: 04/29/22 Lung cancer Requesting physician: Antwan Lara - Chief Complaint SOB - History of Present Illness Mr. Thomas is a very pleasant 57 yo male with history of lung cancer, completed chemoRT with carbo/etoposide about 3 weeks ago, s/p C2 of chemo on 04/03/22 and plan on continued chemo with carbo/etoposide however this is on hold due to recent hospitalization for pneumonia, who is here for SOB and tachycardia from Radiation Oncology. Has been having decreased oral intake. No fever, chills, dizziness, headache, chest pain, pain with breathing, sensation of palpitations, abdominal pain, nausea, vomiting, diarrhea, or dysuria at this time. Was recently started on marinol with slightly improved appetite. Work up in the ED with leukocytosis, WBC 20, thrombocytosis with plt 1000, and anemia, Hgb 8, MCV 86. WBC has been improving from being severely leukopenic in late 03/2022, Hgb stable, and plt were slightly low, 100-150, in late 03/2022. WBC and plt slightly decreased with hydration, down to 19 and 900 respectively. We were consulted regarding his cytosis and lung cancer history. Overall he feels relatively well. Says he has been feeling the same since disch arge. Does not feel great. Noted to have tachycardia when he was going for his follow-up visit at radiation oncology and sent to the ER. Has been receiving hydration. Continues to be significantly tachycardic. Cultures are pending. Patient continues to be on antibiotics. Chest x-ray with persistent right upper lung opacity and moderate right pleural effusion, unchanged from CT from 04/15/22. Onc History: This is a very nice patient who presented with progressive cough and dyspnea of about 2 months duration,had CXR which was suspicious for a RUL lung lesion,CT scan of chest on 02/01/2022 revealed large right hilar mass invading the wall of distal right main pulmonary artery,measured 10.1 cm involving the RUL and RML and extending to anterior RLL,there was 1.1 cm subcarinal node. 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 On 02/24/2022,PET scan revealed suspicious uptake in 9 x 6.4 cm right lung mass,1.1 cm subcarinla node,there was a 1 cm hypermetabolic focus in deep liver with no definite CT correlate. He feels tired but active,has mostly dry cough,mild intermittent hemoptysis,lost about 15 pounds within the last 6 months,no headaches,no nausea or vomiting no unusual pain. 03/06/22-MRI brain and liver are scheduled for 03/08/22. Pending NGS and PDL 1 testing. Patient has no acute complaints. He is here by himself for carbo/PLANT DIRECTOR education, going to have radiation as there is concern for potential collapse of the lung but intent could be palliative or definitive based on results of MRI of brain and liver. He is due to start treatment 03/13/22. 03/13/22: C1D1 of carbo/PLANT DIRECTOR 04/03/22: C2D1 of carbo/PLANT DIRECTOR 04/20/22: Seen in clinic. Recently discharged from hospital after admission for neutropenic fever, sepsis, diarrhea and MSSA pneumonia. 04/24/22: C3D1 of carbo/PLANT DIRECTOR due, however postponed until he completes antibiotic therapy Past Medical History Past Medical History: Cancer, Hypertension Additional Past Medical History / Comment(s): Hx Covid 11/2020. Some emphysema. Cancer to lungs and mets to brain. History of Any Multi-Drug Resistant Organisms: None Reported Past Surgical History: Cholecystectomy Additional Past Surgical History / Comment(s): DENTAL IMPLANTS WITH ANESTHESIA,. Radiation and chemo Past Anesthesia/Blood Transfusion Reactions: No Reported Reaction Past Psychological History: No Psychological Hx Reported Smoking Status: Former smoker Past Alcohol Use History: Occasional Past Drug Use History: None Reported - Past Family History Father Family Medical History: Cancer Additional Family Medical History / Comment(s): pancreatic cancer Medications and Allergies Home Medications Medication Instructions Recorded Confirmed Type Benzonatate [Tessalon Perles] 100 mg PO TID PRN 04/09/22 04/28/22 History ondansetron HCL [Zofran] 8 mg PO Q8H PRN 04/09/22 04/28/22 History Acetaminophen Tab [Tylenol] 650 mg PO Q6HR PRN tab 04/15/22 04/28/22 Rx Ipratropium-Albuterol Nebulize 3 ml INHALATION RT-TID 30 Days 04/15/22 04/28/22 Rx [Duoneb 0.5 mg-3 mg/3 ml Soln] #120 each Ipratropium-Albuterol Nebulize 3 ml INHALATION RT-TID PRN each 04/15/22 04/28/22 Rx [Duoneb 0.5 mg-3 mg/3 ml Soln] Loperamide [Imodium] 2 mg PO BID PRN #60 cap 04/15/22 04/28/22 Rx Potassium Chloride ER [K-Dur 20] 20 meq PO BID 30 Days #60 tab 04/15/22 04/28/22 Rx Cephalexin [Keflex] 500 mg PO Q6H 04/28/22 04/28/22 History Lactobacillus Acidoph & Bulgar 1 packet PO 0600,1700 04/28/22 04/28/22 History [Lactinex] dronabinoL [Marinol] 2.5 mg PO BID 04/28/22 04/28/22 History Allergies Allergy/AdvReac Type Severity Reaction Status Date / Time No Known Allergies Allergy Verified 04/28/22 19:26 Physical Exam Vitals: Vital Signs Temp Pulse Pulse Resp BP BP Pulse Ox 04/29/22 12:00 99.0 F 108 H 18 100/62 04/29/22 08:00 98.4 F 109 H 17 116/70 04/29/22 04:12 98.1 F 108 H 18 116/63 04/29/22 02:00 102 H 04/28/22 23:58 98.2 F 104 H 18 99/58 04/28/22 22:13 98.4 F 106 H 18 94/56 04/28/22 21:02 97.8 F 112 H 16 113/69 94 L 04/28/22 17:17 128 H 04/28/22 15:52 98.6 F 130 H 16 104/58 95 04/28/22 15:45 98.5 F 140 H 24 83/57 96 Intake and Output 04/28/22 04/29/22 04/29/22 22:59 06:59 14:59 Intake Total 10 1680 Output Total 550 Balance -540 1680 Intake: IV 10 Invasive Line 1 10 Intake, IV Titration 1040 Amount Sodium Chloride 0.9% 1, 1040 000 ml @ 130 mls/hr IV . Q7H42M [facility] Rx#:[id number] Oral 640 Output: Urine 550 Other: Voiding Method Toilet Toilet Weight 137 kg Gen.: NAD HEENT: Mucosa moist, no scleral icterus Neck: Supple Lungs: Clear to auscultation Heart: Tachycardic and regular rate Abdomen: Soft Extremities: No lower extremity edema Neuro: Alert and oriented 3 Psych: Appropriate affect Skin: No jaundice Results CBC & Chem 7: 04/29/22 07:28 04/29/22 07:28 Labs: Abnormal Lab Results - Last 24 Hours (Table) 04/28/22 04/28/22 04/28/22 Range/Units 16:36 16:36 17:40 WBC 21.5 H (3.8-10.6) k/uL RBC 3.12 L (4.30-5.90) m/uL Hgb 8.2 L (13.0-17.5) gm/dL Hct 27.1 L (39.0-53.0) % MCHC 30.1 L (31.0-37.0) g/dL RDW 16.8 H (11.5-15.5) % Plt Count 1004 H* D (150-450) k/uL Neutrophils # 19.2 H (1.3-7.7) k/uL Lymphocytes # 0.6 L (1.0-4.8) k/uL Monocytes # (0-1.0) k/uL Basophils # 0.4 H (0-0.2) k/uL Chloride 97 L (98-107) mmol/L Creatinine (0.66-1.25) mg/dL Glucose 117 H (74-99) mg/dL Calcium (8.4-10.2) mg/dL AST 61 H (17-59) U/L Alkaline Phosphatase 226 H (38-126) U/L Albumin 2.8 L (3.5-5.0) g/dL Procalcitonin 0.32 H (0.02-0.09) ng/mL Urine Protein (Negative) Urine Blood (Negative) Urine Mucus (None) /hpf 04/29/22 04/29/22 04/29/22 Range/Units 04:12 07:28 07:28 WBC 19.4 H (3.8-10.6) k/uL RBC 3.19 L (4.30-5.90) m/uL Hgb 8.0 L (13.0-17.5) gm/dL Hct 27.8 L (39.0-53.0) % MCHC 28.9 L (31.0-37.0) g/dL RDW 16.6 H (11.5-15.5) % Plt Count 946 H (150-450) k/uL Neutrophils # 17.2 H (1.3-7.7) k/uL Lymphocytes # 0.7 L (1.0-4.8) k/uL Monocytes # 1.1 H (0-1.0) k/uL Basophils # (0-0.2) k/uL Chloride (98-107) mmol/L Creatinine 0.59 L (0.66-1.25) mg/dL Glucose 73 L (74-99) mg/dL Calcium 7.5 L (8.4-10.2) mg/dL AST (17-59) U/L Alkaline Phosphatase (38-126) U/L Albumin (3.5-5.0) g/dL Procalcitonin (0.02-0.09) ng/mL Urine Protein 1+ H (Negative) Urine Blood Trace H (Negative) Urine Mucus Occasional H (None) /hpf Chest x-ray: report reviewed Assessment and Plan Assessment: 1. Lung cancer 2. Tachycardia, sinus 3. Leukocytosis and thrombocytosis 4. Anemia due to chemotherapy 5. Pneumonia Plan: Mr. Thomas is a very pleasant 57-year-old gentleman with recently found squamous cell carcinoma of the lung status post chemotherapy with radiation with 2 cycles of carboplatin and etoposide, last chemo on 04/05/22 when last ideation was about 3 weeks ago, who is here for shortness of breath and weakness as well as tachycardia. He was recently hospitalized for similar symptoms and was found to have BRYANT due to dehydration, which resolved, as well as the pneumonia. Discharged to continue with antibiotics and followed up in clinic at which point chemotherapy was held. Was seen in follow-up in radiation oncology clinic and sent here due to tachycardia. Noted to have significant leukocytosis and thrombocytosis. I suspect his leukocytosis and thrombocytosis is reactive due to acute illness. He is dehydrated and agree with hydration. Renal function seems to be baseline at this point. Agree with infectious work up area continues to be tachycardic, sinus. Continue to hold chemotherapy while inpatient. I will complete workup for his leukocytosis and thrombocytosis to rule out any other potential contributing etiology. Discussed with patient his sisters at bedside and they're agreeable to the plan. All of their questions were answered.
--- NOTE | 2022-04-29 21:53 | US ---
EXAMINATION TYPE: US chest DATE OF EXAM: 04/29/2022 COMPARISON: NONE CLINICAL HISTORY: Markings for thoracentesis by pulmonary staff. TECHNIQUE: Targeted ultrasound of the posterior lower bilateral hemithoraces EXAM MEASUREMENTS: Right Pleural Effusion pocket size: no significant fluid collection seen at this time Left Pleural Effusion pocket size: no significant fluid collection seen at this time Right side NOT marked for possible thoracentesis outside the dept. Left side NOT marked for possible thoracentesis outside the dept. Pulmonologists are able to review the images in the patient?s EMR. IMPRESSIONS: Ultrasound of the chest fails to demonstrate any significant pleural fluid.
[2022-04-30] MEDS ORDERED: BENZONATATE 100 MG CAP PO PRN (01:23)
[2022-04-30] MEDS ORDERED: AZITHROMYCIN 500 MG TAB PO STA (01:34)
--- NOTE | 2022-04-30 01:36 | P.HPIM ---
History of Present Illness H&P Date: 04/29/22 Chief Complaint: Shortness of breath Patient is a 57-year-old male with a known history of lung cancer with mets to brain, hypertension, previous history of smoking who underwent chemotherapy about 3 weeks ago and currently undergoing radiation therapy was sent from radiation oncologist office where he was found to be short of breath, tachycardic and hypotensive. Otherwise patient denied any complaints of fever or chills. No nausea vomiting or abdominal pain or diarrhea. Patient does have poor appetite with otherwise. Patient was recently hospitalized for pneumonia and was discharged with oral antibiotics. Patient was recently started on Marinol for appetite stimulation. Patient is currently awake alert and oriented. Denies any dysuria or hematuria. No cough or sputum production. Chest x-ray showed similar appearance of moderate right pleural effusion with right upper lobe airspace opacities. Overall exam is not significantly changed from recent study. EKG showed sinus tachycardia Patient was hypotensive with blood pressure 83/57 pulse is 140 respiration 24 and pulse ox 96% on room air on admission. Laboratory data showed WBC 21.4 hemoglobin 8.2 and platelets thousand 4 Sodium 139 potassium 4.5 chloride 97 bicarb is 27 BUN 15 and creatinine 0.81 blood sugar 117, AST 61 ALT 725 and alk phos 226 and troponin x1 negative and proBNP is 396 and procalcitonin level is 0.320 urinalysis negative. COVID-19 PCR influenza a and B nonreactive. Review of Systems Constitutional: Patient denies any fever or chills . Generalized weakness. Abdomen: Patient denied any nausea or vomiting or abd. pain Cardiovascular: Patient denies any chest pain or short of breath no palpitations. Respiratory: patient denied any cough is from production. Patient does have shortness of breath Neurologic: Patient denied any numbness or tingling headache. Musculoskeletal: Patient denies any complaints of joint swelling or deformity. Skin: Negative Psychiatric: Negative Endocrine: No heat or cold intolerance. No recent weight gain. Genitourinary: No dysuria or hematuria. All other 14 point ROS negative except the above Past Medical History Past Medical History: Cancer, Hypertension Additional Past Medical History / Comment(s): Hx Covid 11/2020. Some emphysema. Cancer to lungs and mets to brain. History of Any Multi-Drug Resistant Organisms: None Reported Past Surgical History: Cholecystectomy Additional Past Surgical History / Comment(s): DENTAL IMPLANTS WITH ANESTHESIA,. Radiation and chemo Past Anesthesia/Blood Transfusion Reactions: No Reported Reaction Past Psychological History: No Psychological Hx Reported Smoking Status: Former smoker Past Alcohol Use History: Occasional Past Drug Use History: None Reported - Past Family History Father Family Medical History: Cancer Additional Family Medical History / Comment(s): pancreatic cancer Medications and Allergies Home Medications Medication Instructions Recorded Confirmed Type Benzonatate [Tessalon Perles] 100 mg PO TID PRN 04/09/22 04/28/22 History ondansetron HCL [Zofran] 8 mg PO Q8H PRN 04/09/22 04/28/22 History Acetaminophen Tab [Tylenol] 650 mg PO Q6HR PRN tab 04/15/22 04/28/22 Rx Ipratropium-Albuterol Nebulize 3 ml INHALATION RT-TID 30 Days 04/15/22 04/28/22 Rx [Duoneb 0.5 mg-3 mg/3 ml Soln] #120 each Ipratropium-Albuterol Nebulize 3 ml INHALATION RT-TID PRN each 04/15/22 04/28/22 Rx [Duoneb 0.5 mg-3 mg/3 ml Soln] Loperamide [Imodium] 2 mg PO BID PRN #60 cap 04/15/22 04/28/22 Rx Potassium Chloride ER [K-Dur 20] 20 meq PO BID 30 Days #60 tab 04/15/22 04/28/22 Rx Cephalexin [Keflex] 500 mg PO Q6H 04/28/22 04/28/22 History Lactobacillus Acidoph & Bulgar 1 packet PO 0600,1700 04/28/22 04/28/22 History [Lactinex] dronabinoL [Marinol] 2.5 mg PO BID 04/28/22 04/28/22 History Allergies Allergy/AdvReac Type Severity Reaction Status Date / Time No Known Allergies Allergy Verified 04/28/22 19:26 Physical Exam Vitals: Vital Signs Temp Pulse Pulse Resp BP BP Pulse Ox 04/29/22 12:00 99.0 F 108 H 18 100/62 04/29/22 08:00 98.4 F 109 H 17 116/70 04/29/22 04:12 98.1 F 108 H 18 116/63 04/29/22 02:00 102 H 04/28/22 23:58 98.2 F 104 H 18 99/58 04/28/22 22:13 98.4 F 106 H 18 94/56 04/28/22 21:02 97.8 F 112 H 16 113/69 94 L 04/28/22 17:17 128 H 04/28/22 15:52 98.6 F 130 H 16 104/58 95 04/28/22 15:45 98.5 F 140 H 24 83/57 96 Intake and Output 04/28/22 04/29/22 04/29/22 22:59 06:59 14:59 Intake Total 10 1680 Output Total 550 Balance -540 1680 Intake: IV 10 Invasive Line 1 10 Intake, IV Titration 1040 Amount Sodium Chloride 0.9% 1, 1040 000 ml @ 130 mls/hr IV . Q7H42M [facility] Rx#:[id number] Oral 640 Output: Urine 550 Other: Voiding Method Toilet Toilet Weight 137 kg PHYSICAL EXAMINATION: Patient is lying in the bed comfortably, no acute distress, awake alert and oriented.. HEENT: Normocephalic. Neck is supple. Pupils reactive. Nostrils clear. Oral cavity is moist. Neck reveals no JVD, carotid bruits, or thyromegaly. CHEST EXAMINATION: Trachea is central. Symmetrical expansion. Right basilar diminished sounds. No wheezing or rhonchi.. CARDIAC: Normal S1, S2 with no gallops. No murmurs ABDOMEN: Soft. Bowel sounds present. Nontender. No organomegaly. No abdominal bruits. Extremities: reveal no edema. No clubbing or cyanosis Neurologically awake, alert, oriented x3 with well-coordinated movements. No focal deficits noted Skin: No rash or skin lesions. Psychiatric: Coperative. Nonsuicidal, Musculoskeletal: No joint swelling or deformity. Normal range of motion. Results CBC & Chem 7: 04/30/22 07:57 04/30/22 07:57 Labs: Abnormal Lab Results - Last 24 Hours (Table) 04/28/22 04/28/22 04/28/22 Range/Units 16:36 16:36 17:40 WBC 21.5 H (3.8-10.6) k/uL RBC 3.12 L (4.30-5.90) m/uL Hgb 8.2 L (13.0-17.5) gm/dL Hct 27.1 L (39.0-53.0) % MCHC 30.1 L (31.0-37.0) g/dL RDW 16.8 H (11.5-15.5) % Plt Count 1004 H* D (150-450) k/uL Neutrophils # 19.2 H (1.3-7.7) k/uL Lymphocytes # 0.6 L (1.0-4.8) k/uL Monocytes # (0-1.0) k/uL Basophils # 0.4 H (0-0.2) k/uL Chloride 97 L (98-107) mmol/L Creatinine (0.66-1.25) mg/dL Glucose 117 H (74-99) mg/dL Calcium (8.4-10.2) mg/dL AST 61 H (17-59) U/L Alkaline Phosphatase 226 H (38-126) U/L Albumin 2.8 L (3.5-5.0) g/dL Procalcitonin 0.32 H (0.02-0.09) ng/mL Urine Protein (Negative) Urine Blood (Negative) Urine Mucus (None) /hpf 04/29/22 04/29/22 04/29/22 Range/Units 04:12 07:28 07:28 WBC 19.4 H (3.8-10.6) k/uL RBC 3.19 L (4.30-5.90) m/uL Hgb 8.0 L (13.0-17.5) gm/dL Hct 27.8 L (39.0-53.0) % MCHC 28.9 L (31.0-37.0) g/dL RDW 16.6 H (11.5-15.5) % Plt Count 946 H (150-450) k/uL Neutrophils # 17.2 H (1.3-7.7) k/uL Lymphocytes # 0.7 L (1.0-4.8) k/uL Monocytes # 1.1 H (0-1.0) k/uL Basophils # (0-0.2) k/uL Chloride (98-107) mmol/L Creatinine 0.59 L (0.66-1.25) mg/dL Glucose 73 L (74-99) mg/dL Calcium 7.5 L (8.4-10.2) mg/dL AST (17-59) U/L Alkaline Phosphatase (38-126) U/L Albumin (3.5-5.0) g/dL Procalcitonin (0.02-0.09) ng/mL Urine Protein 1+ H (Negative) Urine Blood Trace H (Negative) Urine Mucus Occasional H (None) /hpf Thrombosis Risk Factor Assmnt - DVT/VTE Prophylaxis DVT/VTE Prophylaxis: Pharmacologic Prophylaxis ordered - Choose All That Apply Any of the Below Risk Factors Present?: Yes Each Factor Represents 1 point: Age 41-60 years Thrombosis Risk Factor Assessment Total Risk Factor Score: 1 Thrombosis Risk Factor Assessment Level: Low Risk Assessment and Plan Assessment: Right upper lobe opacity due to possible pneumonia Hypotensive tachycardia could be due to decreased oral intake. Sepsis unlikley Moderate right pleural effusion as well chest x-ray Lung cancer with mets to brain status postchemotherapy and currently undergoing radiation therapy. Significant thrombocytosis Poor appetite and oral intake History of COVID-19 infection 2020 Previous history of smoking DVT prophylaxis with Lovenox subcu and GI prophylaxis Plan: Patient will be continued on antibiotics for home of ceftriaxone and azithromycin. Continue with IV hydration and follow-up blood cultures. Continue symptomatic management for nausea. Pulmonary will be consulted due to moderate pleural effusion and oncology is on board. Follow-up CBC and BMP tomorrow. Prognosis is guarded at this time. Time with Patient: Greater than 30
[2022-04-30] MEDS: SODIUM CHLORIDE 0.9% 1,000 ML IV SCH ×3 (02:25→19:59)
[2022-04-30] MEDS: PANTOPRAZOLE 40 MG TABLET PO SCH (06:36)
[2022-04-30] MEDS: LACTOBACILLUS ACIDOPH & BULGAR 1 EACH PACKET PO SCH ×2 (08:30→19:58)
[2022-04-30 09:45] LABS: African American GFR (CKD) >90 (>60 ml/min/1.73 sqM); Anion Gap 8 mmol/L; Blood Urea Nitrogen 6 mg/dL (9-20); Calcium 7.3 mg/dL (8.4-10.2); Carbon Dioxide 23 mmol/L (22-30); Chloride 105 mmol/L (98-107); Glucose 99 mg/dL (74-99); Non-African American GFR(CKD) >90 (>60 ml/min/1.73 sqM); Potassium 3.5 mmol/L (3.5-5.1); Sodium 136 mmol/L (137-145)
[2022-04-30 10:09] LABS: Anisocytosis Slight; Basophils # (A) 0.1 k/uL (0-0.2); Basophils % (A) 1 %; Eosinophils % (A) 0 %; HCT 25.4 % (39.0-53.0); HGB 7.6 gm/dL (13.0-17.5); Hypochromasia Marked; Lymphocytes # (A) 0.7 k/uL (1.0-4.8); Lymphocytes % (A) 5 %; MCV 86.8 fL (80.0-100.0); Mean Platelet Volume 7.7; Monocytes # (A) 0.8 k/uL (0-1.0); Monocytes % (A) 5 %; Neutrophils # (A) 13.7 k/uL (1.3-7.7); Neutrophils % (A) 88 %; Platelet Count 754 k/uL (150-450); RBC 2.93 m/uL (4.30-5.90); WBC 15.5 k/uL (3.8-10.6)
--- NOTE | 2022-04-30 13:03 | P.CNPUL ---
History of Present Illness Consult date: 04/30/22 Requesting physician: Ghada Luo Reason for consult: lung mass Chief complaint: Low blood pressure and rapid heart rate History of present illness: This is a 57-year-old white male with history of squamous cell lung cancer, this was diagnosed back on 02/16/22 this was diagnosed by Dr. Huynh were in he found a endobronchial right bronchus intermedius tumor, biopsy results came back positive for squamous cell lung cancer. Patient was also diagnosed as having brain metastasis, patient underwent radiation therapy to the brain, he also underwent chemotherapy with carboplatinum and etoposide, last on 04/03/22, and his chemotherapy was placed on hold recently because of pneumonia. Patient was seen by radiation oncology and he was found to have shortness of breath, hypotension, and tachycardia, patient had very poor oral intake, hence he was advised to go to the ER. A shunt was admitted mostly with dehydration, chest x- ray and CT of the chest showed significant consolidation in the right lower lobe and possible right-sided pleural effusion however ultrasound did not show much of an effusion to consider thoracentesis. Considering the findings, this consult was initially. In the meantime the patient is receiving IV fluids for profound dehydration on his initial presentation, and he seems to be doing much better at present. On admission the patient was found to have leukocytosis with WBC count of 21.5 hemoglobin 8.2 elevated platelets, electrolytes were basically unremarkable. Pro-calcitonin was 0.32. Patient had negative screening for COVID-19. During my evaluation today, the patient is feeling better, denies any cough wheezing or shortness of breath, denies any chest pain, patient is receiving IV fluid at 1 50 mL per hour. Review of Systems Constitutional: Weakness and fatigue and weight loss. No fever no chills GI: Denies nausea vomiting abdominal pain diarrhea. Cardiovascular: Denies chest pain and orthopnea PND Respiratory: Denies cough or wheezing he has minimal dyspnea on exertion Neurologic: Negative. Musculoskeletal: Negative. Skin: Negative Psychiatric: Negative Endocrine: Negative. Genitourinary: Negative Past Medical History Past Medical History: Cancer, Hypertension Additional Past Medical History / Comment(s): Hx Covid 11/2020. Some emphysema. Cancer to lungs and mets to brain. History of Any Multi-Drug Resistant Organisms: None Reported Past Surgical History: Cholecystectomy Additional Past Surgical History / Comment(s): DENTAL IMPLANTS WITH ANESTHESIA,. Radiation and chemo Past Anesthesia/Blood Transfusion Reactions: No Reported Reaction Past Psychological History: No Psychological Hx Reported Smoking Status: Former smoker Past Alcohol Use History: Occasional Past Drug Use History: None Reported - Past Family History Father Family Medical History: Cancer Additional Family Medical History / Comment(s): pancreatic cancer Medications and Allergies Home Medications Medication Instructions Recorded Confirmed Type Benzonatate [Tessalon Perles] 100 mg PO TID PRN 04/09/22 04/28/22 History ondansetron HCL [Zofran] 8 mg PO Q8H PRN 04/09/22 04/28/22 History Acetaminophen Tab [Tylenol] 650 mg PO Q6HR PRN tab 04/15/22 04/28/22 Rx Ipratropium-Albuterol Nebulize 3 ml INHALATION RT-TID 30 Days 04/15/22 04/28/22 Rx [Duoneb 0.5 mg-3 mg/3 ml Soln] #120 each Ipratropium-Albuterol Nebulize 3 ml INHALATION RT-TID PRN each 04/15/22 04/28/22 Rx [Duoneb 0.5 mg-3 mg/3 ml Soln] Loperamide [Imodium] 2 mg PO BID PRN #60 cap 04/15/22 04/28/22 Rx Potassium Chloride ER [K-Dur 20] 20 meq PO BID 30 Days #60 tab 04/15/22 04/28/22 Rx Cephalexin [Keflex] 500 mg PO Q6H 04/28/22 04/28/22 History Lactobacillus Acidoph & Bulgar 1 packet PO 0600,1700 04/28/22 04/28/22 History [Lactinex] dronabinoL [Marinol] 2.5 mg PO BID 04/28/22 04/28/22 History Allergies Allergy/AdvReac Type Severity Reaction Status Date / Time No Known Allergies Allergy Verified 04/28/22 19:26 Physical Exam Vitals: Vital Signs Temp Pulse Resp BP Pulse Ox 04/30/22 08:00 98.0 F 97 16 116/69 97 04/30/22 04:00 98.2 F 101 H 16 116/66 96 04/29/22 23:24 98.2 F 103 H 16 112/57 93 L 04/29/22 20:00 98.4 F 101 H 16 124/70 95 04/29/22 16:09 94 L 04/29/22 16:00 98.3 F 101 H 16 111/65 Intake and Output 04/29/22 04/30/22 04/30/22 22:59 06:59 14:59 Intake Total 480 118 Balance 480 118 Intake: Oral 480 118 Other: Voiding Method Toilet Toilet Toilet # Voids 1 1 Physical Exam: Revealed a 57-year-old, very pleasant, in no distress. On room air, O2 saturation 97%. Head: Atraumatic, normocephalic. HEENT:[Neck is supple.] [No neck masses.] [No thyromegaly.] [No JVD.] Chest: Diminished breath sounds and dullness at the right base, no crackles or rhonchi or wheezes..] Cardiac Exam: [Normal S1 and S2, no S3 gallop, no murmur.] Abdomen: [Soft, nontender, no megaly, no rebound, no guarding, normal bowel sounds.] Extremities: [No clubbing, no edema, no cyanosis.] Neurological Exam: [No focal neurologic deficit.] Alert and oriented 3. Skin: No rashes. Results - Laboratory Findings CBC and BMP: 04/30/22 07:57 04/30/22 07:57 PT/INR, D-dimer PT 11.6 sec (9.0-12.0) 04/28/22 17:40 INR 1.1 (<1.2) 04/28/22 17:40 Abnormal lab findings: Abnormal Labs 04/28/22 04/28/22 04/28/22 16:36 16:36 17:40 WBC 21.5 H RBC 3.12 L Hgb 8.2 L Hct 27.1 L MCHC 30.1 L RDW 16.8 H Plt Count 1004 H* D Neutrophils # 19.2 H Lymphocytes # 0.6 L Monocytes # Basophils # 0.4 H Sodium Chloride 97 L BUN Creatinine Glucose 117 H Calcium AST 61 H Alkaline Phosphatase 226 H Albumin 2.8 L Procalcitonin 0.32 H Urine Protein Urine Blood Urine Mucus 04/29/22 04/29/22 04/29/22 04:12 07:28 07:28 WBC 19.4 H RBC 3.19 L Hgb 8.0 L Hct 27.8 L MCHC 28.9 L RDW 16.6 H Plt Count 946 H Neutrophils # 17.2 H Lymphocytes # 0.7 L Monocytes # 1.1 H Basophils # Sodium Chloride BUN Creatinine 0.59 L Glucose 73 L Calcium 7.5 L AST Alkaline Phosphatase Albumin Procalcitonin Urine Protein 1+ H Urine Blood Trace H Urine Mucus Occasional H 04/30/22 04/30/22 07:57 07:57 WBC 15.5 H RBC 2.93 L Hgb 7.6 L Hct 25.4 L MCHC 30.0 L RDW 17.0 H Plt Count 754 H Neutrophils # 13.7 H Lymphocytes # 0.7 L Monocytes # Basophils # Sodium 136 L Chloride BUN 6 L Creatinine 0.60 L Glucose Calcium 7.3 L AST Alkaline Phosphatase Albumin Procalcitonin Urine Protein Urine Blood Urine Mucus - Diagnostic Findings Chest x-ray: image reviewed (Chest x-ray showed moderate right-sided consolidation and atelectasis, possible effusion, but not clearly seen on ultrasound.) Assessment and Plan Assessment: Impression: Hypotension and tachycardia secondary to dehydration, strongly doubt sepsis and septic shock. Possible postobstructive pneumonia Squamous cell lung cancer with brain metastasis status post chemo and radiation therapy Significant thrombocytosis secondary to malignancy. Weight loss secondary to metastatic lung cancer. Recommendation: Continue antibiotics empirically including Rocephin and Zithromax Continue IV hydration Consider discharge planning on oral antibiotics in the next 24 hours Patient to follow-up with Dr. Huynh post discharge. Continue GI and DVT prophylaxis. Ultrasound of the chest was reviewed, no fluid to drain. And no need for thoracentesis. Time with Patient: Greater than 30
[2022-04-30 16:39] LABS: % Iron Saturation 11.88 (15.00-50.00); Iron 17 ug/dL (65-175); Total Iron Binding Capacity 141 ug/dL (228-460)
[2022-04-30 17:11] LABS: Vitamin B12 >2000.0 pg/mL (200.0-944.0)
[2022-04-30] MEDS: ENOXAPARIN 40 MG/0.4 ML SYRINGE SQ SCH (19:57)
--- NOTE | 2022-05-01 00:49 | P.PN ---
Subjective Progress Note Date: 04/30/22 Patient is a 57-year-old male with a known history of lung cancer with mets to brain, hypertension, previous history of smoking who underwent chemotherapy about 3 weeks ago and currently undergoing radiation therapy was sent from radiation oncologist office where he was found to be short of breath, tachyc ardic and hypotensive. Otherwise patient denied any complaints of fever or chills. No nausea vomiting or abdominal pain or diarrhea. Patient does have poor appetite with otherwise. Patient was recently hospitalized for pneumonia and was discharged with oral antibiotics. Patient was recently started on Marinol for appetite stimulation. Patient is currently awake alert and oriented. Denies any dysuria or hematuria. No cough or sputum production. Chest x-ray showed similar appearance of moderate right pleural effusion with right upper lobe airspace opacities. Overall exam is not significantly changed from recent study. EKG showed sinus tachycardia Patient was hypotensive with blood pressure 83/57 pulse is 140 respiration 24 and pulse ox 96% on room air on admission. Laboratory data showed WBC 21.4 hemoglobin 8.2 and platelets thousand 4 Sodium 139 potassium 4.5 chloride 97 bicarb is 27 BUN 15 and creatinine 0.81 blood sugar 117, AST 61 ALT 725 and alk phos 226 and troponin x1 negative and proBNP is 396 and procalcitonin level is 0.320 urinalysis negative. COVID-19 PCR influenza a and B nonreactive. 04/30/2022 Patient is currently resting in bed. Awake alert and oriented x3. Is alert. No complaints of headache or dizziness or lightheadedness. Blood pressure is in 120s. Saturating well on room air. No complaints of cough or sputum production. Ultrasound of the chest showed no significant pleural effusion.. Otherwise patient is being current on antibiotics of ceftriaxone and azithromycin. Laboratory data showed WBC 15.4 hemoglobin 10.6 and platelets 754 Sodium 136 potassium 3.5 chloride 105 bicarb is 23 BUN 6 and 0.60 Pulmonary is on board. Current medications reviewed. Objective - Vital Signs Vital signs: Vital Signs Temp 98.2 F 04/30/22 16:00 Pulse 98 04/30/22 16:00 Resp 14 04/30/22 16:00 BP 121/71 04/30/22 16:00 Pulse Ox 98 04/30/22 16:00 FiO2 Intake & Output 04/30/22 04/30/22 05/01/22 06:59 18:59 06:59 Intake Total 240 355 Balance 240 355 Intake: Oral 240 355 Other: Voiding Method Toilet Toilet # Voids 1 2 - Exam PHYSICAL EXAMINATION: Patient is lying in the bed comfortably, no acute distress, awake alert and oriented.. HEENT: Normocephalic. Neck is supple. Pupils reactive. Nostrils clear. Oral cavity is moist. Neck reveals no JVD, carotid bruits, or thyromegaly. CHEST EXAMINATION: Trachea is central. Symmetrical expansion. Right basilar diminished sounds. No wheezing or rhonchi.. CARDIAC: Normal S1, S2 with no gallops. No murmurs ABDOMEN: Soft. Bowel sounds present. Nontender. No organomegaly. No abdominal bruits. Extremities: reveal no edema. No clubbing or cyanosis Neurologically awake, alert, oriented x3 with well-coordinated movements. No focal deficits noted Skin: No rash or skin lesions. Psychiatric: Coperative. Nonsuicidal, Musculoskeletal: No joint swelling or deformity. Normal range of motion. - Labs CBC & Chem 7: 04/30/22 07:57 04/30/22 07:57 Labs: Abnormal Lab Results - Last 24 Hours (Table) 04/30/22 04/30/22 04/30/22 Range/Units 07:57 07:57 07:57 WBC 15.5 H (3.8-10.6) k/uL RBC 2.93 L (4.30-5.90) m/uL Hgb 7.6 L (13.0-17.5) gm/dL Hct 25.4 L (39.0-53.0) % MCHC 30.0 L (31.0-37.0) g/dL RDW 17.0 H (11.5-15.5) % Plt Count 754 H (150-450) k/uL Neutrophils # 13.7 H (1.3-7.7) k/uL Lymphocytes # 0.7 L (1.0-4.8) k/uL Sodium 136 L (137-145) mmol/L BUN 6 L (9-20) mg/dL Creatinine 0.60 L (0.66-1.25) mg/dL Calcium 7.3 L (8.4-10.2) mg/dL Iron 17 L (65-175) ug/dL TIBC 141 L (228-460) ug/dL % Saturation 11.88 L (15.00-50.00) Transferrin 101.0 L (204.0-354.0) mg/dL Ferritin 3681.0 H (22.0-322.0) ng/mL Vitamin B12 >2000.0 H (200.0-944.0) pg/mL Folate 4.30 L (4.40-31.00) ng/mL Microbiology - Last 24 Hours (Table) 04/28/22 17:35 Blood Culture - Preliminary Blood No Growth after 48 hours 04/28/22 17:40 Blood Culture - Preliminary Blood No Growth after 48 hours Assessment and Plan Assessment: Right upper lobe opacity due to possible pneumonia Hypotensive tachycardia could be due to decreased oral intake. Sepsis unlikley Moderate right pleural effusion as well chest x-ray.Ultrasound of the chest showed no significant pleural effusion. Lung cancer with mets to brain status postchemotherapy and currently undergoing radiation therapy. Significant thrombocytosis Poor appetite and oral intake History of COVID-19 infection 2020 Previous history of smoking DVT prophylaxis with Lovenox subcu and GI prophylaxis Plan: Patient will be continued on antibiotics for home of ceftriaxone and azithromycin. Continue with IV hydration and follow-up blood cultures. Continue symptomatic management for nausea. Pulmonary will be consulted due to moderate pleural effusion and oncology is on board. Follow-up CBC and BMP tomorrow. Prognosis is guarded at this time. Time with Patient: Greater than 30
[2022-05-01] MEDS: PANTOPRAZOLE 40 MG TABLET PO SCH (06:30)
[2022-05-01] MEDS: SODIUM CHLORIDE 0.9% 1,000 ML IV SCH ×2 (06:32→20:53)
[2022-05-01 06:51] LABS: Anisocytosis Slight; Basophils # (A) 0.1 k/uL (0-0.2); Basophils % (A) 1 %; Eosinophils % (A) 0 %; HCT 25.1 % (39.0-53.0); HGB 7.5 gm/dL (13.0-17.5); Hypochromasia Marked; Lymphocytes # (A) 0.8 k/uL (1.0-4.8); Lymphocytes % (A) 5 %; MCH 25.4 pg (25.0-35.0); MCHC 29.8 g/dL (31.0-37.0); MCV 85.5 fL (80.0-100.0); Mean Platelet Volume 6.5; Monocytes # (A) 0.6 k/uL (0-1.0); Monocytes % (A) 4 %; Neutrophils # (A) 13.3 k/uL (1.3-7.7); Neutrophils % (A) 89 %; Platelet Count 776 k/uL (150-450); Poikilocytosis Slight; RBC 2.93 m/uL (4.30-5.90); RDW 17.6 % (11.5-15.5); WBC 14.9 k/uL (3.8-10.6)
[2022-05-01 07:08] LABS: African American GFR (CKD) >90 (>60 ml/min/1.73 sqM); Anion Gap 8 mmol/L; Blood Urea Nitrogen 5 mg/dL (9-20); Calcium 7.4 mg/dL (8.4-10.2); Carbon Dioxide 26 mmol/L (22-30); Chloride 102 mmol/L (98-107); Glucose 93 mg/dL (74-99); Non-African American GFR(CKD) >90 (>60 ml/min/1.73 sqM); Sodium 136 mmol/L (137-145)
[2022-05-01] MEDS: FOLIC ACID 1 MG TAB PO SCH (08:47)
[2022-05-01] MEDS: LACTOBACILLUS ACIDOPH & BULGAR 1 EACH PACKET PO SCH ×2 (08:47→20:53)
[2022-05-01] MEDS ORDERED: Potassium Replacement Protocol 1 EACH MISC MISCELLANE PRN (11:14)
[2022-05-01] MEDS: POTASSIUM CHLORIDE ER 20 MEQ TAB.ER PO SCH (12:00)
--- NOTE | 2022-05-01 14:26 | P.PN ---
Subjective Progress Note Date: 05/01/22 Principal diagnosis: Hypotension. This is a 57-year-old white male with history of squamous cell lung cancer, this was diagnosed back on 02/16/22 this was diagnosed by Dr. Huynh were in he found a endobronchial right bronchus intermedius tumor, biopsy results came back positive for squamous cell lung cancer. Patient was also diagnosed as having brain metastasis, patient underwent radiation therapy to the brain, he also underwent chemotherapy with carboplatinum and etoposide, last on 04/03/22, and his chemotherapy was placed on hold recently because of pneumonia. Patient was seen by radiation oncology and he was found to have shortness of breath, hypotension, and tachycardia, patient had very poor oral intake, hence he was advised to go to the ER. A shunt was admitted mostly with dehydration, chest x- ray and CT of the chest showed significant consolidation in the right lower lobe and possible right-sided pleural effusion however ultrasound did not show much of an effusion to consider thoracentesis. Considering the findings, this consult was initially. In the meantime the patient is receiving IV fluids for profound dehydration on his initial presentation, and he seems to be doing much better at present. On admission the patient was found to have leukocytosis with WBC count of 21.5 hemoglobin 8.2 elevated platelets, electrolytes were basically unremarkable. Pro-calcitonin was 0.32. Patient had negative screening for COVID-19. During my evaluation today, the patient is feeling better, denies any cough wheezing or shortness of breath, denies any chest pain, patient is receiving IV fluid at 1 50 mL per hour. Progress note dated 05/01/2022. 57-year-old male with history of lung cancer. He was diagnosed in January of this year by my partner. The patient has metastatic disease, to the brain, and did have whole brain radiation. In addition, he underwent chemotherapy. The patient was admitted with a diagnosis of hypotension and dehydration. The patient was seen by my partner in consultation yesterday. Currently, his blood pressure is normal. He is getting saline at 75 mL an hour. He's on room air. He is hoping to be discharged home today. Laboratory data includes a white count of 14.9, hemoglobin 7.5, hematocrit 25.1, and a platelet count of 776,000. Sodium 136, potassium 3, chlorides 102, CO2 26, BUN 5, creatinine 0.6. Chest u ltrasound was negative for any significant fluid. Objective - Vital Signs Vital signs: Vital Signs Temp 98.0 F 05/01/22 12:00 Pulse 95 05/01/22 12:00 Resp 18 05/01/22 12:00 BP 114/67 05/01/22 12:00 Pulse Ox 96 05/01/22 12:00 FiO2 Intake & Output 04/30/22 05/01/22 05/01/22 18:59 06:59 18:59 Intake Total 355 480 236 Balance 355 480 236 Intake: Oral 355 480 236 Other: Voiding Method Toilet Toilet Toilet # Voids 2 2 - Exam No acute distress, oriented 3. Currently on room air. No respiratory distress. HEENT examination is grossly unremarkable. Neck supple. Full range of motion. No adenopathy thyromegaly or neck vein distention. Cardiovascular examination reveals regular rhythm rate. S1-S2 normal. No S3 or S4. No discernible murmur noted. Heart rate 79 bpm. Lungs reveal scattered bilateral rhonchi. No wheezes. No crackles. Breath sounds equal bilaterally. Abdomen soft bowel sounds are heard. No masses or tenderness. Extremities are intact. No cyanosis clubbing or edema. Skin is without rash or lesion. Neurologic examination is brief but nonfocal. - Labs CBC & Chem 7: 05/01/22 06:26 05/01/22 06:26 Labs: Abnormal Lab Results - Last 24 Hours (Table) 04/30/22 04/30/22 05/01/22 Range/Units 07:57 07:57 06:26 WBC 14.9 H (3.8-10.6) k/uL RBC 2.93 L (4.30-5.90) m/uL Hgb 7.5 L (13.0-17.5) gm/dL Hct 25.1 L (39.0-53.0) % MCHC 29.8 L (31.0-37.0) g/dL RDW 17.6 H (11.5-15.5) % Plt Count 776 H (150-450) k/uL Neutrophils # 13.3 H (1.3-7.7) k/uL Lymphocytes # 0.8 L (1.0-4.8) k/uL Sodium (137-145) mmol/L Potassium (3.5-5.1) mmol/L BUN (9-20) mg/dL Creatinine (0.66-1.25) mg/dL Calcium (8.4-10.2) mg/dL Iron 17 L (65-175) ug/dL TIBC 141 L (228-460) ug/dL % Saturation 11.88 L (15.00-50.00) Transferrin 101.0 L (204.0-354.0) mg/dL Ferritin 3681.0 H (22.0-322.0) ng/mL Vitamin B12 >2000.0 H (200.0-944.0) pg/mL Folate 4.30 L (4.40-31.00) ng/mL 05/01/22 Range/Units 06:26 WBC (3.8-10.6) k/uL RBC (4.30-5.90) m/uL Hgb (13.0-17.5) gm/dL Hct (39.0-53.0) % MCHC (31.0-37.0) g/dL RDW (11.5-15.5) % Plt Count (150-450) k/uL Neutrophils # (1.3-7.7) k/uL Lymphocytes # (1.0-4.8) k/uL Sodium 136 L (137-145) mmol/L Potassium 3.0 L (3.5-5.1) mmol/L BUN 5 L (9-20) mg/dL Creatinine 0.60 L (0.66-1.25) mg/dL Calcium 7.4 L (8.4-10.2) mg/dL Iron (65-175) ug/dL TIBC (228-460) ug/dL % Saturation (15.00-50.00) Transferrin (204.0-354.0) mg/dL Ferritin (22.0-322.0) ng/mL Vitamin B12 (200.0-944.0) pg/mL Folate (4.40-31.00) ng/mL Microbiology - Last 24 Hours (Table) 04/28/22 17:35 Blood Culture - Preliminary Blood No Growth after 48 hours 04/28/22 17:40 Blood Culture - Preliminary Blood No Growth after 48 hours Assessment and Plan Assessment: Hypotension and tachycardia, secondary to dehydration. Possible postobstructive pneumonia. Squamous cell lung cancer, with brain metastasis, status post chemoradiation. Significant thrombocytosis, secondary to malignancy. Weight loss, secondary to malignancy. No significant pleural effusion. Plan: Plan dated 05/01/2022. The patient's hoping to be discharged home. The patient's blood pressure stable. He's on room air. He feels back to normal. He has not been eating or drinking enough fluid. He was recently started on Marinol twice a day. Hopefully that will help his appetite. Labs, x-rays, and medications all reviewed. Ultrasound of the bilateral chest did not reveal any significant pleural effusion. Hence, thoracentesis was not necessary. Time with Patient: Less than 30
[2022-05-01] MEDS: ENOXAPARIN 40 MG/0.4 ML SYRINGE SQ SCH (17:35)
--- NOTE | 2022-05-01 23:40 | P.PN ---
Subjective Progress Note Date: 05/01/22 Patient is a 57-year-old male with a known history of lung cancer with mets to brain, hypertension, previous history of smoking who underwent chemotherapy about 3 weeks ago and currently undergoing radiation therapy was sent from radiation oncologist office where he was found to be short of breath, tachy cardic and hypotensive. Otherwise patient denied any complaints of fever or chills. No nausea vomiting or abdominal pain or diarrhea. Patient does have poor appetite with otherwise. Patient was recently hospitalized for pneumonia and was discharged with oral antibiotics. Patient was recently started on Marinol for appetite stimulation. Patient is currently awake alert and oriented. Denies any dysuria or hematuria. No cough or sputum production. Chest x-ray showed similar appearance of moderate right pleural effusion with right upper lobe airspace opacities. Overall exam is not significantly changed from recent study. EKG showed sinus tachycardia Patient was hypotensive with blood pressure 83/57 pulse is 140 respiration 24 and pulse ox 96% on room air on admission. Laboratory data showed WBC 21.4 hemoglobin 8.2 and platelets thousand 4 Sodium 139 potassium 4.5 chloride 97 bicarb is 27 BUN 15 and creatinine 0.81 blood sugar 117, AST 61 ALT 725 and alk phos 226 and troponin x1 negative and proBNP is 396 and procalcitonin level is 0.320 urinalysis negative. COVID-19 PCR influenza a and B nonreactive. 04/30/2022 Patient is currently resting in bed. Awake alert and oriented x3. Is alert. No complaints of headache or dizziness or lightheadedness. Blood pressure is in 120s. Saturating well on room air. No complaints of cough or sputum production. Ultrasound of the chest showed no significant pleural effusion.. Otherwise patient is being current on antibiotics of ceftriaxone and azithromycin. Laboratory data showed WBC 15.4 hemoglobin 10.6 and platelets 754 Sodium 136 potassium 3.5 chloride 105 bicarb is 23 BUN 6 and 0.60 Pulmonary is on board. Current medications reviewed. 05/01/2022 Patient is seen in follow-up this morning with pulmonary and oncology following. Treatment for lung cancer with mets to the brain currently on hold due to recent hospitalizations and will follow up in the clinic outpatient. No plan for thoracentesis at this time and is continued on room air. Oral intake is fair and needs encouragement and is continued on Marinol. Potassium is 3.0 today and will replace and recommend repeat labs in the am with possible discharge in 24 hours. Review of systems: Constitutional: No reports of fatigue, fever, or chills Cardiovascular: No reports of chest pain or palpitations Respiratory: No reports of worsening shortness of breath or cough GI: No reports of nausea, vomiting, or diarrhea : No reports of dysuria or retention Neurovascular: No reports of weakness or numbness All medications have been reviewed Active Medications Acetaminophen (Acetaminophen Tab 325 Mg Tab) 650 mg PO Q6HR PRN PRN Reason: Mild Pain or Fever > 100.5 Albuterol/Ipratropium (Ipratropium-Albuterol 3 Ml Neb) 3 ml INHALATION RT-QID PRN PRN Reason: Shortness Of Breath Or Wheezing Benzonatate (Benzonatate 100 Mg Cap) 100 mg PO TID PRN PRN Reason: Cough Dronabinol (Dronabinol 2.5 Mg Cap) 2.5 mg PO BID [facility] Last Admin: 05/01/22 08:47 Dose: 2.5 mg Enoxaparin Sodium (Enoxaparin 40 Mg/0.4 Ml Syringe) 40 mg SQ DAILY [facility] Last Admin: 04/30/22 19:57 Dose: Not Given Folic Acid (Folic Acid 1 Mg Tab) 1 mg PO DAILY [facility] Last Admin: 05/01/22 08:47 Dose: 1 mg Hydromorphone HCl (Hydromorphone 0.5 Mg/0.5 Ml Syringe) 0.5 mg IVP Q3HR PRN PRN Reason: Moderate Pain (Scale 4 to 6) Ceftriaxone Sodium 1 gm/ (Sodium Chloride) 50 mls @ 100 mls/hr IVPB Q24HR [facility]; Protocol Last Admin: 05/01/22 08:47 Dose: 100 mls/hr Sodium Chloride (Saline 0.9%) 1,000 mls @ 75 mls/hr IV .[id number] [facility] Last Admin: 05/01/22 06:32 Dose: Not Given Lactobacillus Acidoph/Bulgaricus (Lactobacillus Acidoph & Bulgar 1 Each Packet) 1 each PO BID [facility] Last Admin: 05/01/22 08:47 Dose: 1 each Miscellaneous Information (Potassium Replacement Protocol 1 Each Misc) 1 each MISCELLANE DAILY PRN; Protocol PRN Reason: Per Protocol Naloxone HCl (Naloxone 0.4 Mg/Ml 1 Ml Vial) 0.2 mg IV Q2M PRN PRN Reason: Opioid Reversal Ondansetron HCl (Ondansetron 4 Mg/2 Ml Vial) 4 mg IVP Q8HR PRN PRN Reason: Nausea And Vomiting Pantoprazole Sodium (Pantoprazole 40 Mg Tablet) 40 mg PO [id number] Last Admin: 05/01/22 06:30 Dose: 40 mg Physical exam: Patient is lying in the bed comfortably, no acute distress, awake alert and oriented.. morbidly obese HEENT: Normocephalic. Neck is supple. Pupils reactive. Nostrils clear. Oral cavity is moist. Neck reveals no JVD, carotid bruits, or thyromegaly. CHEST EXAMINATION: Trachea is central. Symmetrical expansion. Right basilar diminished sounds. No wheezing or rhonchi.. CARDIAC: Normal S1, S2 with no gallops. No murmurs ABDOMEN: Soft. Bowel sounds present. Nontender. No organomegaly. No abdominal bruits. Extremities: reveal no edema. No clubbing or cyanosis Neurologically awake, alert, oriented x3 with well-coordinated movements. No focal deficits noted Skin: No rash or skin lesions. Psychiatric: Cooperative. Non-suicidal, Musculoskeletal: No joint swelling or deformity. Normal range of motion. Assessment: Right upper lobe opacity due to possible pneumonia Hypotensive tachycardia could be due to decreased oral intake. Sepsis unlikley Moderate right pleural effusion as well chest x-ray.Ultrasound of the chest showed no significant pleural effusion. Lung cancer with mets to brain status post chemotherapy and currently undergoing radiation therapy. Significant thrombocytosis Poor appetite and oral intake History of COVID-19 infection 2020 Previous history of smoking DVT prophylaxis with Lovenox subcu and GI prophylaxis Plan: Patient is continued on antibiotics from home of ceftriaxone and azithromycin. Continue with IV hydration and follow-up blood cultures have been negative. Continue symptomatic management for nausea. Decrease the amount of IV hydration and replace electrolytes per protocol and follow up labs ordered. Pulmonary following due to moderate pleural effusion and chest ultrasound is not suggestive of thoracentesis at this time. Oncology following and recent treatment has been on hold due to recent hospitalizations and treatment of infectious process. Will follow up in the clinic Follow-up CBC and BMP tomorrow. Potassium is 3.0 today and replaced Encouraged oral intake Due to multiple complex medical issues, Prognosis is guarded at this time. Possible discharge in 24 hours. The impression and plan of care has been dictated by Morena Morataya, Nurse Practitioner as directed. Dr. Puja MD I have performed a history and examination and MDM of this patient, discussed the same with the dictator, and agree with the dictator's assessment and plan as written ,documented as a scribe. Based on total visit time, I have performed more than 50% of the visit. Objective - Vital Signs Vital signs: Vital Signs Temp 98.0 F 05/01/22 12:00 Pulse 95 05/01/22 12:00 Resp 18 05/01/22 12:00 BP 114/67 05/01/22 12:00 Pulse Ox 96 05/01/22 12:00 FiO2 Intake & Output 04/30/22 05/01/22 05/01/22 18:59 06:59 18:59 Intake Total 355 480 236 Balance 355 480 236 Intake: Oral 355 480 236 Other: Voiding Method Toilet Toilet Toilet # Voids 2 2 - Labs CBC & Chem 7: 05/01/22 06:26 05/01/22 06:26 Labs: Abnormal Lab Results - Last 24 Hours (Table) 04/30/22 04/30/22 05/01/22 Range/Units 07:57 07:57 06:26 WBC 14.9 H (3.8-10.6) k/uL RBC 2.93 L (4.30-5.90) m/uL Hgb 7.5 L (13.0-17.5) gm/dL Hct 25.1 L (39.0-53.0) % MCHC 29.8 L (31.0-37.0) g/dL RDW 17.6 H (11.5-15.5) % Plt Count 776 H (150-450) k/uL Neutrophils # 13.3 H (1.3-7.7) k/uL Lymphocytes # 0.8 L (1.0-4.8) k/uL Sodium (137-145) mmol/L Potassium (3.5-5.1) mmol/L BUN (9-20) mg/dL Creatinine (0.66-1.25) mg/dL Calcium (8.4-10.2) mg/dL Iron 17 L (65-175) ug/dL TIBC 141 L (228-460) ug/dL % Saturation 11.88 L (15.00-50.00) Transferrin 101.0 L (204.0-354.0) mg/dL Ferritin 3681.0 H (22.0-322.0) ng/mL Vitamin B12 >2000.0 H (200.0-944.0) pg/mL Folate 4.30 L (4.40-31.00) ng/mL 05/01/22 Range/Units 06:26 WBC (3.8-10.6) k/uL RBC (4.30-5.90) m/uL Hgb (13.0-17.5) gm/dL Hct (39.0-53.0) % MCHC (31.0-37.0) g/dL RDW (11.5-15.5) % Plt Count (150-450) k/uL Neutrophils # (1.3-7.7) k/uL Lymphocytes # (1.0-4.8) k/uL Sodium 136 L (137-145) mmol/L Potassium 3.0 L (3.5-5.1) mmol/L BUN 5 L (9-20) mg/dL Creatinine 0.60 L (0.66-1.25) mg/dL Calcium 7.4 L (8.4-10.2) mg/dL Iron (65-175) ug/dL TIBC (228-460) ug/dL % Saturation (15.00-50.00) Transferrin (204.0-354.0) mg/dL Ferritin (22.0-322.0) ng/mL Vitamin B12 (200.0-944.0) pg/mL Folate (4.40-31.00) ng/mL Microbiology - Last 24 Hours (Table) 04/28/22 17:35 Blood Culture - Preliminary Blood No Growth after 48 hours 04/28/22 17:40 Blood Culture - Preliminary Blood No Growth after 48 hours
[2022-05-02] MEDS: PANTOPRAZOLE 40 MG TABLET PO SCH (06:36)
[2022-05-02] MEDS: FOLIC ACID 1 MG TAB PO SCH (07:59)
[2022-05-02] MEDS: ENOXAPARIN 40 MG/0.4 ML SYRINGE SQ SCH (08:12)
[2022-05-02] MEDS: LACTOBACILLUS ACIDOPH & BULGAR 1 EACH PACKET PO SCH (08:12)
[2022-05-02 08:42] LABS: Anisocytosis Slight; Basophils # (A) 0.1 k/uL (0-0.2); Basophils % (A) 1 %; Eosinophils % (A) 0 %; HCT 26.3 % (39.0-53.0); HGB 7.9 gm/dL (13.0-17.5); Hypochromasia Marked; Lymphocytes # (A) 0.7 k/uL (1.0-4.8); Lymphocytes % (A) 5 %; MCH 26.3 pg (25.0-35.0); MCHC 30.1 g/dL (31.0-37.0); MCV 87.4 fL (80.0-100.0); Mean Platelet Volume 7.1; Monocytes # (A) 0.5 k/uL (0-1.0); Monocytes % (A) 4 %; Neutrophils # (A) 10.7 k/uL (1.3-7.7); Neutrophils % (A) 88 %; Platelet Count 649 k/uL (150-450); Poikilocytosis Slight; RBC 3.01 m/uL (4.30-5.90); RDW 17.9 % (11.5-15.5); WBC 12.2 k/uL (3.8-10.6)
[2022-05-02 09:07] LABS: African American GFR (CKD) >90 (>60 ml/min/1.73 sqM); Anion Gap 9 mmol/L; Blood Urea Nitrogen 3 mg/dL (9-20); Calcium 7.2 mg/dL (8.4-10.2); Carbon Dioxide 26 mmol/L (22-30); Chloride 101 mmol/L (98-107); Glucose 126 mg/dL (74-99); Non-African American GFR(CKD) >90 (>60 ml/min/1.73 sqM); Potassium 3.1 mmol/L (3.5-5.1); Sodium 136 mmol/L (137-145)
[2022-05-02] MEDS: POTASSIUM CHLORIDE ER 20 MEQ TAB.ER PO SCH ×3 (10:45→13:30)
[2022-05-02 11:58] VITALS: BP 109/68; PULSE 111; RESP 17; TEMP 97.8
--- NOTE | 2022-05-02 12:19 | P.PN ---
Subjective Progress Note Date: 05/02/22 Principal diagnosis: Hypotension. This is a 57-year-old white male with history of squamous cell lung cancer, this was diagnosed back on 02/16/22 this was diagnosed by Dr. Huynh were in he found a endobronchial right bronchus intermedius tumor, biopsy results came back positive for squamous cell lung cancer. Patient was also diagnosed as having brain metastasis, patient underwent radiation therapy to the brain, he also underwent chemotherapy with carboplatinum and etoposide, last on 04/03/22, and his chemotherapy was placed on hold recently because of pneumonia. Patient was seen by radiation oncology and he was found to have shortness of breath, hypotension, and tachycardia, patient had very poor oral intake, hence he was advised to go to the ER. A shunt was admitted mostly with dehydration, chest x- ray and CT of the chest showed significant consolidation in the right lower lobe and possible right-sided pleural effusion however ultrasound did not show much of an effusion to consider thoracentesis. Considering the findings, this consult was initially. In the meantime the patient is receiving IV fluids for profound dehydration on his initial presentation, and he seems to be doing much better at present. On admission the patient was found to have leukocytosis with WBC count of 21.5 hemoglobin 8.2 elevated platelets, electrolytes were basically unremarkable. Pro-calcitonin was 0.32. Patient had negative screening for COVID-19. During my evaluation today, the patient is feeling better, denies any cough wheezing or shortness of breath, denies any chest pain, patient is receiving IV fluid at 1 50 mL per hour. Progress note dated 05/01/2022. 57-year-old male with history of lung cancer. He was diagnosed in January of this year by my partner. The patient has metastatic disease, to the brain, and did have whole brain radiation. In addition, he underwent chemotherapy. The patient was admitted with a diagnosis of hypotension and dehydration. The patient was seen by my partner in consultation yesterday. Currently, his blood pressure is normal. He is getting saline at 75 mL an hour. He's on room air. He is hoping to be discharged home today. Laboratory data includes a white count of 14.9, hemoglobin 7.5, hematocrit 25.1, and a platelet count of 776,000. Sodium 136, potassium 3, chlorides 102, CO2 26, BUN 5, creatinine 0.6. Chest u ltrasound was negative for any significant fluid. Progress note dated 05/02/2022. 57-year-old male with a history of lung cancer. He was diagnosed in January by my partner. The patient unfortunately has metastatic disease to the brain. He did have radiation to the brain. He also underwent chemotherapy. Currently, he is doing well. He was readmitted to the hospital with a diagnosis of hypotension, secondary to dehydration. The patient was seen by my partner in consultation on April 30. Currently he is stable, and a my opinion, to be discharged home. White count 12.2, hemoglobin 7.9, hematocrit 26.8, and platelet count 649,000. Sodium 136, potassium 3.1, chlorides 101, CO2 26, BUN 3, creatinine 0.55. Objective - Vital Signs Vital signs: Vital Signs Temp 97.8 F 05/02/22 11:57 Pulse 111 H 05/02/22 11:57 Resp 17 05/02/22 11:57 BP 109/68 05/02/22 11:57 Pulse Ox 96 05/02/22 11:57 FiO2 Intake & Output 05/01/22 05/02/22 05/02/22 18:59 06:59 18:59 Intake Total 236 75 118 Balance 236 75 118 Intake: Intake, IV Titration 75 Amount Sodium Chloride 0.9% 1, 75 000 ml @ 20 mls/hr IV . Q24H [facility] Rx#:[id number] Oral 236 118 Other: Voiding Method Toilet Toilet # Voids 2 - Exam No acute distress, oriented 3. Currently on room air. No respiratory distress. HEENT examination is grossly unremarkable. Neck supple. Full range of motion. No adenopathy thyromegaly or neck vein distention. Cardiovascular examination reveals regular rhythm rate. S1-S2 normal. No S3 or S4. No discernible murmur noted. Heart rate 89 bpm. Lungs reveal scattered bilateral rhonchi. No wheezes. No crackles. Breath sounds equal bilaterally. Room air saturation is 96% Abdomen soft bowel sounds are heard. No masses or tenderness. Extremities are intact. No cyanosis clubbing or edema. Skin is without rash or lesion. Neurologic examination is brief but nonfocal. - Labs CBC & Chem 7: 05/02/22 07:38 05/02/22 07:38 Labs: Abnormal Lab Results - Last 24 Hours (Table) 05/02/22 05/02/22 Range/Units 07:38 07:38 WBC 12.2 H (3.8-10.6) k/uL RBC 3.01 L (4.30-5.90) m/uL Hgb 7.9 L (13.0-17.5) gm/dL Hct 26.3 L (39.0-53.0) % MCHC 30.1 L (31.0-37.0) g/dL RDW 17.9 H (11.5-15.5) % Plt Count 649 H (150-450) k/uL Neutrophils # 10.7 H (1.3-7.7) k/uL Lymphocytes # 0.7 L (1.0-4.8) k/uL Sodium 136 L (137-145) mmol/L Potassium 3.1 L (3.5-5.1) mmol/L BUN 3 L (9-20) mg/dL Creatinine 0.55 L (0.66-1.25) mg/dL Glucose 126 H (74-99) mg/dL Calcium 7.2 L (8.4-10.2) mg/dL Microbiology - Last 24 Hours (Table) 04/28/22 17:35 Blood Culture - Preliminary Blood No Growth after 72 hours 04/28/22 17:40 Blood Culture - Preliminary Blood No Growth after 72 hours Assessment and Plan Assessment: Hypotension and tachycardia, secondary to dehydration. Possible postobstructive pneumonia. Squamous cell lung cancer, with brain metastasis, status post chemoradiation. Significant thrombocytosis, secondary to malignancy. Weight loss, secondary to malignancy. No significant pleural effusion. Plan: Plan dated 05/01/2022. The patient's hoping to be discharged home. The patient's blood pressure stable. He's on room air. He feels back to normal. He has not been eating or drinking enough fluid. He was recently started on Marinol twice a day. Hopefully that will help his appetite. Labs, x-rays, and medications all reviewed. Ultrasound of the bilateral chest did not reveal any significant pleural effusion. Hence, thoracentesis was not necessary. Plan dated 05/02/2022. The patient remains on room air. He's not receiving any IV fluids. The patient's labs are reviewed. Potassium is just a bit low. In my opinion, the patient is a candidate for possible discharge. No additional recommendations are made. He was recently started on Marinol, twice a day for decreased appetite. Another option for him would be Megace. His overall prognosis remains guarded. Time with Patient: Less than 30
--- NOTE | 2022-05-02 18:32 | P.PN ---
Subjective Progress Note Date: 05/02/22 Principal diagnosis: dehydration, generalized weakness In follow-up today patient states feeling pretty good, he is anticipating being discharged. He is tolerating oral intake, denies any bleeding or pain. He is able to ambulate independently, denies chest pain or palpitations. Objective - Vital Signs Vital signs: Vital Signs Temp 97.8 F 05/02/22 11:57 Pulse 111 H 05/02/22 11:57 Resp 17 05/02/22 11:57 BP 109/68 05/02/22 11:57 Pulse Ox 96 05/02/22 11:57 FiO2 Intake & Output 05/01/22 05/02/22 05/02/22 18:59 06:59 18:59 Intake Total 236 75 118 Balance 236 75 118 Intake: Intake, IV Titration 75 Amount Sodium Chloride 0.9% 1, 75 000 ml @ 20 mls/hr IV . Q24H REPLACED BY [facility] Rx#:[id number] Oral 236 118 Other: Voiding Method Toilet Toilet # Voids 2 - Constitutional General appearance: Present: average body habitus, cooperative, no acute distress - EENT Eyes: Present: anicteric sclerae, EOMI ENT: Present: hearing grossly normal - Respiratory Details: respirations even and unlabored - Cardiovascular Details: radial pulses 2+, regular rate and rhythm Rhythm: regular - Peripheral edema leg Peripheral Edema: bilateral: None - Integumentary Integumentary: Present: normal - Neurologic Neurologic: Present: CNII-XII intact - Musculoskeletal Musculoskeletal: Present: strength equal bilaterally - Psychiatric Psychiatric: Present: A&O x's 3, appropriate affect, intact judgment & insight - Labs CBC & Chem 7: 05/02/22 07:38 05/02/22 07:38 Labs: Abnormal Lab Results - Last 24 Hours (Table) 05/02/22 05/02/22 Range/Units 07:38 07:38 WBC 12.2 H (3.8-10.6) k/uL RBC 3.01 L (4.30-5.90) m/uL Hgb 7.9 L (13.0-17.5) gm/dL Hct 26.3 L (39.0-53.0) % MCHC 30.1 L (31.0-37.0) g/dL RDW 17.9 H (11.5-15.5) % Plt Count 649 H (150-450) k/uL Neutrophils # 10.7 H (1.3-7.7) k/uL Lymphocytes # 0.7 L (1.0-4.8) k/uL Sodium 136 L (137-145) mmol/L Potassium 3.1 L (3.5-5.1) mmol/L BUN 3 L (9-20) mg/dL Creatinine 0.55 L (0.66-1.25) mg/dL Glucose 126 H (74-99) mg/dL Calcium 7.2 L (8.4-10.2) mg/dL Microbiology - Last 24 Hours (Table) 04/28/22 17:35 Blood Culture - Preliminary Blood No Growth after 72 hours 04/28/22 17:40 Blood Culture - Preliminary Blood No Growth after 72 hours Assessment and Plan (1) Sinus tachycardia Status: Acute Priority: High Code(s): R00.0 - TACHYCARDIA, UNSPECIFIED SNOMED Code(s): 54705049 (2) Generalized weakness Status: Acute Priority: High Code(s): R53.1 - WEAKNESS SNOMED Code(s): 71490470 (3) Dehydration Status: Acute Priority: High Code(s): E86.0 - DEHYDRATION SNOMED Code(s): 44107648 (4) Lung cancer Status: Acute Priority: Medium Code(s): C34.90 - MALIGNANT NEOPLASM OF UNSP PART OF UNSP BRONCHUS OR LUNG SNOMED Code(s): 637828747 Plan: Patient presenting symptoms have significantly improved with hydration. Started on folic acid for folate deficiency found on anemia workup. Hemoglobin is stable at 7.9 today. Patient complains of not being able to swallow potassium pills, have changed it to the 10 mEq tablet, which is smaller, patient will take 2 tablets, twice a day. Prescription sent to his preferred pharmacy. Patient requested port placement due to multiple needle sticks and unsuccessful IV attempts. This will be scheduled for him outpatient. He has a follow-up with his Primary Oncologist next week. Anticipate plans to resume treatment after completion of antibiotics.
--- NOTE | 2022-05-04 15:33 | P.DS ---
Providers Date of admission: 05/01/22 13:01 Expected date of discharge: 05/02/22 Attending physician: Antwan Lara Consults: 04/28/22 20:17 Consult Physician Routine Consulting Provider: Mark Dent Consult Reason/Comments: Abnormal labs (Leukocytosis, Thrombocytosis)- Neupogen Do you want consulting provider notified?: Yes, Notify in am 04/29/22 15:58 Consult Physician Routine Consulting Provider: Gómez Hamm Consult Reason/Comments: pleural effusion Do you want consulting provider notified?: Yes Primary care physician: Leigh Ann Mcclure Hospital Course: Final diagnosis Right upper lobe opacity due to possible pneumonia Hypotensive tachycardia could be due to decreased oral intake. Sepsis unlikely Moderate right pleural effusion Ultrasound of the chest showed no significant pleural effusion. Lung cancer with mets to brain status post chemotherapy and currently undergoing radiation therapy. Significant thrombocytosis Poor appetite and oral intake History of COVID-19 infection 2020 Previous history of smoking DVT prophylaxis Discharge disposition Patient is being discharged in a stable condition with guarded prognosis to home. Patient will follow-up with Dr. Mcclure in the outpatient setting upon discharge. Patient is to follow-up with oncology as scheduled. Patient will continue on oral Ceftin 500 mg twice daily for the next 1 week. Total time t aken is greater than 35 minutes. Hospital course This is a 57-year-old male who was recently admitted with increased weakness shortness and hypotension. Patient was being closely monitored with pulmonary and oncology following. Patient chest x-ray showed moderate right pleural effusion with right upper lobe airspace opacification is and had been maintained on antibiotics. Patient was recently hospitalized for pneumonia and discharged home on antibiotics. Patient's treatments are currently on hold given this recent infection although patient feels improved today and like to go home. Patient's potassium being chased and recommend continuing with supplements and close monitoring. Patient to follow-up with oncology in the outpatient setting on discharge. Currently no reports of chest pain, shortness of breath, or palpitations. Patient is afebrile. No reports of nausea or vomiting and patient is tolerating diet. Patient will be discharged home today. Guarded prognosis. Physical exam: Gen: This is a 57-year-old male awake, alert and oriented 3, well-developed, well-nourished, morbidly obese. HEENT: Head is atraumatic, normocephalic. Pupils equal, round. Sclerae is anicteric. NECK: Supple. No JVD. No lymphadenopathy. No thyromegaly. LUNGS: Diminished breath sounds bilaterally with some scattered rhonchi. No intercostal retractions. HEART: Regular rate and rhythm. No murmur. ABDOMEN: Soft. Bowel sounds are present. No masses. No tenderness. EXTREMITIES: No pedal edema. No calf tenderness. NEUROLOGICAL: Patient is awake, alert and oriented x3. Cranial nerves 2 through 12 are grossly intact. Please refer to medication reconciliation sheet for a list of medications. The impression and plan of care has been dictated by Nurse Kendall Prac titioner as directed. Dr. Marcelino MD I have performed a history and examination and MDM of this patient, discussed the same with the dictator, and agree with the dictator's assessment and plan as written ,documented as a scribe. Based on total visit time, I have performed more than 50% of the visit. Patient Condition at Discharge: Fair Plan - Discharge Summary Discharge Rx Participant: Yes New Discharge Prescriptions: New Folic Acid 1 mg PO DAILY 30 Days #30 tab cefUROXime axetiL [Ceftin] 500 mg PO BID 7 Days #14 tab Continue Loperamide [Imodium] 2 mg PO BID PRN #60 cap PRN Reason: Diarrhea Acetaminophen Tab [Tylenol] 650 mg PO Q6HR PRN tab PRN Reason: Mild Pain Or Fever > 100.5 ondansetron HCL [Zofran] 8 mg PO Q8H PRN PRN Reason: Nausea Benzonatate [Tessalon Perles] 100 mg PO TID PRN PRN Reason: Cough Ipratropium-Albuterol Nebulize [Duoneb 0.5 mg-3 mg/3 ml Soln] 3 ml INHALATION RT-TID 30 Days #120 each Ipratropium-Albuterol Nebulize [Duoneb 0.5 mg-3 mg/3 ml Soln] 3 ml INHALATION RT-TID PRN each PRN Reason: Shortness Of Breath Or Wheezing Potassium Chloride ER [K-Dur 20] 20 meq PO BID 30 Days #60 tab dronabinoL [Marinol] 2.5 mg PO BID Lactobacillus Acidoph & Bulgar [Lactinex] 1 packet PO 0600,1700 Cephalexin [Keflex] 500 mg PO Q6H Discharge Medication List Benzonatate [Tessalon Perles] 100 mg PO TID PRN 04/09/22 [History] ondansetron HCL [Zofran] 8 mg PO Q8H PRN 04/09/22 [History] Acetaminophen Tab [Tylenol] 650 mg PO Q6HR PRN tab 04/15/22 [Rx] Ipratropium-Albuterol Nebulize [Duoneb 0.5 mg-3 mg/3 ml Soln] 3 ml INHALATION RT-TID 30 Days #120 each 04/15/22 [Rx] Ipratropium-Albuterol Nebulize [Duoneb 0.5 mg-3 mg/3 ml Soln] 3 ml INHALATION RT-TID PRN each 04/15/22 [Rx] Loperamide [Imodium] 2 mg PO BID PRN #60 cap 04/15/22 [Rx] Potassium Chloride ER [K-Dur 20] 20 meq PO BID 30 Days #60 tab 04/15/22 [Rx] Cephalexin [Keflex] 500 mg PO Q6H 04/28/22 [History] Lactobacillus Acidoph & Bulgar [Lactinex] 1 packet PO 0600,1700 04/28/22 [History] dronabinoL [Marinol] 2.5 mg PO BID 04/28/22 [History] Folic Acid 1 mg PO DAILY 30 Days #30 tab 05/02/22 [Rx] cefUROXime axetiL [Ceftin] 500 mg PO BID 7 Days #14 tab 05/02/22 [Rx] Follow up Appointment(s)/Referral(s): Leigh Ann Mcclure III, MD [Primary Care Provider] - 05/08/22 4:30 pm Mark Dent MD [STAFF PHYSICIAN] - 05/09/22 2:30 pm Activity/Diet/Wound Care/Special Instructions: Activity Limited until follow-up Continue with antibiotics until finished Continue potassium supplements and recommend follow-up labs Follow-up oncology as scheduled Continue current diet Discharge Disposition: HOME SELF-CARE
== END 2022-05-02 14:21 | disposition home or self-care (01) | DRG 194 ==
LOC: EC 15:38 → 3SCARD 18:30 → OBSVTOIN 05-01 13:01
PROVIDERS: ADMIT Hospitalist; ATTEND Hospitalist
DX: J18.9 Pneumonia, unspecified organism (principal); C34.90 Malignant neoplasm of unspecified part of unspecified bronchus or lung; C79.31 Secondary malignant neoplasm of brain; J90 Pleural effusion, not elsewhere classified; Z20.822 Contact with and (suspected) exposure to COVID-19; J43.9 Emphysema, unspecified; I95.9 Hypotension, unspecified; T45.1X5A Adverse effect of antineoplastic and immunosuppressive drugs, initial encounter; E86.0 Dehydration; D64.81 Anemia due to antineoplastic chemotherapy; D75.838 Other thrombocytosis; I10 Essential (primary) hypertension; D52.9 Folate deficiency anemia, unspecified; Z92.3 Personal history of irradiation; R00.0 Tachycardia, unspecified; D75.839 Thrombocytosis, unspecified; R63.0 Anorexia; Z86.16 Personal history of COVID-19; Z87.891 Personal history of nicotine dependence; Z87.01 Personal history of pneumonia (recurrent); Z80.0 Family history of malignant neoplasm of digestive organs; X58.XXXA Exposure to other specified factors, initial encounter; Z90.49 Acquired absence of other specified parts of digestive tract
CPT/HCPCS: 36415; 71046; 76604; 80048; 80053; 81001; 82607; 82728; 82746; 83540; 83550; 83605; 83735; 83880; 84145; 84443; 84484; 85025; 85610; 85730; 87040; 87502; 87635; 93005; 94760

== ENCOUNTER → 2022-05-20 | Outpatient (CLI) | payer BC ==
--- NOTE | 2022-05-21 10:16 | PE ---
EXAMINATION TYPE: PET CT fusion skull to thigh DATE OF EXAM: 05/20/2022 CLINICAL INDICATION:Male, 57 years old with history of C34.11 Lung CA; TECHNIQUE: Following the intravenous administration of 10.8 mCi of F-18 FDG, whole body images a re performed from the skull base to the midthigh. Images are reviewed on the computer in the coronal , axial, and sagittal planes. Reconstructed rotating images are created on independent workstation a nd reviewed on the computer. A non-contrast CT is performed in conjunction with the PET scan. Gluco se level 118 mg/dL COMPARISON: CT 02/15/2022, PET/CT 7022, FINDINGS: Mediastinal SUV mean is 1.1. Hepatic parenchyma SUV mean is 1.8. SKULL BASE AND NECK: No suspicious FDG activity. CHEST, MEDIASTINUM, AND HILAR REGION: * Primary mass seen on prior has decreased in size now with surrounding consolidation changes limiti ng measurements. There is diffuse low-level FDG activity within the collapsed lung on the right. Max SUV 7.6. * Prevascular space lymph node max SUV 1.7 measuring 9 mm in short axis. ABDOMEN AND PELVIS: * Scattered foci of increased radiotracer uptake is seen within the liver which is suboptimally eval uated without IV contrast. * Right hepatic lobe segment 4A Max SUV 10.9, previously 9.2 and new additional smaller deposit in s egment 4A max SUV 6 7. * Additional new areas within segment 7 Max SUV 7.5. * New Left adrenal gland focus of FDG activity slight nodular contour measuring 14 x 8 mm with axis SUV 3.6. * Indeterminate focus near the pancreatic head max SUV 3.2 unclear what this correlates to on CT nayana ging. OSSEOUS STRUCTURES: No suspicious FDG activity. OTHER CT: Atherosclerosis of the arterial vasculature. No gallbladder surgically absent. Right renal cyst measuring up to 7.2 cm. Left renal cysts measuring up to 3.4 cm. Scattered clonic diverticula. IMPRESSION: Mixed response to therapy with decrease in FDG activity within the primary mass within the lung. Ther e is now consolidative changes within the right lung with suspected superimposed infection/atelectasi s. Additionally there are new foci of metabolic activity within the liver and left adrenal gland susp icious for progression of metastatic disease.
== END | disposition home or self-care (01) ==
LOC: RADPETMAIN 08:22
PROVIDERS: ATTEND Internal Medicine Hematology & Oncology
DX: C34.11 Malignant neoplasm of upper lobe, right bronchus or lung (principal)
CPT/HCPCS: 78815; A9552

== ENCOUNTER → 2022-05-22 | Outpatient (CLI) | payer BC ==
--- NOTE | 2022-05-22 14:13 | MR ---
EXAMINATION TYPE: MR brain wo/w con DATE OF EXAM: 05/22/2022 COMPARISON: NONE HISTORY: SECONDARY MALIGNANT NEOPLASM OF BRAIN. Lung cancer. TECHNIQUE: Multiplanar, multisequence images of the brain and brainstem is performed without and with IV contras t, utilizing 6 mL intravenous Gadavist . FINDINGS: Diffusion weighted images demonstrate no evidence of a recent infarct or other diffusion ab normality. Mild ventricular and sulcal prominence. Some scattered foci of T2 hyperintensity are seen throughout the white matter bilaterally. Approximately 15 scattered small lesions are seen. Midline structures demonstrate normal morphology. The craniocervical junction appears within normal limits. Postcontrast images show evidence of metastatic disease with ring-enhancing 6 mm left frontal lobe le miguel axial image 96 and 11 mm superior ring-enhancing lesion left frontal lobe axial image 126. There is 4 mm ring-enhancing focus inferior right frontal lobe axial image 83. There is 2 mm suspicious fo cus of round enhancement right frontal subcortical level axial image 130. The dural venous sinuses appear patent. Nasal septum slightly deviated to left of midline. The globes are intact bilaterally. Visualized paranasal sinuses are grossly clear. IMPRESSION: Evidence of metastatic disease with at least 4 enhancing metastatic lesions noted as deta iled above.
== END | disposition home or self-care (01) ==
LOC: RADMRIMAIN 13:13
PROVIDERS: ATTEND Radiology Radiation Oncology
DX: C79.31 Secondary malignant neoplasm of brain (principal)
CPT/HCPCS: 70553; A9585

== ENCOUNTER 2022-05-26 13:21 | Day surgery (SDC) | payer BC ==
[2022-05-26] MEDS ORDERED: LACTATED RINGERS 1,000 ML IV ONE (14:08)
[2022-05-26] MEDS ORDERED: HEPARIN SODIUM,PORCINE/PF 5,000 UNIT/0.5 ML SYRINGE SQ ONE (14:11)
[2022-05-26] MEDS ORDERED: ACETAMINOPHEN TAB 500 MG TAB ONE (14:11)
[2022-05-26 14:24] LABS: Anisocytosis Slight; Basophils # (A) 0.1 k/uL (0-0.2); Basophils % (A) 1 %; Eosinophils # (A) 0.2 k/uL (0-0.7); Eosinophils % (A) 2 %; HCT 32.8 % (39.0-53.0); Hypochromasia Marked; Lymphocytes # (A) 1.6 k/uL (1.0-4.8); Lymphocytes % (A) 14 %; MCH 25.6 pg (25.0-35.0); MCHC 30.4 g/dL (31.0-37.0); MCV 84.2 fL (80.0-100.0); Monocytes # (A) 0.5 k/uL (0-1.0); Monocytes % (A) 4 %; Neutrophils # (A) 8.9 k/uL (1.3-7.7); Neutrophils % (A) 79 %; Platelet Count 713 k/uL (150-450); WBC 11.4 k/uL (3.8-10.6)
[2022-05-26] MEDS ORDERED: ONDANSETRON 4 MG/2 ML VIAL ONE (14:29)
[2022-05-26] MEDS ORDERED: DEXAMETHASONE SOD PHOSPHATE 4 MG/ML 1 ML VIAL IV ONE (14:34)
[2022-05-26] MEDS ORDERED: SUCCINYLCHOLINE CHLORIDE 200 MG/10 ML VIAL IV ONE (15:30)
[2022-05-26] MEDS ORDERED: ePHEDrine 50 MG/ML 1 ML VIAL ONE (15:30)
[2022-05-26] MEDS ORDERED: PROPOFOL 10 MG/ML 20 ML VIAL IV ONE (15:30)
[2022-05-26] MEDS ORDERED: fentaNYL (PF) 50 MCG/ML 2 ML AMP ONE (15:30)
[2022-05-26] MEDS ORDERED: MIDAZOLAM 2 MG/2 ML VIAL ONE (15:30)
[2022-05-26] MEDS ORDERED: PHENYLEPHRINE-0.9% NACL SYG 1,000 MCG/10 ML SYRINGE ONE (15:30)
[2022-05-26] MEDS ORDERED: LIDOCAINE 2% INJ 20 MG/ML (2 ML VIAL) ONE (15:30)
[2022-05-26] MEDS ORDERED: HYDROmorphone (PF) 1 MG/ML ONE (15:30)
--- NOTE | 2022-05-26 15:31 | P.GSHP ---
History of Present Illness H&P Date: 05/26/22 Chief Complaint: Lung cancer 57-year-old male diagnosed with lung cancer several months ago. He has been undergoing chemotherapy. Recently having more trouble with IV access. Here for Port-A-Cath placement. He has not had one previously. Past Medical History Past Medical History: Cancer, COPD, Hypertension Additional Past Medical History / Comment(s): Hx Covid 11/2020. Some emphysema. Cancer to lungs and mets to brain-chemo and radiation most recent chemo and radiation 03/2022. Stage 4 lung cancer hx of anemia History of Any Multi-Drug Resistant Organisms: None Reported Past Surgical History: Cholecystectomy Additional Past Surgical History / Comment(s): DENTAL IMPLANTS WITH ANESTHESIA,. Past Anesthesia/Blood Transfusion Reactions: No Reported Reaction Smoking Status: Former smoker - Past Family History Father Family Medical History: Cancer Additional Family Medical History / Comment(s): pancreatic cancer Medications and Allergies Home Medications Medication Instructions Recorded Confirmed Type Benzonatate [Tessalon Perles] 100 mg PO TID PRN 04/09/22 05/24/22 History ondansetron HCL [Zofran] 8 mg PO Q8H PRN 04/09/22 05/24/22 History Acetaminophen Tab [Tylenol] 650 mg PO Q6HR PRN tab 04/15/22 05/24/22 Rx Ipratropium-Albuterol Nebulize 3 ml INHALATION RT-TID 30 Days 04/15/22 05/24/22 Rx [Duoneb 0.5 mg-3 mg/3 ml Soln] #120 each Loperamide [Imodium] 2 mg PO BID PRN #60 cap 04/15/22 05/24/22 Rx Potassium Chloride ER [K-Dur 20] 20 meq PO BID 30 Days #60 tab 04/15/22 05/24/22 Rx dronabinoL [Marinol] 2.5 mg PO BID 04/28/22 05/24/22 History Folic Acid 1 mg PO DAILY 30 Days #30 tab 05/02/22 05/24/22 Rx Allergies Allergy/AdvReac Type Severity Reaction Status Date / Time No Known Allergies Allergy Verified 05/24/22 09:31 Surgical - Exam Vital Signs Temp Pulse Resp BP Pulse Ox 97.0 F L 119 H 16 117/69 99 05/26/22 14:01 05/26/22 14:01 05/26/22 14:01 05/26/22 14:01 05/26/22 14:01 Physical exam: General: Well-developed, malnourished appearing HEENT: Normocephalic, sclerae nonicteric Abdomen: Nontender, nondistended Extremities: No edema Neuro: Alert and oriented Results - Labs 05/26/22 14:10 Abnormal Lab Results - Last 24 Hours (Table) 05/26/22 Range/Units 14:10 WBC 11.4 H (3.8-10.6) k/uL RBC 3.90 L (4.30-5.90) m/uL Hgb 10.0 L D (13.0-17.5) gm/dL Hct 32.8 L (39.0-53.0) % MCHC 30.4 L (31.0-37.0) g/dL RDW 16.0 H (11.5-15.5) % Plt Count 713 H (150-450) k/uL Neutrophils # 8.9 H (1.3-7.7) k/uL Assessment and Plan (1) Lung cancer Narrative/Plan: 57-year-old male with lung cancer. We'll proceed with Port-A-Cath placement at this time. Risks of bleeding, infection, DVT, pneumothorax, catheter malfunction, anesthesia related complications were discussed. The patient understands and wishes to proceed. Current Visit: No Status: Acute Priority: Medium Code(s): C34.90 - MALIGNANT NEOPLASM OF UNSP PART OF UNSP BRONCHUS OR LUNG SNOMED Code(s): 813126017
[2022-05-26] MEDS ORDERED: LIDOCAINE 1% INJ 10MG/ML (20 ML MDV) SQ ONE ×2 (16:02)
[2022-05-26] MEDS ORDERED: HYDROcodone/APAP 5-325MG 1 EACH TAB PO PRN (16:25)
[2022-05-26] MEDS ORDERED: NALOXONE 0.4 MG/ML 1 ML VIAL IV PRN (16:25)
--- NOTE | 2022-05-26 16:27 | P.OP ---
Date of Procedure: 05/26/22 Procedure(s) Performed: PREOPERATIVE DIAGNOSIS: Lung cancer POSTOPERATIVE DIAGNOSIS: Same PROCEDURE: Port-A-Cath placement with fluoroscopic and ultrasound guidance SURGEON: Bienvenido EBL: Minimal ANESTHESIA: General COMPLICATIONS: None OPERATIVE PROCEDURE: Patient was brought and placed on the operative table in the supine position. The patient was sedated per anesthesia that time. The chest and neck were prepped and draped in usual sterile fashion. The ultrasound probe was used to identify the location of the right internal jugular vein. The skin was localized with lidocaine. The Seldinger needle was advanced into the IJ under ultrasound guidance. The wire was advanced through the needle under f luoroscopic guidance into the superior vena cava. A port pocket was created in the right infraclavicular location. The catheter was tunneled from the wire entrance site to the port pocket. The port was then connected to the catheter. The dilator introducer was threaded over the guidewire. The guidewire and dilator were then removed. The catheter was advanced through the introducer and introducer was then removed. The tip was seen to be in the right atrial junction via fluoroscopy. A picture of the radiograph showing the tip at the radial digital junction was taken. Port was flushed with both saline and a Hep- Lock solution. There was good flow both in and out of the port. The port was sutured in underlying tissues using 3-0 silk sutures. The subcutaneous tissues were reapproximated using 3-0 Vicryl sutures and the skin at both locations using 4-0 Monocryl sutures. Skin glue and sterile dressings then applied. DISPOSITION: Stable to recovery room
[2022-05-26 16:41] VITALS: TEMP 97.6
[2022-05-26 17:05] VITALS: RESP 18
--- NOTE | 2022-05-26 17:28 | XR ---
EXAMINATION TYPE: XR chest 1V confirm line [facility] DATE OF EXAM: 05/26/2022 COMPARISON: NONE HISTORY: Pneumonia TECHNIQUE: Single view FINDINGS: There is marked elevation of the right diaphragm. There is atelectasis right lung base. The re is some minimal atelectasis medial left lower lobe. No heart failure seen. There is a right centra l venous catheter with tip in the superior vena cava. IMPRESSION: Chronic elevated right diaphragm with right pleural effusion and right lower lobe atelect asis. There is some new mild atelectasis left lower lobe compared to old exam. Right lung unchanged. No heart failure pattern
[2022-05-26 17:50] VITALS: BP 108/61; PULSE 85
--- NOTE | 2022-05-27 09:56 | FL ---
Intraoperative/procedural fluoroscopic services were provided. Total fluoroscopy time is 3 seconds wi th a total of 1 submitted images to PACS. Please see the operative/procedural note for further detail s.
== END 2022-05-26 18:05 | disposition home or self-care (01) ==
LOC: OR 13:21
PROVIDERS: ATTEND Surgery
DX: C34.11 Malignant neoplasm of upper lobe, right bronchus or lung (principal); J44.9 Chronic obstructive pulmonary disease, unspecified; I10 Essential (primary) hypertension; Z85.841 Personal history of malignant neoplasm of brain; Z90.49 Acquired absence of other specified parts of digestive tract; Z87.891 Personal history of nicotine dependence; Z80.42 Family history of malignant neoplasm of prostate; Z79.899 Other long term (current) drug therapy
CPT/HCPCS: 85025; 77001; 36561; C1788; J2250; J0330; J1100; J0690; J2405; J2001 ×2; J3010; J1170; J2370; J2704; J1644

== ENCOUNTER → 2022-07-07 | Outpatient (CLI) | payer BC ==
--- NOTE | 2022-07-10 20:36 | PE ---
EXAMINATION TYPE: PET CT fusion skull to thigh DATE OF EXAM: 07/07/2022 CLINICAL INDICATION:Male, 57 years old with history of C34.11 lung ca; TECHNIQUE: Following the intravenous administration of 10.79 mCi of F-18 FDG, whole body images are performed from the skull base to the midthigh. Images are reviewed on the computer in the coronal, axial, and sagittal planes. Reconstructed rotating images are created on independent workstation and reviewed on the computer. A non-contrast CT is performed in conjunction with the PET scan. Glucose level 113 mg/dL COMPARISON: CT 02/15/2022, PET/CT 05/20/2022, FINDINGS: Mediastinal SUV mean is 1.5. Hepatic parenchyma SUV mean is 2.0. SKULL BASE AND NECK: No suspicious FDG activity. CHEST, MEDIASTINUM, AND HILAR REGION: * Primary mass seen on prior has decreased in size now with surrounding consolidation changes limiti ng measurements. There is diffuse low-level FDG activity within the collapsed lung on the right today 5.6 previously Max SUV 7.6. Enlarging right hydropneumothorax. No mediastinal noted. * Prevascular space lymph node max SUV 1.7 measuring 9 mm in short axis. ABDOMEN AND PELVIS: * Scattered foci of increased radiotracer uptake is seen within the liver is now below background le vels.. * Right hepatic lobe segment 4A Max SUV 10.9, previously 9.2 and new additional smaller deposit in s egment 4A max SUV 6 7. * Additional new areas within segment 7 Max SUV 7.5. * New Left adrenal gland focus of FDG activity slight nodular contour measuring 14 x 8 mm with axis SUV 3.6. * Indeterminate focus near the pancreatic head max SUV 3.2 unclear what this correlates to on CT nayana ging. OSSEOUS STRUCTURES: Erosive changes to the left first rib medially max SUV 9.7, previously 7.6 . Rashid tional diffuse uptake within the osseous structures favored represent colony-stimulating factor peterson es. OTHER CT: Bilateral aphakia. Right chest wall [id number] with distal tip terminating in the superi or vena cava. Atherosclerosis of the arterial vasculature. The gallbladder surgically absent. Bilater al renal cysts. Colonic diverticulosis. Multilevel disc degeneration changes in sacroiliac joint dege neration. IMPRESSION: 1. Progression of disease with increased right pulmonary hilum and left first rib metabolic activity . 2. Enlarging right hydropneumothorax when compared to prior with surrounding consolidation changes i n the lungs likely representing infectious/inflammatory process.
== END | disposition home or self-care (01) ==
LOC: RADPETMAIN 06:27
PROVIDERS: ATTEND Internal Medicine Hematology & Oncology
DX: C34.11 Malignant neoplasm of upper lobe, right bronchus or lung (principal); J94.8 Other specified pleural conditions
CPT/HCPCS: 78815; A9552